=== PATIENT | female | born 1995 | race Caucasian/White ===

== ENCOUNTER 2019-09-29 14:17 | Outpatient (CLI) | payer OTHER, SELFPAY ==
--- NOTE | ~2019-09-29 | US_ITS ---
EXAMINATION: US OB <= 14 weeks fetus DATE: 09/29/2019 15:01 INDICATION: Threatened . Assess dating and viability of during first trimester. TECHNIQUE: Real-time pelvic ultrasound utilizing both a transvaginal and transabdominal probe was pe rformed. The interpreting radiologist was not present for the study. COMPARISON: None. FINDINGS: The uterus measures 10.4 x 5.0 x 6.2 cm. There is an intrauterine gestational sac. A yolk sac and fe kody pole are identified. The crown rump length measures 1.9 cm, which correlates with an estimated ge stational age of 8 weeks and 3 days. heart motion is identified measuring 161 beats per minute (bpm) by M-mode Doppler. The right ovary is not visualized. The left ovary measures 2.7 x 2.2 x 2.7 cm. 2.2 cm anechoic corpus luteum cyst in the left ovary. Vascular flow identified at the left ovary on color Doppler. There is no free fluid in the pelvis. IMPRESSION: 1. Single living fetus with heart rate of 161 bpm. 2. Gestational age by ultrasound of 8 weeks 3 day(s) +/- 4 day(s) with ultrasound estimated date of delivery (YORDY) of 05/07/2020. Reviewed, dictated and finalized at location A. IMPRESSION: 1. Single living fetus with heart rate of 161 bpm. 2. Gestational age by ultrasound of 8 weeks 3 day(s) +/- 4 day(s) with ultraso und estimated date of delivery (YORDY) of 05/07/2020.
== END 2019-09-29 14:18 | disposition home or self-care (01) ==
PROVIDERS: Visit Provider Obstetrics & Gynecology
DX: O20.0 Threatened abortion (principal); Z3A.08 8 weeks gestation of pregnancy
CPT/HCPCS: 76801

== ENCOUNTER 2019-09-29 15:39 | Outpatient (RCR) | payer OTHER, SELFPAY | END 2019-12-28 23:59 | disposition home or self-care (01) | LOC: ANHLAB 15:39 | PROVIDERS: Visit Provider Obstetrics & Gynecology | DX: O20.0 Threatened abortion (principal); Z3A.00 Weeks of gestation of pregnancy not specified | CPT/HCPCS: 36415; 86900; 86901 ==

== ENCOUNTER 2020-03-17 14:15 | Outpatient (RCR) | payer OTHER, SELFPAY ==
--- NOTE | 2020-03-17 15:59 | PTOPEVAL ---
INITIAL PHYSICAL THERAPY EVALUATION and PLAN OF CARE Thank you for referring Judith Gonzales to [facility].? I will recheck Judith in 2 wks, due to my vacation. If further PT is needed, will follow 1-2x/week for 3 weeks. Please review, sign, date and return this plan of care ARMINDA. I agree with and certify that the following plan of care is medically necessary. Referring Physician Date Admitting Provider: Attending Provider: Angela Mcgill CNM Referring Provider: *PT Outpatient Evaluation Start: 03/17/20 14:46 Freq: Status: Active Protocol: Document 03/17/20 14:40 TRACI (Rec: 03/17/20 15:59 TRACI [id number]) Therapy Assessment Status Assessment Status Assessment Status Evaluation Outpatient Past Medical History Past Medical History No Past Medical/Surgical History Patient/Family Denies Significant Past Medical/ Surgical History Source of Past Medical History Patient Evaluation Information Problem Diagnosis pelvic pain, hip pain Onset about 6 wks ago Additional Evaluation Detail - due date April Subjective Information Began to have hip, pelvic pain Query Text:As Reported By Patient/ - SIJ/maternity belt was Family gotten for her - which has helped. About 2 wks ago - climbing stairs during fire drill - after that couldn't walk, felt like she pulled a muscle in her pelvis. Lasted for the rest of the day - felt a little better next morning. Will have discomfort throughout the day - comes and goes. Generally sleeps okay. Mornings - pretty good - gets worse as day goes on. At times will have difficulty putting wt on R LE, legs feel unequal when standing. 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 Hand Dominance Right Medications Home Meds (Include: OTC, RX, Vitamins, vitamins, iron Herbals, Dose, Route,and Frequency) Query Text:Home Med Entries Will No Longer Recall From Past Visits. Home Meds Must Be Re-entered With Each Visit. Comments Additional Prior Level of Function recreation - sleep, cook, Comments garden, shop, crafting Pain Assessment Timing of Pain Assessment Timing of Pain Assessment
--- NOTE | 2020-03-31 15:34 | PCPTNOTE ---
Patient called & cancelled scheduled appointment this date due to feeling better, no need for PT. Stated will call if pain returns.
--- NOTE | 2020-04-20 08:06 | PCPTNOTE ---
PHYSICAL THERAPY DISCHARGE NOTE Admitting Provider: Attending Provider: Gwen Perez MD Patient:Judith Gonzales Date of :1995 Judith has not returned for any further treatments since 03/17/2020. She cancelled her follow up visit as she was doing well, therefore she will be discharged at this time. Patient?s initial visit was on 03/17/2020 14:30 and she had a total of 1 visit. The goals have been met. Thank you for referring Judith to [facility]. Please review, sign, date and return this discharge summary ARMINDA. I have been updated about Judith's current status and I agree with discharge from the above service at this time. Referring Physician Date
== END 2020-04-21 11:06 | disposition home or self-care (01) ==
LOC: ANHPT 14:15
PROVIDERS: Visit Provider Obstetrics & Gynecology
DX: R10.2 Pelvic and perineal pain (principal); M25.559 Pain in unspecified hip
CPT/HCPCS: 97110; 97161

== ENCOUNTER 2020-04-29 15:00 | Outpatient (CLI) | payer OTHER, SELFPAY ==
[2020-04-29 15:40] LABS: Basophils Percent Auto 0.3 % (0.2-1.2); Eosinophils Percent Auto 0.5 % (0-4.4); Hematocrit 38.5 % (37.0-47.0); Hemoglobin 12.7 g/dL (12.0-15.0); Immature Granulocyte Absolute 0.07 K/mm3 (0.00-0.031); Immature Granulocyte Percent A 0.8 % (0-0.5); Lymphocytes Absolute Auto 2.03 K/mm3 (0.9-3.2); Lymphocytes Percent Auto 23.5 % (18.3-44.2); Mean Platelet Volume 9.8 fl (7.4-10.4); Monocytes Absolute Auto 0.6 K/mm3 (0.1-0.6); Monocytes Percent Auto 6.9 % (2.6-8.5); Neutrophils Absolute Auto 5.9 K/mm3 (1.3-6.7); Nucleated Red Blood Cells Perc 0.2 % (0.0-0.2); Platelet Count Result 301 k/mm3 (150-375); Red Blood Count 3.85 M/mm3 (4.2-5.4); Red Cell Distribution Width 14.6 % (11.5-14.5); White Blood Count 8.7 K/mm3 (4.5-10.0)
[2020-04-29 15:45] VITALS: BP 127/73; PULSE 98
[2020-04-29 15:51] LABS: Potassium 3.6 mmol/L (3.4-5.0)
[2020-04-29 16:00] VITALS: BP 119/79; PULSE 101
[2020-04-29 16:02] LABS: Alanine Aminotransferase 14 U/L (4-35); Albumin Level 3.8 g/dL (3.5-5.1); Alkaline Phosphatase 171 U/L (38-126); Anion Gap 12 mmol/L (8-16); Aspartate Amino Transferase 29 U/L (14-36); Bilirubin,Total 0.3 mg/dL (0.2-1.3); Blood Urea Nitrogen 7 mg/dL (7-17); Calcium 9.5 mg/dL (8.4-10.2); Carbon Dioxide 22 mmol/L (22-30); Chloride 105 mmol/L (98-107); Estimated Glomerular Filt Rate > 60; Glucose 129 mg/dL (65-105); Sodium 139 mmol/L (137-145); Uric Acid 6.1 mg/dL (2.5-7.5)
[2020-04-29 16:15] VITALS: BP 116/75; PULSE 99
[2020-04-29 16:20] VITALS: BP 127/73; PULSE 112
[2020-04-29 16:27] VITALS: BP 127/73; PULSE 112
[2020-04-29 16:43] LABS: Add Urine Microscopic? YES; Appearance Urine Cloudy (Clear); Bacteria Urine Trace /hpf; Bilirubin Urine Negative (Negative); Blood Urine Negative (Negative); Color Urine Yellow (Yellow); Glucose Urine UA Negative (Negative); Ketones Urine Negative (Negative); Leukocyte Esterase Ur 3+ LEU/UL (NEGATIVE); Nitrate Urine Negative (Negative); Protein Urine Negative (Negative); Specific Grav Ur 1.012 (1.001-1.035); Squamous Epithelial Cell Urine Many /hpf (Few); Urobilinogen Urine Negative mg/dL (<2.0); WBC Urine 51-75 /hpf (0-3)
[2020-04-29 16:58] LABS: Creatinine Urine 64.9 mg/dL; Total Protein Urine Random 11 mg/dL
== END 2020-04-29 16:35 | disposition home or self-care (01) ==
LOC: ANHOBOP 15:05 → ANHOBPP 15:05
PROVIDERS: Visit Provider Obstetrics & Gynecology
DX: O13.9 Gestational [pregnancy-induced] hypertension without significant proteinuria, unspecified trimester (principal); Z3A.00 Weeks of gestation of pregnancy not specified
CPT/HCPCS: 36415; 59025; 80053; 81001; 82570; 84156; 84550; 85025; 87086; 87088; 99199

== ENCOUNTER 2020-05-03 05:05 | Inpatient (IN) | payer OTHER, SELFPAY ==
[2020-05-03] VITALS (122 sets, daily range): BP systolic 100–146; BP diastolic 39–91; PULSE 57–135; RESP 18; TEMP 36.8–37.7; O2SAT 73–100; BMI 30.8
--- NOTE | 2020-05-03 05:44 | LDADM ---
This patient, Judith Gonzales, was admitted to Labor/Delivery/Recovery 104 on 05/03/20 at 05:05. Plans for labor, pain management and were discussed with patient. Patient/family oriented to hospital policies and general routines including ID bracelet, bed and alarms, visiting hours, pain management, procedures, bathroom and other care routines, personal items, smoking policy, room service/diet and guest tray routines, security routines, and visiting hours. Patient/Family are encouraged to report perceived risks to care and to ask questions if they do not understand what they are told or what they should do. See OBIX for further documentation.
[2020-05-03 06:02] LABS: Basophils Percent Auto 0.4 % (0.2-1.2); Eosinophils Absolute Auto 0.1 K/mm3 (0-0.3); Hemoglobin 12.4 g/dL (12.0-15.0); Immature Granulocyte Percent A 1.1 % (0-0.5); Lymphocytes Absolute Auto 2.36 K/mm3 (0.9-3.2); Mean Corpuscular HGB Conc 34.4 g/dl (32-36); Mean Corpuscular Hemoglobin 32.8 pg (26-34); Mean Corpuscular Volume 95.2 fl (80-100); Mean Platelet Volume 9.8 fl (7.4-10.4); Monocytes Absolute Auto 0.7 K/mm3 (0.1-0.6); Monocytes Percent Auto 7.9 % (2.6-8.5); Neutrophils Absolute Auto 5.8 K/mm3 (1.3-6.7); Neutrophils Percent Auto 63.6 % (45.5-73.1); Nucleated Red Blood Cells Perc 0.3 % (0.0-0.2); Platelet Count Result 306 k/mm3 (150-375); Red Blood Count 3.78 M/mm3 (4.2-5.4); Red Cell Distribution Width 14.3 % (11.5-14.5); White Blood Count 9.1 K/mm3 (4.5-10.0)
--- NOTE | 2020-05-03 06:03 | P.PNAN_ITS ---
Anes - Eval Pre Procedure Procedure: labor epidural Date/Time: 05/03/20 06:03 Surgeon: bryce Pre Op Diagnosis: Induction of Labor Patient Data Age: 24 Gender: F Height: 1.65 m Weight: 84 kg Last Vital Signs Temp 36.8 C 05/03/20 05:31 Pulse 101 H 05/03/20 06:01 BP 123/79 05/03/20 06:01 Allergies Allergy/AdvReac Type Severity Reaction Status Date / Time amoxicillin Allergy Unknown itchy Verified 04/11/20 13:41 Home Medications Medication Instructions Recorded Confirmed Type PNV cmb#95-ferrous fumarate-FA 1 tablet PO DAILY 04/11/20 04/11/20 History [] ferrous sulfate 143 mg PO ONCE 04/11/20 04/11/20 History Laboratory Tests 05/03/20 05:38 WBC Pending RBC Pending Hgb Pending Hct Pending MCV Pending MCH Pending MCHC Pending RDW Pending Plt Count Pending MPV Pending Immature Gran % (Auto) Pending Neut % (Auto) Pending Lymph % (Auto) Pending Kaufman % (Auto) Pending Eos % (Auto) Pending Baso % (Auto) Pending Lymph # (Auto) Pending Kaufman # (Auto) Pending Eos # (Auto) Pending Baso # (Auto) Pending Abs Immat Gran (auto) Pending Absolute Neuts (auto) Pending Absolute Nucleated RBC Pending Nucleated RBC % Pending Patient hx anesthesia problems: none Family hx anesthesia problems: none PMFSH Family History Family History Father Depression Sibling Heart murmur Social History Social History (System 09/30/19 @ 13:57 by Benita Victor) Smoking status: Never smoker Second hand tobacco smoke exposure: No Substance use: never Spiritual care concerns: No Exam Day of Procedure 05/03/20 06:03
[2020-05-03] MEDS: LACTATED RINGERS 1,000 ML 125 ML IV CONT ×2 (06:04→09:37)
[2020-05-03] MEDS: OXYTOCIN 30 UNITS/NS 500 ML 30 UNITS/500 ML BAG 6 UNITS IV CONT (06:04)
--- NOTE | 2020-05-03 07:48 | WPDOBADMIT ---
Obstetrics - Admit Note Admission Note: record reviewed. No pertinent additions to the history and/or any subsequent changes in the physical findings that are not consistent with the expected course of the were found. EIL at 39.2 weeks, SVE 3-4/70/-1 AROM small amount of light meconium stained fluid Additions to the history and/or subsequent changes in the physical findings follow. None.
[2020-05-03 08:57] LABS: Rapid Plasma Reagin Non-Reactive (NonReactive)
[2020-05-03] MEDS: ONDANSETRON INJ 4 MG/2 ML VIAL IV PUSH (12:05)
[2020-05-03] MEDS: CLINDAMYCIN 900 MG/NS 50 ML 900 MG/50 ML PIGGYBACK 50 MG IVPB ×2 (15:08→23:57)
--- NOTE | 2020-05-03 17:39 | PM.OBPRVD ---
OB - Delivery Note Procedure Delivery date: 05/03/20 Procedure: vaginal . events: Labor Induction Intrapartal events: None Induction method: AROM and per pitocin protocol Delivery monitor: external FHT and internal uterine Route of delivery: Episiotomy description: None Laceration Description: Vaginal - 2nd Degree Delivery repair: vicryl Specimen: Yes Estimated blood loss (mL): 435 Anesthesia type: Epidural Disposition: other () Baby Date of : 05/03/20 Time of : 17:18 Weeks of gestation at delivery: 39 Infant gender: Female Weight (pounds): 9 Weight (ounces): 7 presentation: vertex position: Right Occiput Anterior Placenta delivery description: Spontaneous cord vessel description: 3 Vessels, Loose and Around Body x1 score one minute: 8 score five minutes: 9 Narrative: Mom and baby skin to skin after repair completed.
[2020-05-03] MEDS: OXYTOCIN 30 UNITS/NS 500 ML 30 UNITS/500 ML BAG 125 UNITS IV CONT (17:50)
[2020-05-03] MEDS: BENZOCAINE 20% AER SPR (*SP) 56 GM CAN 1 SPRAY TOPICAL (19:23)
[2020-05-03] MEDS: WITCH HAZEL 40 PADS 1 PAD TOPICAL (19:23)
[2020-05-03] MEDS: IBUPROFEN 600 MG TABLET PO (20:12)
--- NOTE | 2020-05-03 20:37 | OBPPTRN ---
Patient transferred to post room 284 via wheelchair. Support person present. Oriented to unit, room, information board, rooming in, admission packet and security measures. Patient verbalizes understanding.
[2020-05-03] MEDS: ACETAMINOPHEN 325 MG TABLET 650 MG PO (23:57)
[2020-05-04] MEDS: IBUPROFEN 600 MG TABLET PO ×3 (03:22→14:46)
[2020-05-04 05:08] LABS: Hematocrit 27.2 % (37.0-47.0); Hemoglobin 9.2 g/dL (12.0-15.0)
[2020-05-04 07:45] VITALS: BP 111/80; PULSE 94; RESP 18; TEMP 36.6; O2SAT 99
--- NOTE | 2020-05-04 07:52 | PM.OBPNVD ---
OB - PN: Subj Subjective Date/time seen: 05/04/20 07:52 Patient comments: no complaints baby status: doing well OB - PN: Obj Data Labs CBC & Chem 7: 05/04/20 04:37 Labs: Laboratory Results - last 24 hr 05/03/20 05/04/20 05:38 04:37 Hgb 9.2 L D Hct 27.2 L RPR Non-reactive OB - PN A/P Plan day: 1 Plan: routine care Time Spent With Patient Time: Total time spent is greater than 50% in coordination of care (as documented) at patient's floor/unit and/or counseling patient: Time with patient: less than 15 minutes Review of Systems Review of Systems: All systems reviewed & are unremarkable except as noted in HPI and below Exam Narrative: Exam Narrative: Fundus firm and vaginal flow controlled. No lower ext redness, warmth, or edema. Negative homans. Const: General: comfortable Chest: Breast/axilla inspection: normal inspection of the breasts Resp: Effort & Inspection: normal respiratory effort Cardio: Rate: regular rate GI: GI Palp: Yes Soft to palpation Psych: Appearance: grossly normal Affect: normal affect Attitude: cooperative Thought content: Yes Normal thought content present Judgement: Good judgement present (Psych)
[2020-05-04] MEDS: POLYSACCHARIDE IRON COMPLEX 150 MG CAPSULE PO ×2 (09:11→16:36)
[2020-05-04] MEDS: MULTIVIT/MIN/PREN/FOL AC/IRON TABLET 1 TAB PO (09:11)
[2020-05-04] MEDS: DOCUSATE SODIUM 100 MG CAPSULE PO ×2 (09:11→16:36)
[2020-05-04] MEDS: ACETAMINOPHEN 325 MG TABLET 650 MG PO ×2 (12:25→23:41)
--- NOTE | 2020-05-04 13:20 | WPDANLDPN2 ---
Anes-Prog Note L&D Date/Time: 05/04/20 13:20 Comfortable throughout: labor and delivery Neuraxial method: epidural Epidural/Spinal procedure site: clean & non-tender Neuro status: Neuro function grossly intact. Cardiovascular status: normal Respiratory status: normal Airway patency: baseline Mental status: baseline Post-Op hydration status: normal Vital Signs: Last Vital Signs Temp 97.8 F 05/04/20 07:45 Pulse 94 05/04/20 07:45 Resp 18 05/04/20 07:45 BP 111/80 05/04/20 07:45 Pulse Ox 99 05/04/20 07:45 Pain score (VAS): 0/10 I/O: Intake & Output 05/03/20 05/04/20 05/04/20 23:59 07:59 15:59 Intake Total 2050 50 Output Total 300 Balance 1750 50 Patient feedback: Patient satisfied with anesthetic care.
--- NOTE | 2020-05-04 19:05 | PC.NURSE ---
1700 Patient and FOB viewed the discharge video Mother & Baby Care, The First Two Weeks . Patient was given the opportunity and encouraged to ask questions. Patient verbalized understanding of information shared and has been given the mother/baby guide for home reference.
[2020-05-04 21:00] VITALS: BP 123/79; PULSE 94; RESP 16; TEMP 36.4; O2SAT 100
[2020-05-05] MEDS: IBUPROFEN 600 MG TABLET PO (05:30)
[2020-05-05 08:15] VITALS: BP 124/79; PULSE 99; RESP 18; TEMP 36.6; O2SAT 99
--- NOTE | 2020-05-05 08:15 | PC.NURSE ---
Consulted with patient, mother reports has been going well, without difficulties or discomfort. Reviewed feeding cues, frequencies, duration of feedings, feeding elimination flow sheet, and signs of adequate intake. Demonstrated stimulation techniques to wake for feeding. Assisted with to breast. Reviewed positioning/alignment in cross cradle, holding breast in U hold and guided asymmetrical latch on. discussed rational for each. Infant was able to latch correctly with first attempt. nursed eagerly, with steady draws and frequent swallowing noted. Reviewed signs of a correct latch, effective nursing and suck swallow ratio. was able to maintain latch without discomfort to mother. Nipple care reviewed. Suggested to stimulate while feeding to keep infant awake and nursing effectively for increased intake and to assist with maintaining deep latch. Instructed mother to call out for RN assistance if she is unable to latch infant for feeding or she has discomfort with nursing. Instructed feeding should be initiated three hours from start of last feeding or if feeding cues are noted before. Mother voiced understanding of information shared. Mother is able to independently latch infant with appropriate positioning/alignment. She is feeding as required and waking infant to feed if needed. Infant has had at least 8 effective feedings in the past 24 hours, and is currently meeting outcomes for weight, output, jaundice and feeding frequencies. Mother states she feels confident to continue effective at home. Reviewed transition to breast milk, signs of adequate intake, and engorgement/relief. Instructed to call ICP if intake/output less than required. Reviewed regular medications mother is taking. Information provided per Ysabel. Reviewed community resources on the [facility] website and in the Mom/Baby guide. Information on outpatient services provided. Mother has no further questions at this time.
--- NOTE | 2020-05-05 08:18 | PM.OBPNVD ---
OB - PN: Subj Subjective Date/time seen: 05/05/20 08:18 Patient comments: no complaints baby status: doing well OB - PN: Obj Data Labs CBC & Chem 7: 05/04/20 04:37 OB - PN A/P Plan day: 2 Plan: routine care and discharge home (F/U in 4 weeks) Time Spent With Patient Time: Total time spent is greater than 50% in coordination of care (as documented) at patient's floor/unit and/or counseling patient: Time with patient: less than 15 minutes Review of Systems Review of Systems: All systems reviewed & are unremarkable except as noted in HPI and below Exam Narrative: Exam Narrative: Fundus firm and vaginal flow controlled. No lower ext redness, warmth, or edema. Negative homans. Const: General: comfortable Chest: Breast/axilla inspection: normal inspection of the breasts Resp: Effort & Inspection: normal respiratory effort Cardio: Rate: regular rate GI: GI Palp: Yes Soft to palpation Psych: Appearance: grossly normal Affect: normal affect Attitude: cooperative Thought content: Yes Normal thought content present Judgement: Good judgement present (Psych)
[2020-05-05] MEDS: MULTIVIT/MIN/PREN/FOL AC/IRON TABLET 1 TAB PO (10:10)
[2020-05-05] MEDS: POLYSACCHARIDE IRON COMPLEX 150 MG CAPSULE PO (10:10)
[2020-05-05] MEDS: DOCUSATE SODIUM 100 MG CAPSULE PO (10:10)
[2020-05-05] MEDS: ACETAMINOPHEN 325 MG TABLET 650 MG PO (10:11)
--- NOTE | 2020-05-06 03:08 | P.DS_ITS ---
DS: Admitting Diagnosis Admitting Diagnosis Admitting Diagnosis: Induction of Labor OB - DS: Summary OB Procedures : None OB Procedures Intrapartum: Spontaneous Vag Delivery OB Procedures: : None Time Spent with Patient Time attestation: Total time spent providing and/or coordinating discharge services: DS: Data Data Completed and Pending Pending studies at discharge: Pending at discharge 05/03/20 18:06 Surgical [PTH] Routine Discharge Plan Discharge Attending physician on discharge: Gwen Perez Discharging Clinician: Angela Mcgill Patient Disposition: Home, Self-Care Activity: pelvic rest Diet: as tolerated Discharge Instructions: Education: Mom and Baby Guide Given to: Mother Follow-Up: Call your delivering provider's office for an appointment to be seen in: 4 Weeks Mom and baby should come to the [facility] for the follow-up appointment. Appointment Date/Time: May 06, 2020 at 9:00 am What to expect at your follow-up visit: Physical Assessment Call [phone] if you are unable to keep your appointment time. BREAST CARE: * Wear a snug supportive bra. * For engorgement discomfort: Breast Feeding: * Apply warm moist washcloths * Express milk as needed to relieve engorgement * Wear loose clothing * For sore nipples: * Identify correct latch-on * Apply warm moist washcloths before and after nursing * Air dry nipples after nursing * May apply Lansinoh cream to nipples EPISIOTOMY/PERINEAL CARE: * Until bleeding stops, use your aaron bottle after urinating * Change your pad frequently throughout the day * You may take sitz baths several times a day (fill your bathtub with warm water and soak for 20 minutes.) Do NOT bathe in the water * No tub baths until seen by your physician - You may shower ACTIVITY: * Rest as much as possible. * Do not exercise or lift anything heavier than your baby (such as laundry or other children.) * Avoid stairs or driving as much as possible. * Do not put anything into the vagina. No douching, tampons, or sexual activity until seen by physician. NOTIFY PHYSICIAN IF YOU HAVE ANY QUESTIONS OR IF ANY OF THE FOLLOWING SYMPTOMS OCCUR: * If your stitches become red, swollen, or more painful than what you have experienced in the hospital. * If your vaginal bleeding becomes foul smelling. * If your vaginal bleeding becomes more heavy than a period or if your bleeding changes from pink to bright red. However, you may pass an occasional walnut- sized clot once or twice for the first week . * If you experience a sharp, shooting pain in you calves. * If you discover a hard, reddened area on your breast or if you experience flu- like symptoms. DIET: * Eat regular, well-balanced meals. * Drink plenty of fluids daily. If , drink to thirst. 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
[2020-05-06 08:58] VITALS: BP 127/86; PULSE 81; RESP 20; TEMP 37.2; O2SAT 100
== END 2020-05-05 12:23 | disposition home or self-care (01) | DRG 807 ==
LOC: ANHOB2 05-05 11:37 → ANHLDR 05-06 10:20
PROVIDERS: Advanced Practice Midwife; Admitting Provider Obstetrics & Gynecology; Visit Provider Obstetrics & Gynecology
DX: O77.0 Labor and delivery complicated by meconium in amniotic fluid (principal); Z37.0 Single live birth; Z3A.39 39 weeks gestation of pregnancy; O69.2XX0 Labor and delivery complicated by other cord entanglement, with compression, not applicable or unspecified; O70.1 Second degree perineal laceration during delivery
CPT/HCPCS: 36415; 85014; 85018; 85025; 86592; 86850; 86900; 86901; 88307; A9270; J0131; J2405; J2590; J2795; J7120

== ENCOUNTER 2020-05-07 20:12 | Emergency (ER) | payer OTHER, SELFPAY ==
--- NOTE | ~2020-05-07 | XR_ITS ---
EXAMINATION: XR chest 1V portable EXAM DATE: 05/07/2020 21:29 INDICATION: Dyspnea. 4 days . Weakness, headache, swelling. TECHNIQUE: Portable AP frontal chest x-ray was obtained. There is no prior study for comparison. FINDINGS: The lungs are clear. There are no pleural effusions. The cardiomediastinal silhouette is within normal limits. There is no pneumothorax suspected. The bones and soft tissues are unremarkab le. IMPRESSION: No acute cardiopulmonary findings. Reviewed, dictated and finalized at location A.
[2020-05-07 20:25] VITALS: BP 150/85; PULSE 98; RESP 18; TEMP 36.4; O2SAT 100
--- NOTE | 2020-05-07 21:01 | ECG_ITS ---
Measurements Intervals [place] Rate: 68 P: 42 [place]: 162 QRS: 42 QRSD: 83 T: 29 QT: 357 QTc: 382 Interpretive Statements SINUS RHYTHM NORMAL ECG Electronically Signed On 05-08-2020 7:06:09 CDT by Chetan Ba D.O.
--- NOTE | 2020-05-07 21:03 | ED.GENADULT ---
HPI - General Adult General Chief complaint: OB/Uterine Contractions Stated complaint: post complications Time Seen by Provider: 05/07/20 20:45 Source: RN notes reviewed History of Present Illness HPI narrative: Patient presents to emergency department from home for postoperative complication. Patient states that she had a vaginal delivery 4 days ago with no complications. States that since that time she has been having some intermittent headaches as well as intermittent swelling of her hands and her feet intermittent dyspnea and midsternal chest tightness. Currently she denies having a headache chest pain or shortness of breath. 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 Perez this evening and was recommended come to the emergency department for further evaluation. Denies any fevers or chills cough vomiting or diarrhea does note intermittent nausea Related Data Home Medications Medication Instructions Recorded Confirmed PNV cmb#95-ferrous fumarate-FA 1 tablet PO DAILY 04/11/20 04/11/20 [] ferrous sulfate 143 mg PO ONCE 04/11/20 04/11/20 Allergies Allergy/AdvReac Type Severity Reaction Status Date / Time amoxicillin Allergy Unknown itchy Verified 04/11/20 13:41 Review of Systems Review of Systems: Narrative: Gen.: Denies fevers or chills Eyes: Denies eye pain or visual change ENT: Denies congestion Respiratory: Reports intermittent shortness of breath denies cough CV: Reports intermittent chest pain denies palpitations GI: Denies abdominal pain vomiting or diarrhea. Reports intermittent nausea denies burning, urgency, frequency or hematuria Musculoskeletal: Denies back pain or muscle pain Neuro: Denies numbness, tingling, weakness or focal weakness Skin: Denies rash Except as documented, all other systems reviewed and negative [facility] Past Medical History Medical History (Updated 05/07/20 @ 23:21 by Navid Wray DO) Patient denies significant medical history Family History Family History Father Depression Sibling Heart murmur Social History Social History Smoking status: Never smoker Second hand tobacco smoke exposure: No Substance use: never Spiritual care concerns: No Exam Narrative: Exam Narrative: APPEARANCE: No acute distress, nontoxic, resting in bed EYES: EOMI, PERRL HEENT: Normocephalic, atraumatic, OMM RESPIRATORY: No respiratory distress Clear to auscultation bilaterally with no rhonchi wheezing or rales. CARDIOVASCULAR: Regular rate and rhythm without murmurs rubs or gallops. ABDOMINAL: Soft, nontender, nondistended, no rebound or guarding MUSCULOSKELETAl: Moves all extremities. No clubbing, cyanosis or edema. NEURO: Awake and alert x 4. Following commands, speech normal, no focal deficits SKIN:: Warm, dry. No rashes lesions or abrasions PSYCHIATRIC: Normal affect/mood, Course Course Emergency Course: Patient is remained symptomatic throughout her stay in the ED Called and discussed with Dr. Perez presentation work-up. Discussed lab results vital signs. At the time feels patient may be discharged home recommend patient started on Macrobid for UTI and will follow as outpatient Discussed with patient results of workup and diagnosis. Discussed need for follow-up with primary care, proper use of medication, and reasons to return to the emergency department. Patient understands and agrees to current treatment plan Vital Signs Vital signs: Vital Signs Temperature 97.6 F 05/07/20 20:25 Pulse Rate 98 05/07/20 20:25 Respiratory Rate 18 05/07/20 20:25 Blood Pressure 150/85 H 05/07/20 20:25 Pulse Oximetry 100 05/07/20 20:25 Temperature 97.6 F 05/07/20 20:25 Pulse Rate 79 05/07/20 22:12 Respiratory Rate 20 05/07/20 22:12 Blood Pres
[2020-05-07 21:58] LABS: Basophils Absolute Auto 0.1 K/mm3 (0.0-0.1); Basophils Percent Auto 0.6 % (0.2-1.2); Eosinophils Absolute Auto 0.2 K/mm3 (0-0.3); Eosinophils Percent Auto 2.2 % (0-4.4); Hematocrit 29.7 % (37.0-47.0); Hemoglobin 9.7 g/dL (12.0-15.0); Immature Granulocyte Absolute 0.21 K/mm3 (0.00-0.031); Immature Granulocyte Percent A 2.4 % (0-0.5); Lymphocytes Absolute Auto 2.29 K/mm3 (0.9-3.2); Lymphocytes Percent Auto 26.2 % (18.3-44.2); Mean Corpuscular HGB Conc 32.7 g/dl (32-36); Mean Corpuscular Hemoglobin 33.1 pg (26-34); Mean Corpuscular Volume 101.4 fl (80-100); Mean Platelet Volume 8.8 fl (7.4-10.4); Monocytes Absolute Auto 0.5 K/mm3 (0.1-0.6); Monocytes Percent Auto 5.7 % (2.6-8.5); Neutrophils Absolute Auto 5.5 K/mm3 (1.3-6.7); Neutrophils Percent Auto 62.9 % (45.5-73.1); Nucleated Red Blood Cells Absolute Auto 0.1 K/mm3 (0.0-0.012); Nucleated Red Blood Cells Perc 0.7 % (0.0-0.2); Platelet Count Result 385 k/mm3 (150-375); Red Blood Count 2.93 M/mm3 (4.2-5.4); White Blood Count 8.7 K/mm3 (4.5-10.0)
[2020-05-07 22:10] LABS: Alanine Aminotransferase 33 U/L (4-35); Albumin Level 3.4 g/dL (3.5-5.1); Alkaline Phosphatase 107 U/L (38-126); Anion Gap 7 mmol/L (8-16); Aspartate Amino Transferase 51 U/L (14-36); Bilirubin,Total 0.2 mg/dL (0.2-1.3); Blood Urea Nitrogen 10 mg/dL (7-17); Calcium 9.2 mg/dL (8.4-10.2); Carbon Dioxide 26 mmol/L (22-30); Chloride 109 mmol/L (98-107); Estimated CRCL calculation 98 ml/min; Estimated Glomerular Filt Rate > 60; Glucose 99 mg/dL (65-105); Potassium 4.1 mmol/L (3.4-5.0); Sodium 142 mmol/L (137-145)
[2020-05-07 22:12] VITALS: BP 134/84; PULSE 79; RESP 20; O2SAT 100
[2020-05-07 22:22] LABS: NT Pro B Type Natriuretic Pept 338 PG/ML (5-100); Troponin I < 0.012 ng/mL (0.000-0.034)
--- NOTE | 2020-05-07 22:23 | PC.NURSE ---
Pt currently pumping, pt denies and pain, nausea, dizziness, or Anderson at this time. Pt does have some swelling to her lower extremities.
[2020-05-07 22:39] LABS: Add Urine Microscopic? YES; Appearance Urine Clear (Clear); Bilirubin Urine Negative (Negative); Blood Urine 3+ (Negative); Color Urine Straw (Yellow); Glucose Urine UA Negative (Negative); Ketones Urine Negative (Negative); Leukocyte Esterase Ur 2+ LEU/UL (Negative); Mucus Urine Rare /lpf; Nitrate Urine Negative (Negative); Protein Urine Negative (Negative); RBC Urine >75 /hpf (0-2); Squamous Epithelial Cell Urine Rare /hpf (Few); Urobilinogen Urine Negative mg/dL (<2.0); WBC Urine 51-75 /hpf
[2020-05-07] MEDS: NITROFURANTOIN MONOHYD MACROCR 100 MG CAP PO (23:41)
[2020-05-08 00:07] VITALS: BP 127/86; PULSE 75; RESP 18; O2SAT 100
== END 2020-05-07 23:44 | disposition home or self-care (01) ==
PROVIDERS: Emergency Provider Emergency Medicine
DX: O86.20 Urinary tract infection following delivery, unspecified (principal); O90.89 Other complications of the puerperium, not elsewhere classified; R42 Dizziness and giddiness
CPT/HCPCS: 36415; 71045; 80053; 81001; 83880; 84484; 85025; 87086; 87088; 93005; 99284; A9270

== ENCOUNTER 2020-06-22 21:35 | Outpatient (CLI) | payer OTHER, SELFPAY ==
[2020-06-22] MEDS: IBUPROFEN 600 MG TABLET PO (22:08)
--- NOTE | 2020-06-22 22:10 | PC.NURSE ---
See Reagan Dockery CNM note
--- NOTE | 2020-06-22 22:37 | PM.IMHP ---
H&P: HPI History of Present Illness Date/Time: 06/22/20 22:37 Chief complaint: bleeding Narrative: Judith Gonzales is a 24 year old female 6 weeks pp who presents after small revision of laceration in office with continued bleeding. Pt couldn't get it to stop with guaze and pressure, no dizziness or lightheadedness Review of Systems Review of Systems: All systems reviewed & are unremarkable except as noted in HPI and below PMFSH Past Medical History Medical History (Updated 05/09/20 @ 00:00 by Gaye De La Rosa) Patient denies significant medical history Family History Family History Father Depression Sibling Heart murmur Social History Social History Smoking status: Never smoker Second hand tobacco smoke exposure: No Substance use: never Spiritual care concerns: No Meds Home Medications and Allergies Home Medications Medication Instructions Recorded Confirmed Type PNV cmb#95-ferrous fumarate-FA 1 tablet PO DAILY 04/11/20 04/11/20 History [] ferrous sulfate 143 mg PO ONCE 04/11/20 04/11/20 History nitrofurantoin monohyd/m-cryst 100 mg PO Q12H 7 Days #14 cap 05/07/20 Rx [Macrobid] Allergies Allergy/AdvReac Type Severity Reaction Status Date / Time amoxicillin Allergy Unknown itchy Verified 04/11/20 13:41 Exam Const: General: cooperative Nutritional Appearance: average body habitus Orientation/consciousness: patient oriented x3 Resp: Effort & Inspection: normal respiratory effort : OB/external & speculum: external exam normal (small oozing from left labia, silver nitrate and pressure applied) Assessment and Plan Additional Plan 1. pp revision of healed laceration, increased bleeding bleeding stopped, monitored and pt sent home with clean guaze, to monitor and leave in overnight, call in am for follow up. pt dc'd home with her
== END 2020-06-22 22:40 | disposition home or self-care (01) ==
LOC: ANHOBOP 21:38
PROVIDERS: Visit Provider Obstetrics & Gynecology
DX: O26.859 Spotting complicating pregnancy, unspecified trimester (principal); Z3A.00 Weeks of gestation of pregnancy not specified
CPT/HCPCS: 99199; A9270

== ENCOUNTER 2024-09-03 18:55 | Observation (INO) | payer OTHER, SELFPAY ==
--- OUTSIDE RECORDS SUMMARY | 2024-09-03 18:53 | XMS_ITS | Clinical Summary ---
Author Organization [facility] [place] [address] [facility] [place] Address [address] [facility] [place] [address] Care Team Providers Care Snowboard Designer Name Role Phone David Lindquist MD Primary Care Provider [phone] No, Physician Unavailable Lennie Dockery GIZZARD PEELER Unavailable [phone] Allergies Active Allergy Reactions Criticality Noted Date Comments Amoxicillin Itching Medium 04/18/2018 Amoxicillin Itching Low 05/23/2022 Medications cetirizine (ZyrTEC) 5 mg tablet Take 1 tablet (5 mg total) by mouth as needed for allergies Active norethindrone (MICRONOR) 0.35 mg tablet norethindrone (contraceptive) 0.35 mg tablet TAKE 1 TABLET BY MOUTH EVERY DAY Active promethazine-D M (PROMETHAZINE- DM) 1.25-3 mg/mL syrupIndicatio ns:Acute cough Take 5 mL by mouth every 4 (four) hours as needed for cough 120 mL 3 Active Additional Information Patient not taking.Reported on 06/19/2023 cyclobenzaprin e (FLEXERIL) 5 mg tablet Take 1 tablet (5 mg total) by mouth 3 (three) times a day as needed for muscle spasms 30 tablet 3 Active fluticasone propionate (FLONASE) 50 mcg/actuation nasal spray SHAKE LIQUID AND USE 2 SPRAYS IN EACH NOSTRIL DAILY 48 g 1 4 Active Active Problems Problem Noted Date Diagnosed Date Choroid plexus cyst 03/26/2024 Overview (03/26/2024): Resolved Hip pain 03/26/2024 Overview (03/26/2024): & pubis pain - referred to [facility] 03/17 Annual physical exam 06/19/2023 Assessment & Plan (06/19/2023 11:30 AM TEXTILE TECHNICAL OFFICER): Discussed lifestyle modifications, diet and exercise. Routine blood work ordered/reviewed today. Yearly vision and dental examinations. Tachycardia 09/06/2022 Essential hypertension 08/06/2022 Assessment & Plan (06/19/2023 11:32 AM TEXTILE TECHNICAL OFFICER): At goal at this time [place] current regimen Likely stress vs white coat syndrome related Assessment & Plan (03/14/2023 3:09 PM CDT): BP Readings from Last 3 Encounters: 03/14/23 132/82 02/04/23 124/86 11/29/22 110/92 Vitals BP 132/82 (BP Location: Left arm, Patient Position: Sitting) Pulse 124 Resp 16 Ht 165.1 cm (5' 5 ) Wt 77.1 kg (170 lb) SpO2 98% BMI 28.29 kg/m Lab Results Component Value Date POTASSIUM 4.7 05/23/2022 bp at goal at this time Blood Pressure Follow-up: Lifestyle modifications education provided on increase physical activity. Assessment & Plan (09/06/2022 10:29 AM TEXTILE TECHNICAL OFFICER): BP Readings from Last 3 Encounters: 09/06/22 130/86 08/06/22 121/84 05/23/22 128/91 Vitals BP 130/86 (BP Location: Right arm, Patient Position: Sitting) Pulse 104 Resp 18 Ht 168 cm (5' 6.14 ) Wt 81.2 kg (179 lb 1.6 oz) LMP 05/18/2022 SpO2 98% BMI 28.78 kg/m Lab Results Component Value Date POTASSIUM 4.7 05/23/2022 bp at goal at this time Blood Pressure Follow-up: Lifestyle modifications education provided on increase physical activity. Assessment & Plan (08/06/2022 12:15 PM TEXTILE TECHNICAL OFFICER): BP Readings from Last 3 Encounters: 08/06/22 121/84 05/23/22 128/91 Vitals BP 121/84 (BP Location: Left arm, Patient Position: Sitting) Pulse 64 Resp 18 Ht 168 cm (5' 6.14 ) Wt 80.3 kg (177 lb) LMP 05/18/2022 BMI 28.45 kg/m Lab Results Component Value Date POTASSIUM 4.7 05/23/2022 States bp is better at home - has been making diet changes Blood Pressure Follow-up: Lifestyle modifications education provided on sodium reduction, increase physical activity and weight reduction. Pt states that bp was elevated in her obs office, she was swtiched to estrogen only ocp for now and referred back to us for eval bp improved on repeat, pt otherwise asymptomatic. Ed precuations given and to check bp at home Sinus headache 05/23/2022 Assessment & Plan (05/23/2022 9:53 AM TEXTILE TECHNICAL OFFICER): No improvement with claritin or ibuprofen will do trail with flonase, have pt rtc if no improvement, will then refer to ENT Estimated Date of Delivery Comme nts Yes 09/20/2024 Immunizations Immunization Administration Dates Next Due Influenza, Unspecified 09/06/2022(Deferr ed: Patient Refused),05/23/2022(Deferred: Patient Refused),09/12/2021(Deferred: Patient Refused) Meningococcal MCV4P (Menactra) 05/04/2016 Tdap 05/04/2016 Family History Medical History Relation Name Comments Anxiety disorder Father Asthma Mother Diabetes Mother Heart disease Paternal Grandfather Bladder Cancer Paternal Grandmother Relation Name Status Comments Father Alive Mother Alive Paternal Grandfather Paternal Grandmother Sister Alive Social History Tobacco Use Types Packs/Day Years Used Date Smoking Tobacco: Never Smokeless Tobacco: Never Tobacco Cessation:Counseling Given: Not Answered Alcohol Use Standard Drinks/Week Comments Yes 2 (1 standard drink = 0.6 oz pur e alcohol) OCC PHQ-2 Answer Date Recorded PHQ-2 Total Score (If total score is 3 or more points, staff should administer the PHQ-9) 0 06/19/2023 Personal Safety Answer Date Recorded Have you ever been in or are you currently in a harmful physical or emotional relationship or is someone making you feel afraid or unsafe? 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 file Not on file Not on file Obstetrics History Para Term AB IAB SAB Ectopic Multiple Livin g Live Births 2 0 0 0 0 0 0 0 Date Outcome GA Total Labor Labor/2nd/3rd Weight Sex Type Anes PTL Kavita A1 A5 Name Clin Current Last Filed Vital Signs Vital Sign Reading Time Taken Comments Blood Pressure 139/87 03/27/2024 7:09 AM CDT Pulse 98 03/27/2024 7:09 AM CDT Temperature 36.8 C (98.2 F) 03/27/2024 7:09 AM CDT Respiratory Rate 16 03/27/2024 7:09 AM CDT Oxygen Saturation 100% 03/27/2024 7:09 AM CDT Inhaled Oxygen Concentration - - Weight 78.5 kg (173 lb) 03/27/2024 7:09 AM CDT Height 166.4 cm (5' 5.5 ) 03/27/2024 7:09 AM CDT Body Mass Index 28.35 03/27/2024 7:09 AM CDT Plan of Treatment Health Maintenance Due Date Last Done Comments Cervical Cancer Screening 1994 Hepatitis C Screening 1994 Varicella Vaccines (1 of 2 - 13+ 2-dose series) 11/08/2007 Hepatitis B Screening 2012 Influenza Vaccine (#1) 2024 Depression Screening 06/19/2024 06/19/2023, 08/06/2022 Regular Well Visit/Exam 18-64 06/19/2024, 04/18/2018 DTaP/Tdap/Td Vaccine (2 - Td or Tdap) 05/04/2026 05/04/2016 HPV Vaccines Aged Out No longer eligi ble based on patient's age to complete this topic Pneumococcal vaccine <65 Aged Out No longer eligible based on patient's age to complete this topic [facility] Care Teams Snowboard Designer Relationship Specialty Start Date End Date David Lindquist MD PCP - General Family Medicine 05/23/22 No, Physician 05/23/22 Lennie Dockery NP Nurse Practitioner Obstetrics and Gynecology 09/06/22
--- OUTSIDE RECORDS SUMMARY | 2024-09-03 18:53 | XMS_ITS | Referral Summary ---
Author Organization [facility] [place] [address] [facility] lto Address [address] [place] [address] Care Team Providers Care Telehealth Case Manager Name Role Phone David Lindquist MD Primary Care Provider [phone] No, Physician Unavailable Lennie Dockery WATCH DIAL PRINTER Unavailable [phone] Allergies Active Allergy Reactions Criticality Noted Date [...] (03/26/2024): & pubis pain - referred to [facility] 03/17 Annual physical exam 06/19/2023 Assessment & Plan (06/19/2023 11:30 AM GEOLOGY PROFESSOR): Discussed lifestyle modifications, diet and exercise. Routine blood work ordered/reviewed today. Yearly vision and dental examinations. Tachycardia 09/06/2022 Essential hypertension 08/06/2022 Assessment & Plan (06/19/2023 11:32 AM GEOLOGY PROFESSOR): At goal at this time [place] current [...] activity. Assessment & Plan (09/06/2022 10:29 AM GEOLOGY PROFESSOR): BP Readings from Last 3 Encounters: 09/06/22 [...] activity. Assessment & Plan (08/06/2022 12:15 PM GEOLOGY PROFESSOR): BP Readings from Last 3 Encounters: 08/06/22 [...] 05/23/2022 Assessment & Plan (05/23/2022 9:53 AM GEOLOGY PROFESSOR): No improvement with claritin or ibuprofen will do trail with flonase, have pt rtc if no improvement, will then refer to ENT Estimated Date of Delivery Comme nts Yes 09/20/2024 Immunizations Immunization Administration Dates Next Due Influenza, Unspecified 09/06/2022(Deferr ed: Patient Refused),05/23/2022(Deferred: Patient Refused),09/12/2021(Deferred: Patient Refused) Meningococcal MCV4P (Menactra) 05/04/2016 Tdap 05/04/2016 Social History Tobacco Use Types Packs/Day Years [...] file Not on file Not on file Last Filed Vital Signs Vital Sign Reading [...] 03/27/2024 7:09 AM CDT Plan of Treatment Not on file Insurance [facility] Care Teams Telehealth Case Manager Relationship Specialty Start Date End Date David Lindquist MD PCP - General Family Medicine 05/23/22 No, Physician 05/23/22 Lennie Dockery NP [phone] (work) Nurse Practitioner Obstetrics and Gynecology 09/06/22
--- OUTSIDE RECORDS SUMMARY | 2024-09-03 18:53 | XMS_ITS | Clinical Summary ---
Author Organization [facility] Address [address] [place] [address] Care Team Providers Care Delivery Associate Name Role Phone Unavailable Primary Care Provider Unavailabl e Source Comments [facility],non-owned Affiliates and Associated Physician Practices is amultiple site organization consisting of ambulatory clinics and hospital sitesin [place], [place], [place] and [place]. This disclosure is being madepursuant to the Care Everywhere program and may not contain all information available regarding this patient. Last updated 18.[facility] [email or web address] Allergies Active Allergy Reactions Criticality Noted Date Comments Amoxicillin Itching 12/25/2018 Medications * Be aware that medications may not be up to date on this document. Alwaysverify current medications with the patient. Medication Sig Dispensed Refills Start Date End Date Status benzonatate (TESSALON) 200 MG capsule Take 1 capsule by mouth 3 times daily as needed for Cough 30 capsule 07/07/2019 Active Immunizations Name Administration Dates Next Due MENINGOCOCCAL CONJUGATE (MCV4P) 05/04/2016 TDAP (7yrs+) 05/04/2016 Social History Tobacco Use Types Packs/Day Years Used Date Smoking Tobacco: Never Smokeless Tobacco: Never Sex and Gender Information Value Date Recorded Sex Assigned at Not on file Gender Identity Not on file Sexual Orientation Not on file Last Filed Vital Signs Vital Sign Reading Time Taken Comments Blood Pressure 108/70 07/07/2019 10:01 AM SPRINKLER INSTALLER Pulse 103 07/07/2019 10:01 AM SPRINKLER INSTALLER Temperature 38.5 C (101.3 F) 07/07/2019 10:01 AM SPRINKLER INSTALLER Respiratory Rate 16 07/07/2019 10:01 AM SPRINKLER INSTALLER Oxygen Saturation 97% 07/07/2019 10:01 AM SPRINKLER INSTALLER Inhaled Oxygen Concentration - - Weight 68.9 kg (152 lb) 07/07/2019 10:01 AM SPRINKLER INSTALLER Height 166.4 cm (5' 5.5 ) 07/07/2019 10:01 AM CS T Body Mass Index 24.91 07/07/2019 10:01 AM SPRINKLER INSTALLER Plan of Treatment Health Maintenance Due Date Last Done Comments PAP SMEAR 1994 HIV SCREENING 2009 HEPATITIS C SCREENING 11/02/2012 HEPATITIS B VACCINE (1 of 3 - 19+ 3-dose series) 2013 COVID-19 VACCINE (2023-2 5 season) 2024 INFLUENZA VACCINE (#1) 2024 DEPRESSION SCREENING 07/15/2024 DTAP/TDAP/TD VACCINES (2 - T d or Tdap) 05/04/2026 05/04/2016 ZOSTER VACCINE (1 of 2) 2044 MENINGOCOCCAL VACCINE Aged Out 05/04/2016 No ke kristofer eligible based on patient's age to complete this topic HIB VACCINE Aged Out No longer eligi ble based on patient's age to complete this topic HPV VACCINE Aged Out No longer eligi ble based on patient's age to complete this topic MENINGOCOCCAL (Group B) VACCINE Aged Out No longer eligible based on patient's age to complete this topic PNEUMOCOCCAL VACCINE Aged Out No long er eligible based on patient's age to complete this topic
--- OUTSIDE RECORDS SUMMARY | 2024-09-03 18:53 | XMS_ITS | Referral Summary ---
Author Organization [facility] Address [address] [place] [address] Care Team Providers Care Kitchen And Counter Worker Name Role Phone Unavailable Primary Care Provider Unavailabl e Source Comments [facility],non-owned Affiliates and Associated Physician Practices is amultiple site organization consisting of ambulatory clinics and hospital sitesin [place], [place], [place] and [place]. This disclosure is being madepursuant to the Care Everywhere program and may not contain all information available regarding this patient. Last updated 18.[facility] Allergies Active Allergy Reactions Criticality Noted Date [...] Comments Blood Pressure 108/70 07/07/2019 10:01 AM BANDER AND CELLOPHANER MACHINE HELPER Pulse 103 07/07/2019 10:01 AM BANDER AND CELLOPHANER MACHINE HELPER Temperature 38.5 C (101.3 F) 07/07/2019 10:01 AM BANDER AND CELLOPHANER MACHINE HELPER Respiratory Rate 16 07/07/2019 10:01 AM BANDER AND CELLOPHANER MACHINE HELPER Oxygen Saturation 97% 07/07/2019 10:01 AM BANDER AND CELLOPHANER MACHINE HELPER Inhaled Oxygen Concentration - - Weight 68.9 kg (152 lb) 07/07/2019 10:01 AM BANDER AND CELLOPHANER MACHINE HELPER Height 166.4 cm (5' 5.5 ) 07/07/2019 10:01 AM CS T Body Mass Index 24.91 07/07/2019 10:01 AM BANDER AND CELLOPHANER MACHINE HELPER Plan of Treatment Not on file Administered Medications
--- OUTSIDE RECORDS SUMMARY | 2024-09-03 18:54 | XMS_ITS | Data Portability ---
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 Discussed plan. Not available 07/24/2024 13:07:18 08/07/2024 08/07/2024 Patient is _33__weeks . Discussed plan. Not available 08/07/2024 12:22:39 08/21/2024 08/21/2024 Patient is _35__weeks . Discussed plan. Not available 08/21/2024 15:26:55 08/28/2024 08/28/2024 Patient is ___weeks . Discussed plan. Not available 08/30/2024 12:44:02 Plan of Treatment Reminders Order Date Submit Date Provider Last Modified By Organization Details Last Modified Time Details Appointments OB ROUTINE 2024 01:00P Mya Dockery CNM Not available Not available Not available OB ROUTINE 2024 01:00P Mya Dockery CNM Not available Not available Not available INDUCTION 2024 05:00A Mya Dockery CNM Not available Not available Not available Lab None recorded. Referral None recorded. Procedures None recorded. Surgeries None recorded. Imaging US, obstetric , follow-up 2024 025 [email or web address] [address], [address], [place], [address], 08/22/2024 11:03:17 Medication Orders None recorded. Patient TargetsNo targets recorded. Patient InstructionsNo instructions recorded. Reason for Referral None Reported. Results Created Date Observation Date Name Description Value Unit Range Abnormal Flag Note LastModifiedBy Organization Detail LastModifiedTime 06/26/2006/26/2024 HEMAT OCRIT (HCT) HCT 34.4 % (based on docume nted legal sex) 34.0-4 5.0 Not Available [facility] (Lab) [address] [place], [address], 06/27/2024 13:50:59 06/26/20 24 06/26/2024 HEMOG LOBIN (HGB) HGB 11.2 g/dL (based on docume nted legal sex) 11.6-1 5.4 low Not Available [facility] (Lab) [address] [place], [address], 06/27/2024 13:51:00 06/26/20 24 06/26/2024 GTT - GESTA ODALYS L BRENNA Mejia, ACOG OB glucose, 1 hour screen 134 mg/dL 70-135 Not Available [facility] (Lab) [address] [place], [address], 06/27/2024 13:51:00 06/26/20 24 06/26/2024 HIV 1/2 ANTIG EN/AN TIBOD Y, REFLE X CONFI RMATI ON HIV antigen/anti body Nonrea ctive nonrea ctive HIV-1 antig en and HIV-1 /HIV- 2 antib odies were not detec darren. No labor atory evide nce of HIV infec tion. Not Available [facility] (Lab) [address] [place], [address], 06/27/2024 13:51:00 06/26/20 24 06/26/2024 RPR SCREE N, REFLE X TITER /CONF IRMAT ION RPR screen Nonrea ctive nonrea ctive Not Available [facility] (Lab) [address] [facility], [place], [address], 06/27/2024 13:51:01 08/21/19 25 08/21/2024 CULTU RE: GROUP B STREP SCREE N, REFLE X SUSCE PTIBI LITY result report SEE RESULT S BELOW Test: Cultu re: Group B Strep , Refle x Susce ptibi lity ([facility]/ [facility]/K H/VWH ) Speci men Sourc e: Vagin a/Rec delia Speci men Type: Vagin al/Re ctal Speci men Date: 025 1423 Resul t Date: 2024 1430 Resul t Statu s: Final resul t Abnor mal: No Resul ting Lab: [facility] [address] [facility] [address] Tel: CULTU RE ----- ----- ----- --- No Group B strep isola darren at 2 days (jacobo ctive broth enhan cemen t) Not Available [facility] (Lab) [address] [facility], [place], [address], 08/24/2024 15:32:52 06/26/20 24 06/26/2024 US, obste tric, follo w-up No observ ation record ed. [email or web address] [facility], [place], [address], 06/27/2024 23:22:07 06/26/20 24 06/26/2024 US, obste tric, follo w-up No observ ation record ed. [facility] [address], [place], [address], 06/26/2024 17:26:34 08/21/19 25 08/21/2024 US, obste tric, follo w-up No observ ation [facility] [address], [place], [address], 08/21/2024 18:34:14 08/21/19 25 08/21/2024 US, obste tric, follo w-up No observ ation record ed. [address], [place], [address], 08/22/2024 19:45:06 Result Notes None recorded. Problems Name Problem SNOMED Code Status Onset Date Resolution Date Notes Provider Name and Address Organization Details Recorded Time Choroid plexus cyst 050033615 Completed 01/14/2020 Resolved Suzie nuñez, [facility] 0 16:02:59 Hip pain 22868413 Completed & pubis pain - referred to [facility] 03/17 Suzie nuñez [facility] 0 16:02:59 Pregnanc y 35159448 Completed 201905/11/2020 Suzie nuñez [facility] 4 18:13:58 Pregnanc y 20147570 Active 2023 Suzie nuñez [facility] 4 18:13:58 Large for gestatio n age fetus 145339579 Active 9lb 7 oz in 2019 Lennie Dockery, MARTY [address], [place], [address], [facility] 4 18:28:59 Pregnanc y detectio n examinat ion Completed 201910/19/2020 Encounte r for pregnanc y test, result positive ;Recorde d Elsewher e: No Locat ion: [facility] S ource: EHR Unloading Checker jacob: N Practi ce ID: [id number] Curtis lable Time: 03:00:00 PM Suzie nuñez [facility] 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 1 14:08:47 Problem Notes None recorded. Procedures Surgical History Date Name Laterality Status Provider Name and Address Organization Details Recorded Time 4 Date of Last Pap Smear completed Suzie Muñoz [facility] 02/12/2024 15:07:18 2 extraction of wisdom tooth completed Suzie Muñoz [facility] 07/27/2022 16:22:08 Imaging Results Imaging Date Name Status LastModified by Organiz ation Details LastModified Time 06/26/2024 US, obstetric, follow-up completed [email or web address] [address], [place], [address], 06/27/2024 23:22:07 06/26/2024 US, obstetric, follow-up completed [place] [address], [place], [address], 06/26/2024 17:26:34 08/21/2024 US, obstetric, follow-up completed [place] [address], [place], [address], 08/21/2024 18:34:14 08/21/2024 US, obstetric, follow-up completed [address], [place], [address], 08/22/2024 19:45:06 Procedure Notes None recorded. Medical Equipment None Reported. Allergies Allergen ID Allergen Name Allergen Category Reaction Reaction Severity Criticality Documentation Date Start Date Code Code System Note Provider Name and Address Organization Details Recorded Time 210 amoxicill in medicatio n Not available Not available Not available 10/29/2019 723 RxNorm Aide Garza [facility], [place] - [facility] 0 16:37:58 Medications Name Sig Start Date Stop Date Status Note LastModified by Organization Details LastModified Time promethazin e-DM 6.25 mg-15 mg/5 mL oral syrup TAKE 5 ML BY MOUTH EVERY 4 HOURS NEEDED FOR COUGH 02/11 completed Not Available Not Available Not Available acetaminoph en 325 mg tablet TAKE 1 TO 2 TABLETS BY MOUTH EVERY 4 TO 6 HOURS NEEDED FOR PAIN. NOT TO EXCEED 10 TABLETS OF TYLENOL AND NORCO COMBINED IN A 24 HOURS PERIOD 07/27 completed Not Available Not Available Not Available doxycycline hyclate 100 mg capsule 10/26 completed Not Available Not Available Not Available clindamycin HCl 300 mg capsule TAKE 1 CAPSULE BY MOUTH THREE TIMES DAILY FOR 3 DAYS THEN STOP 07/27 completed Not Available Not Available Not Available benzonatate 200 mg capsule 02/11 completed Not Available Not Available Not Available hydrocodone 5 mg-acetamin ophen 325 mg tablet TAKE 1 TABLET BY MOUTH EVERY 4 TO 6 HOURS NEEDED FOR SEVERE PAIN 07/27 completed Not Available Not Available Not Available ondansetron HCl 4 mg tablet Take 1 tablet every 4-6 hours by oral route as needed, for nausea and vomiting. active Not Available Not Available No t Available ketorolac 10 mg tablet 02/11 completed Not Available Not Available Not Available metoprolol succinate ER 25 mg tablet,exte nded release 24 hr 02/11 completed Not Available Not Available Not Available ibuprofen 600 mg tablet TAKE 1 TABLET BY MOUTH EVERY 6 HOURS WITH FOOD NEEDED FOR PAIN 07/27 completed Not Available Not Available Not Available methylpredn isolone 4 mg tablets in a dose pack FOLLOW PACKAGE DIRECTION S 02/11 completed Not Available Not Available Not Available norethindro ne (contracept nichol) 0.35 mg tablet TAKE 1 TABLET BY MOUTH EVERY DAY 02/11 completed Not Available Not Available Not Available fluticasone propionate 50 mcg/actuati on nasal spray,suspe nsion SHAKE LIQUID AND USE 2 SPRAYS IN EACH NOSTRIL DAILY 02/11 completed Not Available Not Available Not Available doxycycline hyclate 100 mg tablet 10/28 completed Not Available Not Available Not Available B6-500 500 mg tablet Take by oral route. 10/19 completed Not Available Not Available Not Available cyclobenzap rine 5 mg tablet TAKE 1 TO 2 TABLETS BY MOUTH EVERY 8 HOURS FOR PAIN active Not Available Not Available No t Available levonorgest rel 0.15 mg-ethinyl estradiol 30 mcg tablets,3 mos pack(91) 10/28 completed Not Available Not Available Not Available nitrofurant oin monohydrate /macrocryst als 100 mg capsule 10/19 completed Not Available Not Available Not Available calcium 10/19 completed Not Available Not Available Not Available 05/16 completed Not Available Not Available Not Available Lacey 3 05/16 completed Not Available Not Available Not Available Daysee 0.15 mg-30 mcg (84)/10 mcg(7) tablets,3 month dose pack TAKE ONE TABLET BY MOUTH EVERY DAY 10/26 completed Not Available Not Available Not Available Slynd 4 mg (28) tablet TAKE 1 TABLET BY MOUTH EVERY DAY 05/16 completed Not Available Not Available Not Available Vitals Date Recorded Body height Body mass index (BMI) Body weight Systolic blood pressure Diastolic blood pressure Provider Name and Address Organization Details Last Updated DateTime 07/24/2024 166.37 cm 32.4 kg/m2 59743.28 926 g 124 mm[Hg] 83 mm[Hg] Suzie Muñoz [facility] 12:22:10 Date Recorded Body height Body mass index (BMI) Body weight Systolic blood pressure Diastolic blood pressure Provider Name and Address Organization Details Last Updated DateTime 08/07/2024 166.37 cm 33.1 kg/m2 75795.66 g 121 mm[Hg] 78 mm[Hg] Suzie Muñoz [facility] 12:21:07 Date Recorded Body weight Systolic blood pressure Diastolic blood pressure Provider Name and Address Organization Details Last Updated DateTime 08/21/2024 75526.8434 8 g 129 mm[Hg] 82 mm[Hg] Suzie Muñoz [facility] 08/21/2024 15:13:22 Date Recorded Body weight Body mass index (BMI) Body height Systolic blood pressure Diastolic blood pressure Provider Name and Address Organization Details Last Updated DateTime 08/28/2024 53821.02 822 g 33.8 kg/m2 166.37 cm 133 mm[Hg] 84 mm[Hg] Suzie Muñoz [facility] 16:50:08 Social History Question Answer Notes LastModified by Organizat ion Details LastModified Time Tobacco Smoking Status Never Smoker Rosa Ochoa savannah, [facility] 10/26/2022 11:53:53 Do You Have An Advance Directive? No [email or web address] Information not available 05/16/2021 What Is Your Level Of Alcohol Consumption? None [email or web address] Information not available 02/12/2024 If You Are , What Was Your Level Of Alcohol Consumption Prior To ? Occasional [email or web address] Information not available 10/26/2022 Are You Blind Or Do You Have Difficulty Seeing? No [email or web address] Information not available 10/19/2020 What Is Your Level Of Caffeine Consumption? Occasional [email or web address] Information not available 10/19/2020 How Much Tobacco Do You Chew? None [email or web address] Information not available 05/16/2021 In The 14 Days Before Symptom Onset, Have You Had Close Contact With A Laboratory-confir med COVID-19 While That Case Was Ill? No [email or web address] Information not available 10/19/2020 In The 14 Days Before Symptom Onset, Have You Had Close Contact With A Person Who Is Under Investigation For COVID-19 While That Person Was Ill? No [email or web address] Information not available 05/16/2021 Have You Been To An Area Known To Be High Risk For COVID-19? No [email or web address] Information not available 10/19/2020 Are You Deaf Or Do You Have Serious Difficulty Hearing? No [email or web address] Information not available 10/19/2020 What Type Of Diet Are You Following? REGULAR [email or web address] Information not available 10/19/2020 Do You Or Have You Ever Used E-cigarettes Or Vape? Never Used Electronic Cigarettes [email or web address] Information not available 10/26/2022 What Is The Highest Grade Or Level Of School You Have Completed Or The Highest Degree You Have Received? [id number] [email or web address] Information not available 05/16/2021 Are There Any Guns Present In Your Home? No [email or web address] Information not available 05/16/2021 What Was The Date Of Your Most Recent Tobacco Screening? 08/28/2024 [email or web address] Information not available 08/28/2024 Have You Ever Been Counseled For Unhealthy Alcohol Use? No [email or web address] Information not available 10/26/2022 Do You Use Protection During Sex? No [email or web address] Information not available 05/16/2021 Do You Use Your Seat Belt Or Car Seat Routinely? Yes [email or web address] Information not available 10/19/2020 Do You Have Smoke And Carbon Monoxide Detectors In Your Home? Yes [email or web address] Information not available 10/19/2020 Do You Or Have You Ever Used Smokeless Tobacco? Never Used Smokeless Tobacco [email or web address] Information not available 10/26/2022 How Much Tobacco Do You Smoke? No Information not available 02/12/2020 Do You Feel Stressed (tense, Restless, Nervous, Or Anxious, Or Unable To Sleep At Night)? [id number] [email or web address] Information not available 10/19/2020 Do You Use Any Illicit Or Recreational Drugs? No Information not available 10/19/2020 Do You Use Sunscreen Routinely? Yes [email or web address] Information not available 10/19/2020 Has Tobacco Cessation Counseling Been Provided? No Information not available 10/26/2022 Have You Used IV Drugs? No [email or web address] Information not available 05/16/2021 Do You Or Have You Ever Used Any Other Forms Of Tobacco Or Nicotine? No [email or web address] Information not available 10/26/2022 Sex: Unknown Functional Status Question Answer Note LastModified by Organizat ion Details LastModified Time Do you have difficulty walking or climbing stairs? No [email or web address] Information not available 10/26/2022 Are you able to walk? YESWOREST [email or web address] Information not available 10/19/2020 Are you able to care for yourself? Yes [email or web address] Information not available 10/26/2022 Do you have difficulty dressing or bathing? No [email or web address] Information not available 10/26/2022 What is your exercise level? Occasional [email or web address] Information not available 11/27/2019 Mental Status None recorded. Family History Relationship Description Onset Age of this Age Resolved Age Notes LastModified by Organization Details LastModified Time Maternal Grandfather Hypertensive disorder [email or web address] Not available 2019 16:39:26 Father No current problems or disability [email or web address] Not available 16:30:33 Mother No current problems or disability [email or web address] Not available 16:30:33 Notes:Maternal grandfather: Hypertension Medical History Condition Response Allergies (Food, seasonal, environmental ) N Other N Breast Cancer N Drug/Latex Allergies/Reactions N Blood Transfusion N Dermatologic Disorders N Lung Disease N Defects or Inherited Disease N Breast Problem N Gestational Diabetes N Hematologic disorders N Anesthesia Complications N History of STI N Deep Vein Thrombosis N Polycystic ovary syndrome N Anxiety Disorder N Autoimmune disease N Arthritis N Infertility N Polyps N Acid Reflux (GERD) N History of abnormal pap N Cancer N Stroke N Varicosities N Neurologic/Epilepsy N Endometriosis N High Cholesterol N Headaches N Fibromyalgia N Kidney Disease N Heart Problems N Kidney or Bladder Problems N Thyroid Problems N GI Problems N Eating Disorder N Anemia N Art (IVF or FET) N Psychiatric Illness N Ovarian Cancer N Diabetes N Pulmonary (TB, Asthma) N Hepatitis/Liver Disease N Eczema N Urinary Tract Infection N Abuse/Domestic Violence N Asthma N Trauma/Violence N Depression/ depression N Heart Disease N Pre-Eclampsia N Hypertension Y Osteoporosis N Thrombophilias N Gynecological History Statement/Question Response Date of Last Mammogram Date of LMP 12/15/2023 On BCP's at Conception? N N Was last menstrual period normal Y STIs/STDs N HPV Vaccine N Duration of Flow (days) 7 Current Control Method Age at First Child 24 Frequency of Cycle (Q days) 28 Sexually Active? Y Date of DEXA bone scan Age of first menstrual cycle 10 Date of Last Pap Smear 02/12/2024 Sexual Problems? N Desired Control Method LMP Approximate N Obstetrics History GPAL:G 2 P 1 0 0 1 Type Value Full Term 1 Living 1 Total 2 Past Encounters Encounter ID Performer Location Encounter Start Date Encounter Closed Date Diagnosis/Indication Diagnosis SNOMED-CT Code Diagnosis ICD10 Code Diagnosis Note [id number] Alberto Perez MD [place] [address] [address] 10/29/2019 16:00:03 10/29/2019 17:24:09 Routine care 696448935 Z34.01 [id number] Lennie Dockery [facility] [address],[place] [address] 11/27/2019 14:58:29 11/27/2019 16:04:54 Routine care 815563849 Z34.92 [id number] [facility] [address],[place] [address] 12/17/2019 14:18:54 01/06/2020 11:21:36 Routine care 233179128 Z34.92 [id number] Wilma Short [place] [address],[place] [address] 12/17/2019 14:19:26 12/17/2019 17:40:30 screening for malformation 766156123 Z36.3 [id number] [facility] [address] [address] 01/14/2020 13:51:51 01/14/2020 14:51:21 Routine care 130343830 Z34.92 [id number] [facility] [address],[place] [address] 01/14/2020 13:52:36 01/14/2020 14:50:48 condition affecting obstetrical care of mother 013707398 O35.8XX0 Z3A.23 [id number] Lennie Dockery [facility] [address],[place] [address] 02/12/2020 14:16:13 02/12/2020 15:50:05 Routine care 001361937 Z34.92 [id number] Angela Mcgill [address] [address] 02/23/2020 12:16:44 02/23/2020 14:36:50 Routine care 153776528 Z34.92 [id number] [facility] [address] [address] 03/11/2020 16:12:31 03/11/2020 17:20:59 Routine care 012884063 Z34.92 [id number] Lennie Dockery [facility] [address],[place] [address] 03/25/2020 16:01:10 03/27/2020 22:07:56 Routine care 741103202 Z34.92 [id number] Lennie Dockery [facility] [address],[place] [address] 04/08/2020 16:16:54 04/08/2020 16:48:12 Routine care 018052346 Z34.92 [id number] Lennie Dockery [facility] [address],[place] [address] 04/15/2020 15:00:52 04/15/2020 15:44:45 Routine care 206130643 Z34.92 [id number] Lennie Dockery [facility] [address],[place] [address] 04/22/2020 14:42:01 04/22/2020 15:35:28 Routine care 271832639 Z34.92 [id number] Lennie Dockery [facility] [address],[place] [address] 04/29/2020 15:03:58 04/29/2020 16:29:46 Routine care 179631999 Z34.92 [id number] Lennie Dockery [facility] [address],[place] [address] 05/10/2020 16:10:02 05/10/2020 17:47:11 Mixed anxiety and depressive disorder 793936089 F41.8 [id number] Lennie Dockery [facility] [address],[place] [address] 05/17/2020 16:50:57 05/19/2020 16:26:53 Elevated blood-pressure reading without diagnosis of hypertension 679549545 R03.0 [id number] Lennie Dockery [facility] [address],[place] [address] 06/03/2020 12:18:42 06/03/2020 16:34:36 care 681972265 Z39.2 Contracept ion care management 578266713 Z30.9 [id number] Lennie Dockery [facility] [address],[place] [address] 06/22/2020 17:21:23 06/23/2020 18:45:35 care 384883677 Z39.2 revision of repair, no charge [id number] Lennie Dockery [facility] [address],[place] [address] 10/19/2020 13:54:50 10/19/2020 16:03:24 Gynecologic examination 67418885 Z01.419 [id number] Lennie Dockery [facility] [address],[place] [address] 05/16/2021 12:24:03 05/16/2021 14:23:02 Surveillance of oral contraception 185926216 Z30.41 Contracept ion care management 822820359 Z30.9 [id number] Lennie Dockery [place] [address] [address] 07/27/2022 16:06:56 07/30/2022 14:38:51 Gynecologic examination 99248180 Z01.419 recheck bp at med check in 3 months Pain in pelvis 41671409 R10.2 refer to PT consider PCP for imaging [id number] Lennie Dockery [facility] [address],[place] [address] 10/26/2022 11:53:39 10/26/2022 12:27:26 Contraception care management 078147586 Z30.9 continue norethindr one if desires, can consider IUD (mirena) discussed call and will place on cycle if decides Elevated blood-pressure reading without diagnosis of hypertension 331957000 R03.0 cont to monitor see pcp for followup [id number] [facility] [address],[place] [address] 02/12/2024 13:57:44 02/12/2024 14:26:18 [id number] Lennie Dockery [facility] [address],[place] [address] 02/12/2024 13:58:16 02/12/2024 15:28:15 Amenorrhea 54834469 N91.2 Venereal d isease screening 271355019 Z11.3 [id number] [facility] [address],[place] [address] 03/18/2024 15:46:44 03/18/2024 17:36:21 screening 438422804 Z36.82 Z3A.13 [id number] Lennie Dockery [facility] [address],[place] [address] 03/18/2024 15:48:01 03/19/2024 11:22:08 Routine care 354066771 Z34.92 Gestation period, 13 weeks 29301408 Z3A.13 [id number] Lennie Dockery [facility] [address],[place] [address] 04/10/2024 11:30:07 04/10/2024 13:49:37 Routine care 980805648 Z34.92 [id number] [facility] [address],[place] [address] 05/06/2024 14:02:30 05/06/2024 15:06:26 screening for malformation 914370785 Z36.3 Z3A.20 [id number] [facility] [address] [address] 05/06/2024 14:03:06 05/06/2024 15:36:46 Routine care 501624635 Z34.92 [id number] [facility] [address] [address] 06/05/2024 12:30:49 06/05/2024 13:52:18 Gestation period, 24 weeks 978629355 Z3A.24 [id number] [facility] [address],[place] [address] 06/26/2024 14:05:58 06/26/2024 16:08:59 Large for gestation age fetus 966313117 O36.62X0 Z3A.27 [id number] Lennie Dockery [facility] [address],[place] [address] 06/26/2024 14:09:55 06/26/2024 15:25:58 Gestation period, 27 weeks 65791167 Z3A.27 [id number] Lennie Dockery [facility] [address],[place] [address] 07/24/2024 11:49:49 07/24/2024 13:46:14 Gestation period, 31 weeks 41329162 Z3A.31 [id number] Lennie Dockery [facility] [address],[place] [address] 08/07/2024 12:01:15 08/07/2024 12:32:47 Gestation period, 33 weeks 99665994 Z3A.33 [id number] Lennie Dockery [facility] [address],[place] [address] 08/21/2024 14:24:55 08/21/2024 15:38:20 Gestation period, 36 weeks 92751837 Z3A.36 [id number] [facility] [address],[place] [address] 08/21/2024 14:25:30 08/21/2024 15:09:26 Large for gestation age fetus 063584156 O36.62X0 Z3A.35 [id number] Lennie Dockery [facility] [address],[place] [address] 08/28/2024 16:30:25 08/31/2024 10:22:44 Gestation period, 36 weeks 94177653 Z3A.36 Health Concerns Section Related Observation LastModified by Organization Detai ls LastModified Time None Recorded Concern Status LastModified by Organization Details LastModified Time None Recorded Advance Directives Directive N: Payers Encounter Date Sequence Insurance Name Policy Number Policy Quesada Covered Member ID Quesada Member ID Guarantor Name 07/24/2024 1 [employer] [id number] Artis Virgener [id number] 2 Judith Woodbury 08/07/2024 1 [employer] [id number] Artis Virgener [id number] 2 Judith Woodbury 08/21/2024 1 [employer] [id number] Artis Woodbury [id number] 2 Judith Janet 08/21/2024 1 [employer] [id number] Artis Gonzales [id number] 2 Judith Janet 08/28/2024 1 [employer] [id number] Artis Gonzales [id number] 2 Judith Janet OBGyn Episode Ob Episode Information Episode Created Date Number of Fetuses Patient Bloodtype Patient rh Status Prepregnancy Weight lbs Domestic Partner Domestic Partner Phone Father Name Forming Department Supervisor Status 10/29/19 20 1 A Positive 143 CLOSED Fetus Data First Name Last Name Admitted to NICU Weight (g) Sex Living Outcome Pediatric Complications Fetus ID Race Codes Race Delivery Type 4280.77 45 F true Full Term 532 Vaginal Delivery Problems Problem Notes Problem Name Start Date End Date Resolution Snomed Code Not e Choroid plexus cyst 01/14/2020 SELFRESOLVED [id number] Resolved Hip pain [id number] & pubis pa in - referred to [facility] 03/17 Mario Calculation Initial Mario Date Initial Exam Date Initial Exam Provider Initial Ultrasound Date Last Menstrual Period Date Ultra Sound Weeks Gestation 05/08/2020 10/29/2019 09/29/2019 08/02/2019 8 Eighteen To Twenty Week Mario Update Ultra Sound Date Fundal Height At Umbil Quickening Date Ultra Sound Latest Weeks Gestation Final Mario Confirmed By Final Mario Confirmed Date Final Mario Date Ultra Sound Latest Days Gestation 0 [email or web address] 10/29/2019 05/08/20 20 0 Pre-jesus Flowsheet Flowsheet Date 10/29/2019 Power Score Blood Edema Fundus Height Fundus Units Glucose Ketones Leukocytes Nitrite Labor Signs Protein Cervic Dilation Cervic Effacement Cervic Station 12 trace Type Weight in lbs Pre/Post Dialysis Refused Weight 143.866524328716 BP Diastolic BP Location Tested BP Systolic BP Type 81 123 Fetus Heart Rate Present A 167 Fetus Movement Comments Flowsheet Date 11/27/2019 Power Score Blood Edema Fundus Height Fundus Units Glucose Ketones Leukocytes Nitrite Labor Signs Protein Cervic Dilation Cervic Effacement Cervic Station Type Weight in lbs Pre/Post Dialysis Refused Weight 144.236925466175 BP Diastolic BP Location Tested BP Systolic BP Type 81 119 Fetus Heart Rate Present A 155 Fetus Movement Comments pt doing well, to lab today plan 3 week anatomy and ob visit Flowsheet Date 12/17/2019 Power Score Blood Edema Fundus Height Fundus Units Glucose Ketones Leukocytes Nitrite Labor Signs Protein Cervic Dilation Cervic Effacement Cervic Station Type Weight in lbs Pre/Post Dialysis Refused BP Diastolic BP Location Tested BP Systolic BP Type Fetus Heart Rate Present Fetus Movement Comments Flowsheet Date 12/17/2019 Power Score Blood Edema Fundus Height Fundus Units Glucose Ketones Leukocytes Nitrite Labor Signs Protein Cervic Dilation Cervic Effacement Cervic Station 20 trace Type Weight in lbs Pre/Post Dialysis Refused Weight 147.204911302059 BP Diastolic BP Location Tested BP Systolic BP Type 78 120 Fetus Heart Rate Present Fetus Movement A Yes Comments Pt doing well. Baseline barbi katy. 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 Flowsheet Date 01/14/2020 Power Score Blood Edema Fundus Height Fundus Units Glucose Ketones Leukocytes Nitrite Labor Signs Protein Cervic Dilation Cervic Effacement Cervic Station Type Weight in lbs Pre/Post Dialysis Refused BP Diastolic BP Location Tested BP Systolic BP Type Fetus Heart Rate Present Fetus Movement Comments Flowsheet Date 01/14/2020 Power Score Blood Edema Fundus Height Fundus Units Glucose Ketones Leukocytes Nitrite Labor Signs Protein Cervic Dilation Cervic Effacement Cervic Station trace Type Weight in lbs Pre/Post Dialysis Refused Weight 156.050900850422 BP Diastolic BP Location Tested BP Systolic BP Type 83 L arm 118 sitting Fetus Heart Rate Present Fetus Movement A Yes 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 PT doing well. Leg cramps. Increase potassium. Flowsheet Date 02/12/2020 Power Score Blood Edema Fundus Height Fundus Units Glucose Ketones Leukocytes Nitrite Labor Signs Protein Cervic Dilation Cervic Effacement Cervic Station neg none 27 trace Type Weight in lbs Pre/Post Dialysis Refused Weight 165.300401971225 BP Diastolic BP Location Tested BP Systolic BP Type 75 116 Fetus Heart Rate Present A 154 Fetus Movement A Yes Comments patient is having hip pain, maternity support belt ordered, precautions, gct today Flowsheet Date 02/23/2020 Power Score Blood Edema Fundus Height Fundus Units Glucose Ketones Leukocytes Nitrite Labor Signs Protein Cervic Dilation Cervic Effacement Cervic Station neg none 29 trace Type Weight in lbs Pre/Post Dialysis Refused Weight 168.547229356609 BP Diastolic BP Location Tested BP Systolic BP Type 60 118 Fetus Heart Rate Present A 143 Fetus Movement A Yes Comments Maternity belt has really he lped. Pt doing well. She is a little upset there will not be another u/s because she didn't get great pics. Explained that insurance will not cover unless there is a medical reason to repeat. Pt was very understanding. Flowsheet Date 03/11/2020 Power Score Blood Edema Fundus Height Fundus Units Glucose Ketones Leukocytes Nitrite Labor Signs Protein Cervic Dilation Cervic Effacement Cervic Station neg none 30 trace Type Weight in lbs Pre/Post Dialysis Refused Weight 173.160136637780 BP Diastolic BP Location Tested BP Systolic BP Type 60 120 Fetus Heart Rate Present A 144 Fetus Movement A Yes Comments patient is having pelvic, ri b, and back pain, rec ice for rib pain, starts pt next week, precautions reviewed Flowsheet Date 03/25/2020 Power Score Blood Edema Fundus Height Fundus Units Glucose Ketones Leukocytes Nitrite Labor Signs Protein Cervic Dilation Cervic Effacement Cervic Station neg none 34 trace Type Weight in lbs Pre/Post Dialysis Refused Weight 178.453898662511 BP Diastolic BP Location Tested BP Systolic BP Type 87 127 Fetus Heart Rate Present A 150 Fetus Movement A Yes Comments patient is having BH contrac tions, precautions, gbs next visit Flowsheet Date 04/08/2020 Power Score Blood Edema Fundus Height Fundus Units Glucose Ketones Leukocytes Nitrite Labor Signs Protein Cervic Dilation Cervic Effacement Cervic Station neg none 36 trace Type Weight in lbs Pre/Post Dialysis Refused Weight 183.928474227488 BP Diastolic BP Location Tested BP Systolic BP Type 89 136 Fetus Heart Rate Present A 145 Fetus Movement A Yes Comments patient states that having h eartburn and contractions, labor precautions gbs done, preadmit on saturday Flowsheet Date 04/15/2020 Power Score Blood Edema Fundus Height Fundus Units Glucose Ketones Leukocytes Nitrite Labor Signs Protein Cervic Dilation Cervic Effacement Cervic Station 37 neg Type Weight in lbs Pre/Post Dialysis Refused Weight 183.192073904747 BP Diastolic BP Location Tested BP Systolic BP Type 78 L arm 135 sitting Fetus Heart Rate Present A 134 Fetus Movement Comments precautions 1/2 cm dilated f /u one week Flowsheet Date 04/22/2020 Power Score Blood Edema Fundus Height Fundus Units Glucose Ketones Leukocytes Nitrite Labor Signs Protein Cervic Dilation Cervic Effacement Cervic Station neg none 37 trace 2cm 70% -2 Type Weight in lbs Pre/Post Dialysis Refused Weight 183.237415203542 BP Diastolic BP Location Tested BP Systolic BP Type 83 125 Fetus Heart Rate Present A 155 Fetus Movement A Yes Comments patient is having pain and c ontractions, reviewed risk of c/s with pt power score favorable plan EIL at 39 + weeks Flowsheet Date 04/29/2020 Power Score Blood Edema Fundus Height Fundus Units Glucose Ketones Leukocytes Nitrite Labor Signs Protein Cervic Dilation Cervic Effacement Cervic Station neg trace 37 trace 3cm 70% -2 Type Weight in lbs Pre/Post Dialysis Refused Weight 185.196959583614 BP Diastolic BP Location Tested BP Systolic BP Type 87 148 Fetus Heart Rate Present A 142 Fetus Movement A Yes Comments PATIENT STATES THAT HAVING S OME PRESSURE, PELVIC PAIN, SPOTTING AFTER BEING CHECKED AND NAUSEA, labor precautions Flowsheet Date 05/10/2020 Power Score Blood Edema Fundus Height Fundus Units Glucose Ketones Leukocytes Nitrite Labor Signs Protein Cervic Dilation Cervic Effacement Cervic Station Type Weight in lbs Pre/Post Dialysis Refused Weight 167.376293636351 BP Diastolic BP Location Tested BP Systolic BP Type 91 141 Fetus Heart Rate Present Fetus Movement Comments Menstrual History Last Menstrual Date Menses Monthly On Bcp Conception Prior Menses Frequency Hcg Plus Date Menarche Onset Age 0108/02/2019 Genetic Screening And Infection History Question Response Note Mental Retardation/Autism false Patient's Age Will Be 35 Years Or Older At Estim ated Date of Delivery false Thalassemia (Mozambican, British, Mediterranean, Or Background): MCV < 80 false Neural Tube Defect (Meningomyelocele, Spina Bifi da, Or Anencephaly) false Congenital Heart Defect false Down Syndrome false Kevin-Sachs (eg, Gnosticist, Cajun, Setswana-Independence) f alse Dante Disease false Sickle Cell Disease Or Trait () false Hemophilia Or Other Blood Disorders false Muscular Dystrophy false Cystic Fibrosis false Richwood's Chorea false Intellectual Disability/Autism false If Yes, Was Person Tested For Fragile X? false Other Inherited Genetic Or Chromosomal Disorder false Maternal Metabolic Disorder (eg, Type 1 Diabetes , PKU) false Patient Or Baby's Father Had A Child With Defects Not Listed Above false Recurrent Loss, Or A Stillbirth false Medications (including Suppl ements, Vitamins, Herbs, OTC Drugs), Illicit/Recreational Drugs, Alcohol false If Yes, Agent(s) And Strength/Dosage false Any Other Genetic History false Live With Someone With TB Or Exposed To TB false Patient Or Partner Has History Of Genital Herpes false Rash Or Viral Illness Since Last Menstrual Perio d false History Of STD, Gonorrhea, Chlamydia, HPV, Syphi lis false Other Infection History false History of HIV false History of Hepatitis false Prior GBS-infected child false Hemoglobinopathy Or Carrier false Other Structural Defect false Recent Travel History Outside of Country false Delivery Information Delivery Date Delivery Type Labor Anesthesia Weeks Gestation Incision Type Labor Labor Length Hrs Delivered By Post Complications Tubal Sterilization Discharge Date Comments 0 Induce d 39.2 [email or web address] Discharge Information Feeding Method Contraceptive Method Maternal HG B and HCT Levels Ob Episode Information Episode Created Date Number of Fetuses Patient Bloodtype Patient rh Status Prepregnancy Weight lbs Domestic Partner Domestic Partner Phone Father Name Forming Department Supervisor Status 03/18/20 24 1 A Positive 171 Farhad Janet OPEN Fetus Data First Name Last Name Admitted to NICU Weight (g) Sex Living Outcome Pediatric Complications Fetus ID Race Codes Race Delivery Type [id number] Problems Problem Notes Problem Name Start Date End Date Resolution Snomed Code Not e Large for gestation age fetus [id number] 9lb 7 oz in 202 0 Mario Calculation Initial Mario Date Initial Exam Date Initial Exam Provider Initial Ultrasound Date Last Menstrual Period Date Ultra Sound Weeks Gestation 09/20/2024 02/12/2024 Lennie Dockery 02/12/2024 12/15/2023 9 Eighteen To Twenty Week Mario Update Ultra Sound Date Fundal Height At Umbil Quickening Date Ultra Sound Latest Weeks Gestation Final Mario Confirmed By Final Mario Confirmed Date Final Mario Date Ultra Sound Latest Days Gestation 0 0 Pre- Flowsheet Flowsheet Date 03/18/2024 Power Score Blood Edema Fundus Height Fundus Units Glucose Ketones Leukocytes Nitrite Labor Signs Protein Cervic Dilation Cervic Effacement Cervic Station none none trace Type Weight in lbs Pre/Post Dialysis Refused Weight 173.500212057341 BP Diastolic BP Location Tested BP Systolic BP Type 85 128 Fetus Heart Rate Present Fetus Movement A No Comments reviewed us, start routine p renatal care, hx possible heart palpitations, resolved f/u 4 weeks then anatomy at 20 weekshistory of vaginal delivery Flowsheet Date 04/10/2024 Power Score Blood Edema Fundus Height Fundus Units Glucose Ketones Leukocytes Nitrite Labor Signs Protein Cervic Dilation Cervic Effacement Cervic Station none Type Weight in lbs Pre/Post Dialysis Refused 174.04756203581 BP Diastolic BP Location Tested BP Systolic BP Type 81 129 Fetus Heart Rate Present A 155 Present Fetus Movement A Yes Comments doing well, +FM girl!!, educ ation and precautions plan 20 week anatomy scan Flowsheet Date 05/06/2024 Power Score Blood Edema Fundus Height Fundus Units Glucose Ketones Leukocytes Nitrite Labor Signs Protein Cervic Dilation Cervic Effacement Cervic Station Type Weight in lbs Pre/Post Dialysis Refused BP Diastolic BP Location Tested BP Systolic BP Type Fetus Heart Rate Present Fetus Movement Comments Flowsheet Date 05/06/2024 Power Score Blood Edema Fundus Height Fundus Units Glucose Ketones Leukocytes Nitrite Labor Signs Protein Cervic Dilation Cervic Effacement Cervic Station none Type Weight in lbs Pre/Post Dialysis Refused 182.549980178754 BP Diastolic BP Location Tested BP Systolic BP Type 83 135 Fetus Heart Rate Present Fetus Movement A Yes Comments Patient states that is havin g some arm and nerve pain. has flexeril rx, ok for refill if needed, precautions and education +FM anatomy complete f/u 4 weeks Flowsheet Date 06/05/2024 Power Score Blood Edema Fundus Height Fundus Units Glucose Ketones Leukocytes Nitrite Labor Signs Protein Cervic Dilation Cervic Effacement Cervic Station none Type Weight in lbs Pre/Post Dialysis Refused 190.840555500005 BP Diastolic BP Location Tested BP Systolic BP Type 88 125 Fetus Heart Rate Present A 150 Present Fetus Movement A Yes Comments doing well, ligament pain, b elt not really helping, education and precautions f/u 4 weeks with gct Flowsheet Date 06/26/2024 Power Score Blood Edema Fundus Height Fundus Units Glucose Ketones Leukocytes Nitrite Labor Signs Protein Cervic Dilation Cervic Effacement Cervic Station Type Weight in lbs Pre/Post Dialysis Refused BP Diastolic BP Location Tested BP Systolic BP Type Fetus Heart Rate Present Fetus Movement Comments Flowsheet Date 06/26/2024 Power Score Blood Edema Fundus Height Fundus Units Glucose Ketones Leukocytes Nitrite Labor Signs Protein Cervic Dilation Cervic Effacement Cervic Station none Type Weight in lbs Pre/Post Dialysis Refused 197.689113657598 BP Diastolic BP Location Tested BP Systolic BP Type 85 135 Fetus Heart Rate Present Fetus Movement A Yes Comments Patient is having heartburn and pelvic pain. ok for pepcid and tums efw 88%, vertex, ok for maternity support belt, precautions and education, f/u 2 weeks Flowsheet Date 07/24/2024 Power Score Blood Edema Fundus Height Fundus Units Glucose Ketones Leukocytes Nitrite Labor Signs Protein Cervic Dilation Cervic Effacement Cervic Station none 33 cm Type Weight in lbs Pre/Post Dialysis Refused 198.955996127508 BP Diastolic BP Location Tested BP Systolic BP Type 83 124 Fetus Heart Rate Present A 147 Present Fetus Movement A Yes Comments Patient is having pressure a nd BH contraction, feeling better had GI virus, +FM hx LGA plan 36 week us precautions and education call for preadmit Flowsheet Date 08/07/2024 Power Score Blood Edema Fundus Height Fundus Units Glucose Ketones Leukocytes Nitrite Labor Signs Protein Cervic Dilation Cervic Effacement Cervic Station neg trace Type Weight in lbs Pre/Post Dialysis Refused Weight 202.397463233572 BP Diastolic BP Location Tested BP Systolic BP Type 78 121 Fetus Heart Rate Present Fetus Movement A Yes Comments Patient states that is havin g some swelling. plan gbs in 2 weeks, call for preadmit, +FM, education and precautions Flowsheet Date 08/21/2024 Power Score Blood Edema Fundus Height Fundus Units Glucose Ketones Leukocytes Nitrite Labor Signs Protein Cervic Dilation Cervic Effacement Cervic Station Type Weight in lbs Pre/Post Dialysis Refused BP Diastolic BP Location Tested BP Systolic BP Type Fetus Heart Rate Present Fetus Movement Comments Flowsheet Date 08/21/2024 Power Score Blood Edema Fundus Height Fundus Units Glucose Ketones Leukocytes Nitrite Labor Signs Protein Cervic Dilation Cervic Effacement Cervic Station 3cm 60% -3 Type Weight in lbs Pre/Post Dialysis Refused 204.809508413468 BP Diastolic BP Location Tested BP Systolic BP Type 82 129 Fetus Heart Rate Present Fetus Movement A Yes Comments Patient is having cramping . +FM, precautions and education LGA at 96%, plan 39 week IOL , f/u one week gbs collected Flowsheet Date 08/28/2024 Power Score Blood Edema Fundus Height Fundus Units Glucose Ketones Leukocytes Nitrite Labor Signs Protein Cervic Dilation Cervic Effacement Cervic Station neg trace 38 cm 3cm -3 Type Weight in lbs Pre/Post Dialysis Refused 206.445852041875 BP Diastolic BP Location Tested BP Systolic BP Type 84 133 Fetus Heart Rate Present A 145 Fetus Movement A Yes Comments Patient is having some contr actions and swelling. +FM, precautions and eduction, IOL scheduled f/u one week Menstrual History Last Menstrual Date Menses Monthly On Bcp Conception Prior Menses Frequency Hcg Plus Date Menarche Onset Age 0612/15/2023 true Delivery Information Delivery Date Delivery Type Labor Anesthesia Weeks Gestation Incision Type Labor Labor Length Hrs Delivered By Post Complications Tubal Sterilization Discharge Date Comments Discharge Information Feeding Method Contraceptive Method Maternal HG B and HCT Levels
--- OUTSIDE RECORDS SUMMARY | 2024-09-03 18:54 | XMS_ITS | Patient Health Summary ---
Author Organization [facility] Address [address] [place] [address] Care Team Providers Care Lace And Textiles Restorer Name Role Phone Unavailable Primary Care Provider Unavailabl e Note from [facility],non-owned Affiliates and Associated Physician Practices is amultiple site organization consisting of ambulatory clinics and hospital sitesin [place], [place], [place] and [place]. This disclosure is being madepursuant to the Care Everywhere program and may not contain all information available regarding this patient. Last updated 18.[facility] Allergies * Amoxicillin(Itching) Medications * Be aware that medications may not be up to date on this document. Alwaysverify current medications with the patient. * benzonatate (TESSALON) 200 MG capsule(Started 07/07/2019) Take 1 capsule by mouth 3 times daily as needed for Cough Immunizations * MENINGOCOCCAL CONJUGATE (MCV4P)(Given 05/04/2016) * TDAP (7yrs+)(Given 05/04/2016) Social History Tobacco Use Types Packs/Day Years Used Date Smoking Tobacco: Never Smokeless Tobacco: Never Sex and Gender Information Value Date Recorded Sex Assigned at Not on file Gender Identity Not on file Sexual Orientation Not on file Last Filed Vital Signs Vital Sign Reading Time Taken Comments Blood Pressure 108/70 07/07/2019 10:01 AM PRODUCT ASSEMBLER Pulse 103 07/07/2019 10:01 AM PRODUCT ASSEMBLER Temperature 38.5 C (101.3 F) 07/07/2019 10:01 AM PRODUCT ASSEMBLER Respiratory Rate 16 07/07/2019 10:01 AM PRODUCT ASSEMBLER Oxygen Saturation 97% 07/07/2019 10:01 AM PRODUCT ASSEMBLER Inhaled Oxygen Concentration - - Weight 68.9 kg (152 lb) 07/07/2019 10:01 AM PRODUCT ASSEMBLER Height 166.4 cm (5' 5.5 ) 07/07/2019 10:01 AM CS T Body Mass Index 24.91 07/07/2019 10:01 AM PRODUCT ASSEMBLER Procedures * INFLUENZA A+B - POINT OF CARE (AMB)(Performed 07/07/2019) Performed for Lower respiratory infection * STREP A SCREEN - POINT OF CARE (AMB) STL(Performed 07/07/2019) Performed for Lower respiratory infection * SKIN TEST PPD - POINT OF CARE(Performed 12/25/2018) Performed for PPD screening test Results * INFLUENZA A+B - POINT OF CARE (AMB) (07/07/2019 10:08 AM PRODUCT ASSEMBLER) Influenza A Antigen Rapid Negative Negative Influenza B Antigen Rapid Negative Negative Influenza Internal Control positive NEGATIVE - POSITIVE Influenza Lot Number [id number] Influenza Expiration Date Other NASOPHARYNGEAL SWAB / Unknown 07/07/2019 10:08 AM PRODUCT ASSEMBLER Jevon Brice APRN-STAMP COLLECTOR LAB - POINT OF CA RE ORDERABLES * STREP A SCREEN - POINT OF CARE (AMB) STL (07/07/2019 10:06 AM PRODUCT ASSEMBLER) Strep A Rapid POCT Negative Negative Strep A Internal Control Present Lot # [id number] Expiration Date 12 12 2020 Throat ENTIRE THROAT (SURFACE REGION OF NECK) / Unknown 07/07/2019 10:06 AM PRODUCT ASSEMBLER Jevon Brice APRN-STAMP COLLECTOR LAB - POINT OF CA RE ORDERABLES * SKIN TEST PPD - POINT OF CARE (12/25/2018) PPD neg Comment:jewel Jeong Other MISCELLANEOUS SAMPLE S / Unknown 12/25/2018 Jevon Brice APRN-STAMP COLLECTOR LAB - POINT OF CA RE ORDERABLES
[2024-09-03 19:26] VITALS: BP 131/81; PULSE 93
[2024-09-03 19:27] LABS: Add Urine Microscopic? YES; Appearance Urine Cloudy (Clear); Bacteria Urine 1+ /hpf; Bilirubin Urine Negative (Negative); Blood Urine Negative (Negative); Color Urine Yellow (Yellow); Glucose Urine UA Negative (Negative); Ketones Urine Negative (Negative); Leukocyte Esterase Ur 3+ LEU/UL (Negative); Need Manual Microscopic Reviewed; Nitrate Urine Negative (Negative); Protein Urine Negative (Negative); RBC Urine 0-2 /hpf (0-2); Specific Grav Ur 1.007 (1.001-1.035); Squamous Epithelial Cell Urine Few /hpf (Few); Urobilinogen Urine 0.2 mg/dL (<2.0)
[2024-09-03 19:51] VITALS: BMI 34.8
--- NOTE | 2024-09-03 19:51 | OBADM ---
This patient, Judith Gonzales, admitted to the OB room Labor/Delivery/Recovery 103 for observation. Patient/family oriented to hospital policies and general routines including ID bracelet, bed and alarms, visiting hours, pain management, procedures, bathroom and other care routines, personal items, smoking policy, room service/diet, and visiting hours. Patient/Family are encouraged to report perceived risks to care and to ask questions if they do not understand what they are told or what they should do.
--- NOTE | 2024-09-05 17:44 | PM.OBTRLD ---
OB - Triage/Final Diagnosis Visit Information Date of evaluation: 09/03/24 Reason for evaluation: threatened labor Comments/Additional reasons for admission: I have assessed the risk for this patient, Judith Gonzales, and determined that she would benefit from observation care. Evaluation Laboratory results: Laboratory Tests 09/03/24 18:57 Urine Color Yellow Urine Appearance Cloudy H Urine pH 7.0 Ur Specific [place] 1.007 Urine Protein Negative Urine Glucose (UA) Negative Urine Ketones Negative Ur Blood (Man) Negative Urine Nitrate Negative Urine Bilirubin Negative Urine Urobilinogen 0.2 Add Ur Microanalysis Reviewed Leukocyte Esterase Rfl 3+ H Urine RBC 0-2 Urine WBC 11-20 H Ur Squamous Epith Cells Few Urine Bacteria 1+ H Urine Casts 3-5
--- OUTSIDE RECORDS SUMMARY | 2024-09-07 07:08 | XMS_ITS | Referral Summary ---
Author Organization [facility] [place] [address] [facility] lto Address [address] [facility] [address] Care Team Providers Care Research Professor Of Biostatistics Name Role Phone David Lindquist MD Primary Care Provider [phone] No, Physician Unavailable Lennie Dockery VOYAGE MANAGEMENT SYSTEM OPERATOR Unavailable [phone] Allergies Active Allergy Reactions Criticality Noted Date [...] (03/26/2024): & pubis pain - referred to [facility] 03/17 Annual physical exam 06/19/2023 Assessment & Plan (06/19/2023 11:30 AM PLASTER MODEL AND MOLD MAKER): Discussed lifestyle modifications, diet and exercise. Routine blood work ordered/reviewed today. Yearly vision and dental examinations. Tachycardia 09/06/2022 Essential hypertension 08/06/2022 Assessment & Plan (06/19/2023 11:32 AM PLASTER MODEL AND MOLD MAKER): At goal at this time [place] current [...] activity. Assessment & Plan (09/06/2022 10:29 AM PLASTER MODEL AND MOLD MAKER): BP Readings from Last 3 Encounters: 09/06/22 [...] activity. Assessment & Plan (08/06/2022 12:15 PM PLASTER MODEL AND MOLD MAKER): BP Readings from Last 3 Encounters: 08/06/22 [...] 05/23/2022 Assessment & Plan (05/23/2022 9:53 AM PLASTER MODEL AND MOLD MAKER): No improvement with claritin or ibuprofen will [...] Plan of Treatment Not on file Insurance [facility] [employer] Address: [facility] [id number] [phone] [facility] [employer] [employer] Address: [address] [place] [address] [facility] Care Teams Research Professor Of Biostatistics Relationship Specialty Start Date End Date David Lindquist MD PCP - General Family Medicine 05/23/22 No, Physician 05/23/22 Lennie Dockery NP [phone] (work) Nurse Practitioner Obstetrics and Gynecology 09/06/22
--- OUTSIDE RECORDS SUMMARY | 2024-09-07 07:08 | XMS_ITS | Clinical Summary ---
Author Organization [facility] [place] [address] [facility] lto Address [address] [facility] [place] [address] Care Team Providers Care Plasterer Journeyman Name Role Phone David Lindquist MD Primary Care Provider [phone] No, Physician Unavailable Lennie Dockery MOHS SURGEON Unavailable [phone] Allergies Active Allergy Reactions Criticality Noted Date [...] (03/26/2024): & pubis pain - referred to [facility] 03/17 Annual physical exam 06/19/2023 Assessment & Plan (06/19/2023 11:30 AM BPM ANALYST): Discussed lifestyle modifications, diet and exercise. Routine blood work ordered/reviewed today. Yearly vision and dental examinations. Tachycardia 09/06/2022 Essential hypertension 08/06/2022 Assessment & Plan (06/19/2023 11:32 AM BPM ANALYST): At goal at this time [place] current [...] activity. Assessment & Plan (09/06/2022 10:29 AM BPM ANALYST): BP Readings from Last 3 Encounters: 09/06/22 [...] activity. Assessment & Plan (08/06/2022 12:15 PM BPM ANALYST): BP Readings from Last 3 Encounters: 08/06/22 [...] 05/23/2022 Assessment & Plan (05/23/2022 9:53 AM BPM ANALYST): No improvement with claritin or ibuprofen will [...] patient's age to complete this topic [facility] Care Teams Plasterer Journeyman Relationship Specialty Start Date End Date David Lindquist MD PCP - General Family Medicine 05/23/22 No, Physician 05/23/22 Lennie Dockery NP Nurse Practitioner Obstetrics and Gynecology 09/06/22
--- OUTSIDE RECORDS SUMMARY | 2024-09-07 07:08 | XMS_ITS | Patient Health Summary ---
Author Organization [facility] Address [address] [place] [address] Care Team Providers Care Arborist Climber Name Role Phone Unavailable Primary Care Provider Unavailabl e Note from [facility],non-owned Affiliates and Associated Physician Practices is amultiple site organization consisting of ambulatory clinics and hospital sitesin [place], [place], [place] and [place]. This disclosure is being madepursuant to the Care Everywhere program and may not contain all information available regarding this patient. Last updated 18.[facility] Allergies * Amoxicillin(Itching) Medications * Be [...] Comments Blood Pressure 108/70 07/07/2019 10:01 AM SENIOR PHP DEVELOPER Pulse 103 07/07/2019 10:01 AM SENIOR PHP DEVELOPER Temperature 38.5 C (101.3 F) 07/07/2019 10:01 AM SENIOR PHP DEVELOPER Respiratory Rate 16 07/07/2019 10:01 AM SENIOR PHP DEVELOPER Oxygen Saturation 97% 07/07/2019 10:01 AM SENIOR PHP DEVELOPER Inhaled Oxygen Concentration - - Weight 68.9 kg (152 lb) 07/07/2019 10:01 AM SENIOR PHP DEVELOPER Height 166.4 cm (5' 5.5 ) 07/07/2019 10:01 AM CS T Body Mass Index 24.91 07/07/2019 10:01 AM SENIOR PHP DEVELOPER Procedures * INFLUENZA A+B - POINT OF CARE (AMB)(Performed 07/07/2019) Performed for Lower respiratory infection * STREP A SCREEN - POINT OF CARE (AMB) STL(Performed 07/07/2019) Performed for Lower respiratory infection * SKIN TEST PPD - POINT OF CARE(Performed 12/25/2018) Performed for PPD screening test Results * INFLUENZA A+B - POINT OF CARE (AMB) (07/07/2019 10:08 AM SENIOR PHP DEVELOPER) Influenza A Antigen Rapid Negative Negative Influenza B Antigen Rapid Negative Negative Influenza Internal Control positive NEGATIVE - POSITIVE Influenza Lot Number [id number] Influenza Expiration Date Other NASOPHARYNGEAL SWAB / Unknown 07/07/2019 10:08 AM SENIOR PHP DEVELOPER Jevon Brice APRN-STRATEGIC DEBRIEFING OFFICER LAB - POINT OF CA RE ORDERABLES * STREP A SCREEN - POINT OF CARE (AMB) STL (07/07/2019 10:06 AM SENIOR PHP DEVELOPER) Strep A Rapid POCT Negative Negative Strep A Internal Control Present Lot # [id number] Expiration Date 12 12 2020 Throat ENTIRE THROAT (SURFACE REGION OF NECK) / Unknown 07/07/2019 10:06 AM SENIOR PHP DEVELOPER Jevon Brice APRN-STRATEGIC DEBRIEFING OFFICER LAB - POINT OF CA RE ORDERABLES * SKIN TEST PPD - POINT OF CARE (12/25/2018) PPD neg Comment:jewel Jeong Other MISCELLANEOUS SAMPLE S / Unknown 12/25/2018 Jevon Brice APRN-STRATEGIC DEBRIEFING OFFICER LAB - POINT OF CA RE ORDERABLES
--- OUTSIDE RECORDS SUMMARY | 2024-09-07 07:08 | XMS_ITS | Referral Summary ---
Author Organization [facility] Address [address] [place] [address] Care Team Providers Care Patient Relations Director Name Role Phone Unavailable Primary Care Provider Unavailabl e Source Comments [facility],non-owned Affiliates and Associated Physician Practices is amultiple site organization consisting of ambulatory clinics and hospital sitesin [place], [place], [place] and [place]. This disclosure is being madepursuant to the Care Everywhere program and may not contain all information available regarding this patient. Last updated 18.[facility] Allergies Active Allergy Reactions Criticality [...] Comments Blood Pressure 108/70 07/07/2019 10:01 AM BAG INSPECTOR Pulse 103 07/07/2019 10:01 AM BAG INSPECTOR Temperature 38.5 C (101.3 F) 07/07/2019 10:01 AM BAG INSPECTOR Respiratory Rate 16 07/07/2019 10:01 AM BAG INSPECTOR Oxygen Saturation 97% 07/07/2019 10:01 AM BAG INSPECTOR Inhaled Oxygen Concentration - - Weight 68.9 kg (152 lb) 07/07/2019 10:01 AM BAG INSPECTOR Height 166.4 cm (5' 5.5 ) 07/07/2019 10:01 AM CS T Body Mass Index 24.91 07/07/2019 10:01 AM BAG INSPECTOR Plan of Treatment Not on file Administered Medications
--- OUTSIDE RECORDS SUMMARY | 2024-09-07 07:08 | XMS_ITS | Clinical Summary ---
Author Organization [facility] Address [address] [place] [address] Care Team Providers Care University Controller Name Role Phone Unavailable Primary Care Provider Unavailabl e Source Comments [facility],non-owned Affiliates and Associated Physician Practices is amultiple site organization consisting of ambulatory clinics and hospital sitesin [place], [place], [place] and [place]. This disclosure is being madepursuant to the Care Everywhere program and may not contain all information available regarding this patient. Last updated 18.[facility] Allergies Active Allergy Reactions Criticality Noted Date [...] Comments Blood Pressure 108/70 07/07/2019 10:01 AM PATENT LEATHER SORTER Pulse 103 07/07/2019 10:01 AM PATENT LEATHER SORTER Temperature 38.5 C (101.3 F) 07/07/2019 10:01 AM PATENT LEATHER SORTER Respiratory Rate 16 07/07/2019 10:01 AM PATENT LEATHER SORTER Oxygen Saturation 97% 07/07/2019 10:01 AM PATENT LEATHER SORTER Inhaled Oxygen Concentration - - Weight 68.9 kg (152 lb) 07/07/2019 10:01 AM PATENT LEATHER SORTER Height 166.4 cm (5' 5.5 ) 07/07/2019 10:01 AM CS T Body Mass Index 24.91 07/07/2019 10:01 AM PATENT LEATHER SORTER Plan of Treatment Health Maintenance Due Date [...]
== END 2024-09-03 20:05 | disposition home or self-care (01) ==
PROVIDERS: Advanced Practice Midwife; Admitting Provider Obstetrics & Gynecology; PCP Family Medicine; Visit Provider Obstetrics & Gynecology
DX: O47.1 False labor at or after 37 completed weeks of gestation (principal); Z3A.37 37 weeks gestation of pregnancy
CPT/HCPCS: 81001; 87086; G0378; G0379

== ENCOUNTER 2024-09-06 21:09 | Outpatient (CLI) | payer OTHER, SELFPAY ==
--- OUTSIDE RECORDS SUMMARY | 2024-09-06 21:17 | XMS_ITS | Referral Summary ---
Author Organization [facility] Address [address] [place] [address] Care Team Providers Care Water Resource Consultant Name Role Phone Unavailable Primary Care Provider Unavailabl e Source Comments [facility],non-owned Affiliates and Associated Physician Practices is amultiple site organization consisting of ambulatory clinics and hospital sitesin [place], [place], [place] and [place]. This disclosure is being madepursuant to the Care Everywhere program and may not contain all information available regarding this patient. Last updated 18.[facility] Allergies Active Allergy Reactions Criticality Noted Date [...] Comments Blood Pressure 108/70 07/07/2019 10:01 AM ARMATURE WINDER Pulse 103 07/07/2019 10:01 AM ARMATURE WINDER Temperature 38.5 C (101.3 F) 07/07/2019 10:01 AM ARMATURE WINDER Respiratory Rate 16 07/07/2019 10:01 AM ARMATURE WINDER Oxygen Saturation 97% 07/07/2019 10:01 AM ARMATURE WINDER Inhaled Oxygen Concentration - - Weight 68.9 kg (152 lb) 07/07/2019 10:01 AM ARMATURE WINDER Height 166.4 cm (5' 5.5 ) 07/07/2019 10:01 AM CS T Body Mass Index 24.91 07/07/2019 10:01 AM ARMATURE WINDER Plan of Treatment Not on file Administered Medications
--- OUTSIDE RECORDS SUMMARY | 2024-09-06 21:17 | XMS_ITS | Data Portability ---
Author Organization [facility] Address [address] [place] [address] [place] [address] Care Team Providers Care Vegetable Trimmer Name Role Phone JOELLEN GAMBLE Primary Care Provider [phone] Assessment Encounter Date Assessment Date Assessment LastModified by Organization Details LastModified Time 08/07/2024 08/07/2024 Patient is _33__weeks . Discussed plan. Not available 08/07/2024 12:22:39 08/21/2024 08/21/2024 Patient is _35__weeks . Discussed plan. [email or web address] Not available 08/21/2024 15:26:55 08/28/2024 08/28/2024 Patient is ___weeks . Discussed plan. Not available 08/30/2024 12:44:02 09/04/2024 09/04/2024 Patient is __37_weeks . Discussed plan. Not available 09/04/2024 14:32:07 Plan of Treatment Reminders Order Date Submit Date Provider Last Modified By Organization Details Last Modified Time Details Appointments OB ROUTINE 2024 04:00P Mya Dockery CNM Not available Not available Not available INDUCTION 2024 05:00A Mya Dockery CNM Not available Not available Not available Lab None recorded. Referral None recorded. Procedures None recorded. Surgeries None recorded. Imaging US, obstetric , follow-up 2024 025 [email or web address] [facility] [address], [place], [address], 08/22/2024 11:03:17 Medication Orders None recorded. Patient TargetsNo targets recorded. Patient InstructionsNo instructions recorded. Reason for Referral None Reported. Results Created Date Observation Date Name Description Value Unit Range Abnormal Flag Note LastModifiedBy Organization Detail LastModifiedTime 08/21/19 25 08/21/2024 CULTU RE: GROUP B [...] t Abnor mal: No Resul ting Lab: [facility] [address] [facility] [address] Tel: CULTU RE ----- ----- ----- --- No Group B strep isola darren at 2 days (jacobo ctive broth enhan cemen t) Not Available [facility] (Lab) [address], [place], [address], 08/24/2024 15:32:52 08/21/19 25 08/21/2024 , obste tric, follo w-up No observ ation record ed. [facility] [address], [place], [address], 08/21/2024 18:34:14 08/21/19 25 08/21/2024 US, obste tric, follo w-up No observ ation record ed. [place] [id number] [address], [place], [address], 08/22/2024 19:45:06 Result Notes None recorded. Problems Name Problem SNOMED Code Status Onset Date Resolution Date Notes Provider Name and Address Organization Details Recorded Time Choroid plexus cyst 324678924 Completed 01/14/2020 Resolved Suzie Muñoz null, [facility] 0 16:02:59 Hip pain 52958513 Completed & pubis pain - referred to [facility] 03/17 Suzie nuñez, [facility] 0 16:02:59 Pregnanc y 59208285 Completed 201905/11/2020 Suzie nuñez [facility] 4 18:13:58 Pregnanc y 48430796 Active 2023 Suzie Muñoz savannah [facility] 4 18:13:58 Large for gestatio n age fetus 692340853 Active 9lb 7 oz in 2019 Lennie Dockery CNM [address], [place], [address], [facility] 4 18:28:59 Pregnanc y detectio n examinat ion Completed 201910/19/2020 Encounte r for pregnanc y test, result positive ;Recorde d Elsewher e: No Locat ion: [facility] S ource: EHR Boot Liner Maker jacob: N Practi ce ID: [id number] Curtis lable Time: 03:00:00 PM Suzie nuñez [facility] [address] 14:08:[address] Concept Completed 201910/19/2020 Encntr for cfo controller exam (general ) (routine ) w/o abn findings ;Recorde d Elsewher e: No Locat ion: [facility] S ource: EHR Boot Liner Maker jacob: N Practi ce ID: [id number] Curtis lable Time: 03:00:00 PM Suzie Muñoz savannah [facility] 1 14:08:47 Problem Notes None recorded. Procedures Surgical History Date Name Laterality Status Provider Name and Address Organization Details Recorded Time 4 Date of Last Pap Smear completed Suzie Muñoz [facility] 02/12/2024 15:07:18 2 extraction of wisdom tooth completed Suzie Muñoz [facility] 07/27/2022 16:22:08 Imaging Results Imaging Date Name Status LastModified by Organiz ation Details LastModified Time 08/21/2024 US, obstetric, follow-up completed [facility] [address], [place], [address], 08/21/2024 18:34:14 08/21/2024 US, obstetric, follow-up completed [address], [place], [address], 08/22/2024 19:45:06 Procedure Notes None recorded. Medical Equipment None Reported. Allergies Allergen ID Allergen Name Allergen Category Reaction Reaction Severity Criticality Documentation Date Start Date Code Code System Note Provider Name and Address Organization Details Recorded Time 210 amoxicill in medicatio n Not available Not available Not available 10/29/2019 723 RxNorm Aide Greg nuñez, [facility] 0 16:37:58 Medications Name Sig Start [...] Not Available cyclobenzap rine 5 mg tablet 1-2 tablets every 8 hours for pain 2024 active Not Available Not Available Not Avai lable levonorgest rel 0.15 mg-ethinyl estradiol 30 mcg tablets,3 mos pack(91) 10/28 completed Not Available Not Available Not Available nitrofurant oin monohydrate /macrocryst als 100 mg capsule 10/19 completed Not Available Not Available Not Available calcium 10/19 completed Not Available Not Available Not Available 05/16 completed Not Available Not Available Not Available [place] 3 05/16 completed Not Available Not Available [...] Updated DateTime 08/07/2024 166.37 cm 33.1 kg/m2 46022.66 g 121 mm[Hg] 78 mm[Hg] [facility] 12:21:07 Date Recorded Body weight Systolic blood pressure Diastolic blood pressure Provider Name and Address Organization Details Last Updated DateTime 08/21/2024 54828.8434 8 g 129 mm[Hg] 82 mm[Hg] [facility] 08/21/2024 15:13:22 Date Recorded Body weight Body mass index (BMI) Body height Systolic blood pressure Diastolic blood pressure Provider Name and Address Organization Details Last Updated DateTime 08/28/2024 82041.02 822 g 33.8 kg/m2 166.37 cm 133 mm[Hg] 84 mm[Hg] [facility] 5 16:50:08 Date Recorded Body height Body mass index (BMI) Body weight Systolic blood pressure Diastolic blood pressure Provider Name and Address Organization Details Last Updated DateTime 09/04/2024 166.37 cm 34.1 kg/m2 17194.21 g 135 mm[Hg] 81 mm[Hg] [facility] 14:16:04 Social History Question Answer Notes LastModified by Organizat ion Details LastModified Time Tobacco Smoking Status Never Smoker [facility] 10/26/2022 11:53:53 Do You Have An Advance Directive? No [email or web address] Information not available 05/16/2021 What Is Your Level Of Alcohol Consumption? None Information not available 02/12/2024 If You Are , What Was Your Level Of Alcohol Consumption Prior To ? Occasional [email or web address] Information not available 10/26/2022 Are You Blind Or Do You Have Difficulty Seeing? No [email or web address] Information not available 10/19/2020 What Is Your Level Of Caffeine Consumption? Occasional Information not available 10/19/2020 How Much Tobacco Do You Chew? None [email or web address] Information not available 05/16/2021 In The 14 Days Before Symptom Onset, Have You Had Close Contact With A Laboratory-confir med COVID-19 While That Case Was Ill? No [email or web address] Information not available 10/19/2020 In The 14 Days Before Symptom Onset, Have You Had Close Contact With A Person Who Is Under Investigation For COVID-19 While That Person Was Ill? No [email or web address] Information not available 05/16/2021 Have You Been To An Area Known To Be High Risk For COVID-19? No [email or web address] Information not available 10/19/2020 Are You Deaf Or Do You Have Serious Difficulty Hearing? No [email or web address] Information not available 10/19/2020 What Type Of Diet Are You Following? REGULAR [email or web address] Information not available 10/19/2020 Do You Or Have You Ever Used E-cigarettes Or Vape? Never Used Electronic Cigarettes Information not available 10/26/2022 What Is The Highest Grade Or Level Of School You Have Completed Or The Highest Degree You Have Received? RB50668-9 [email or web address] Information not available 05/16/2021 Are There Any Guns Present In Your Home? No Information not available 05/16/2021 What Was The Date Of Your Most Recent Tobacco Screening? 08/28/2024 [email or web address] Information not available 08/28/2024 Have You Ever Been Counseled For Unhealthy Alcohol Use? No [email or web address] Information not available 10/26/2022 Do You Use Protection During Sex? No [email or web address] Information not available 05/16/2021 Do You Use Your Seat Belt Or Car Seat Routinely? Yes [email or web address] Information not available 10/19/2020 Do You Have Smoke And Carbon Monoxide Detectors In Your Home? Yes [email or web address] Information not available 10/19/2020 Do You Or Have You Ever Used Smokeless Tobacco? Never Used Smokeless Tobacco [email or web address] Information not available 10/26/2022 How Much Tobacco Do You Smoke? No [email or web address] Information not available 02/12/2020 Do You Feel Stressed (tense, Restless, Nervous, Or Anxious, Or Unable To Sleep At Night)? [id number] [email or web address] Information not available 10/19/2020 Do You Use Any Illicit Or Recreational Drugs? No Information not available 10/19/2020 Do You Use Sunscreen Routinely? Yes [email or web address] Information not available 10/19/2020 Has Tobacco Cessation Counseling Been Provided? No [email or web address] Information not available 10/26/2022 Have You Used IV Drugs? No [email or web address] Information not available 05/16/2021 Do You Or Have You Ever Used Any Other Forms Of Tobacco Or Nicotine? No [email or web address] Information not available 10/26/2022 Sex: Unknown Functional Status Question Answer Note LastModified by Organizat ion Details LastModified Time Do you have difficulty walking or climbing stairs? No [email or web address] Information not available 10/26/2022 Are you able to walk? YESWOREST [email or web address] Information not available 10/19/2020 Are you able to care for yourself? Yes Information not available 10/26/2022 Do you have difficulty dressing or bathing? No [email or web address] Information not available 10/26/2022 What is your exercise level? Occasional [email or web address] Information not available 11/27/2019 Mental Status None recorded. Family History Relationship Description Onset Age of this Age Resolved Age Notes LastModified by Organization Details LastModified Time Maternal Grandfather Hypertensive disorder [email or web address] Not available 2019 16:39:26 Father No current problems or disability [email or web address] Not available 09/04 14:05:53 Mother No current problems or disability [email or web address] Not available 09/04 14:05:53 Notes:Maternal grandfather: Hypertension Medical History Condition Response Allergies (Food, seasonal, environmental ) N Other N Drug/Latex Allergies/Reactions N Blood Transfusion N Breast Cancer N Dermatologic Disorders N Lung Disease N Defects or Inherited Disease N Breast Problem N Gestational Diabetes N Hematologic disorders N Anesthesia Complications N History of STI N Deep Vein Thrombosis N Polycystic ovary syndrome N Anxiety Disorder N Autoimmune disease N Arthritis N Polyps N Infertility N Acid Reflux (GERD) N History of abnormal pap N Cancer N Varicosities N Stroke N Neurologic/Epilepsy N Endometriosis N High Cholesterol N Fibromyalgia N Headaches N Kidney Disease N Heart Problems N Thyroid Problems N Kidney or Bladder Problems N GI Problems N Eating Disorder [...] Code Diagnosis Note 1096 Alberto Perez MD [facility] [address] [address] 10/29/2019 16:00:03 10/29/2019 17:24:09 Routine care 669900660 Z34.01 4442 Lennie Dockery [facility] [address] [address] 11/27/2019 14:58:29 11/27/2019 16:04:54 Routine care 357295992 Z34.92 [id number] [facility] [address] [place] [address] 12/17/2019 14:18:54 01/06/2020 11:21:36 Routine care 939240840 Z34.92 6561 Wilma Short [facility] [address] [address] 12/17/2019 14:19:26 12/17/2019 17:40:30 screening for malformation 086483820 Z36.3 [id number] [facility] [address] [address] 01/14/2020 13:51:51 01/14/2020 14:51:21 Routine care 555256816 Z34.92 [id number] [facility] [address],[place] [address] 01/14/2020 13:52:36 01/14/2020 14:50:48 condition affecting obstetrical care of mother 630714189 O35.8XX0 Z3A.23 [id number] Lennie Dockery [facility] [address] [address] 02/12/2020 14:16:13 02/12/2020 15:50:05 Routine care 724443256 Z34.92 [address] [address] 02/23/2020 12:16:44 02/23/2020 14:36:50 Routine care 587059607 Z34.92 [id number] [facility] [address] [address] 03/11/2020 16:12:31 03/11/2020 17:20:59 Routine care 518237487 Z34.92 [id number] [facility] [address] [place] [address] 03/25/2020 16:01:10 03/27/2020 22:07:56 Routine care 588251010 Z34.92 [id number] [facility] [address] [place] [address] 04/08/2020 16:16:54 04/08/2020 16:48:12 Routine care 092206830 Z34.92 [id number] [facility] [address] [place] [address] 04/15/2020 15:00:52 04/15/2020 15:44:45 Routine care 756355073 Z34.92 30384 [facility] [address] [place] [address] 04/22/2020 14:42:01 04/22/2020 15:35:28 Routine care 540507082 Z34.92 [id number] Lennie Dockery [facility] [address],[place] [address] 04/29/2020 15:03:58 04/29/2020 16:29:46 Routine care 170891565 Z34.92 [id number] Lennie Dockery [facility] [address],[place] [address] 05/10/2020 16:10:02 05/10/2020 17:47:11 Mixed anxiety and depressive disorder 337480954 F41.8 00448 Lennie Dockery [facility] [address],[place] [address] 05/17/2020 16:50:57 05/19/2020 16:26:53 Elevated blood-pressure reading without diagnosis of hypertension 205833713 R03.0 [id number] Lennie Dockery [facility] [address],[place] [address] 06/03/2020 12:18:42 06/03/2020 16:34:36 care 825527620 Z39.2 Contracept ion care management 396045292 Z30.9 [id number] Lennie Dockery [facility] [address],[place] [address] 06/22/2020 17:21:23 06/23/2020 18:45:35 care 977531925 Z39.2 revision of repair, no charge [id number] Lennie Dockery [facility] [address],[place] [address] 10/19/2020 13:54:50 10/19/2020 16:03:24 Gynecologic examination 24528034 Z01.419 70017 Lennie Dockery [facility] [address],[place] [address] 05/16/2021 12:24:03 05/16/2021 14:23:02 Surveillance of oral contraception 132377033 Z30.41 Contracept ion care management 129468301 Z30.9 [id number] Lennie Dockery [facility] [address],[place] [address] 07/27/2022 16:06:56 07/30/2022 14:38:51 Gynecologic examination 49322536 Z01.419 recheck bp at med check in 3 months Pain in pelvis 10691704 R10.2 refer to PT consider PCP for imaging [id number] Lennie Dockery [facility] [address],[place] [address] 10/26/2022 11:53:39 10/26/2022 12:27:26 Contraception care management 192606411 Z30.9 continue norethindr one if desires, can consider IUD (mirena) discussed call and will place on cycle if decides Elevated blood-pressure reading without diagnosis of hypertension 940786475 R03.0 cont to monitor see pcp for followup [id number] [facility] [address] [address] 02/12/2024 13:57:44 02/12/2024 14:26:18 [id number] Lennie Dockery [facility] [address] [address] 02/12/2024 13:58:16 02/12/2024 15:28:15 Amenorrhea 36705253 N91.2 Venereal d isease screening 451920078 Z11.3 [id number] [facility] [address] [address] 03/18/2024 15:46:44 03/18/2024 17:36:21 screening 931842520 Z36.82 Z3A.13 [id number] Lennie Dockery [facility] [address],[place] [address] 03/18/2024 15:48:01 03/19/2024 11:22:08 Routine care 384873685 Z34.92 Gestation period, 13 weeks 26605757 Z3A.13 [id number] [facility] [address],[place] [address] 04/10/2024 11:30:07 04/10/2024 13:49:37 Routine care 321332015 Z34.92 [id number] [facility] [address],[place] [address] 05/06/2024 14:02:30 05/06/2024 15:06:26 screening for malformation 254710780 Z36.3 Z3A.20 [id number] [facility] [address],[place] [address] 05/06/2024 14:03:06 05/06/2024 15:36:46 Routine care 153016754 Z34.92 [id number] [facility] [address] [address] 06/05/2024 12:30:49 06/05/2024 13:52:18 Gestation period, 24 weeks 247807134 Z3A.24 [id number] [facility] [address] [address] 06/26/2024 14:05:58 06/26/2024 16:08:59 Large for gestation age fetus 800017502 O36.62X0 Z3A.27 110551 [facility] [address] [address] 06/26/2024 14:09:55 06/26/2024 15:25:58 Gestation period, 27 weeks 17891869 Z3A.27 550206 [facility] [address] [address] 07/24/2024 11:49:49 07/24/2024 13:46:14 Gestation period, 31 weeks 30844855 Z3A.31 275432 [facility] [address] [address] 08/07/2024 12:01:15 08/07/2024 12:32:47 Gestation period, 33 weeks 11779732 Z3A.33 [id number] Lennie Dockery [facility] [address],[place] [address] 08/21/2024 14:24:55 08/21/2024 15:38:20 Gestation period, 36 weeks 83056398 Z3A.36 [id number] [facility] [address] [address] 08/21/2024 14:25:30 08/21/2024 15:09:26 Large for gestation age fetus 609856442 O36.62X0 Z3A.35 [id number] Lennie Dockery [facility] [address],[place] [address] 08/28/2024 16:30:25 08/31/2024 10:22:44 Gestation period, 36 weeks 63976869 Z3A.36 [id number] Lennie Dockery [facility] [address] [address] 09/04/2024 14:05:45 09/04/2024 14:37:30 Gestation period, 37 weeks 84229303 Z3A.37 Health Concerns Section Related Observation LastModified by Organization Detai ls LastModified Time None Recorded Concern Status LastModified by Organization Details LastModified Time None Recorded Advance Directives Directive N: Payers Encounter Date Sequence Insurance Name Policy Number Policy [place] Covered Member ID Quesada Member ID Guarantor Name 08/07/2024 1 [facility] [id number] Artis Janet [id number] 2 [place] 08/21/2024 1 [facility] [id number] Artis Gonzales [id number] 2 Judith Janet 08/21/2024 1 [facility] [id number] Artis [place] [id number] Judith Janet 08/28/2024 1 [facility] [id number] Artis [place] [id number] 2 Judith [place] 09/04/2024 1 [facility] [id number] Artis Gonzales [id number] 2 Judith Gonzales OBGyn Episode Ob Episode Information Episode Created Date Number of Fetuses Patient Bloodtype Patient rh Status Prepregnancy Weight lbs Domestic Partner Domestic Partner Phone Father Name Lamp Wirer Status 10/29/19 20 1 A Positive 143 CLOSED Fetus Data First Name Last Name Admitted to NICU Weight (g) Sex Living Outcome Pediatric Complications Fetus ID Race Codes Race Delivery Type 4280.77 45 F true Full Term 532 Vaginal Delivery Problems Problem Notes Problem Name Start Date End Date Resolution Snomed Code Not e Choroid plexus cyst 01/14/2020 SELFRESOLVED 618124 004 Resolved Hip pain 82948097 & pubis pa in - referred to [facility] 03/17 Mario Calculation Initial Mario Date Initial [...] Gestation 0 [email or web address] 10/29/2019 05/08/20 20 0 Pre- Flowsheet Flowsheet Date 10/29/2019 Dsouza Score Blood Edema Fundus Height Fundus Units Glucose Ketones Leukocytes Nitrite Labor Signs Protein Cervic Dilation Cervic Effacement Cervic Station 12 trace Type Weight in lbs Pre/Post Dialysis Refused Weight 143.236696132906 BP Diastolic BP Location Tested BP Systolic BP Type 81 123 Fetus Heart Rate Present A 167 Fetus Movement Comments Flowsheet Date 11/27/2019 Dsouza Score Blood Edema Fundus Height Fundus Units Glucose Ketones Leukocytes Nitrite Labor Signs Protein Cervic Dilation Cervic Effacement Cervic Station Type Weight in lbs Pre/Post Dialysis Refused Weight 144.563435729861 BP Diastolic BP Location Tested BP Systolic BP Type 81 119 Fetus Heart Rate Present A 155 Fetus Movement Comments pt doing well, to lab today plan 3 week anatomy and ob visit Flowsheet Date 12/17/2019 Dsouza Score Blood Edema Fundus Height Fundus Units Glucose Ketones Leukocytes Nitrite Labor Signs Protein Cervic Dilation Cervic Effacement Cervic Station Type Weight in lbs Pre/Post Dialysis Refused BP Diastolic BP Location Tested BP Systolic BP Type Fetus Heart Rate Present Fetus Movement Comments Flowsheet Date 12/17/2019 Dsouza Score Blood Edema Fundus Height Fundus Units Glucose Ketones Leukocytes Nitrite Labor Signs Protein Cervic Dilation Cervic Effacement Cervic Station 20 trace Type Weight in lbs Pre/Post Dialysis Refused Weight 147.144696793935 BP Diastolic BP Location Tested BP Systolic BP Type 78 120 Fetus Heart Rate Present Fetus Movement A Yes Comments Pt doing well. Baseline barbi katy. 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 Flowsheet Date 01/14/2020 Dsouza Score Blood Edema Fundus Height Fundus Units Glucose Ketones Leukocytes Nitrite Labor Signs Protein Cervic Dilation Cervic Effacement Cervic Station Type Weight in lbs Pre/Post Dialysis Refused BP Diastolic BP Location Tested BP Systolic BP Type Fetus Heart Rate Present Fetus Movement Comments Flowsheet Date 01/14/2020 Dsouza Score Blood Edema Fundus Height Fundus Units Glucose Ketones Leukocytes Nitrite Labor Signs Protein Cervic Dilation Cervic Effacement Cervic Station trace Type Weight in lbs Pre/Post Dialysis Refused Weight 156.737241186766 BP Diastolic BP Location Tested BP Systolic BP Type 83 L arm 118 sitting Fetus Heart Rate Present Fetus Movement A Yes Comments SECURITY COMPLIANCE SPECIALIST resolved. PT doing well. Leg cramps. Increase potassium. Flowsheet Date 02/12/2020 Dsouza Score Blood Edema Fundus Height Fundus Units Glucose Ketones Leukocytes Nitrite Labor Signs Protein Cervic Dilation Cervic Effacement Cervic Station neg none 27 trace Type Weight in lbs Pre/Post Dialysis Refused Weight 165.932081504746 BP Diastolic BP Location Tested BP Systolic BP Type 75 116 Fetus Heart Rate Present A 154 Fetus Movement A Yes Comments patient is having hip pain, maternity support belt ordered, precautions, gct today Flowsheet Date 02/23/2020 Dsouza Score Blood Edema Fundus Height Fundus Units Glucose Ketones Leukocytes Nitrite Labor Signs Protein Cervic Dilation Cervic Effacement Cervic Station neg none 29 trace Type Weight in lbs Pre/Post Dialysis Refused Weight 168.486458983437 BP Diastolic BP Location Tested BP Systolic [...] Pt was very understanding. Flowsheet Date 03/11/2020 Dsouza Score Blood Edema Fundus Height Fundus Units Glucose Ketones Leukocytes Nitrite Labor Signs Protein Cervic Dilation Cervic Effacement Cervic Station neg none 30 trace Type Weight in lbs Pre/Post Dialysis Refused Weight 173.844724902687 BP Diastolic BP Location Tested BP Systolic BP Type 60 120 Fetus Heart Rate Present A 144 Fetus Movement A Yes Comments patient is having pelvic, ri b, and back pain, rec ice for rib pain, starts pt next week, precautions reviewed Flowsheet Date 03/25/2020 Dsouza Score Blood Edema Fundus Height Fundus Units Glucose Ketones Leukocytes Nitrite Labor Signs Protein Cervic Dilation Cervic Effacement Cervic Station neg none 34 trace Type Weight in lbs Pre/Post Dialysis Refused Weight 178.187054120193 BP Diastolic BP Location Tested BP Systolic BP Type 87 127 Fetus Heart Rate Present A 150 Fetus Movement A Yes Comments patient is having BH contrac tions, precautions, gbs next visit Flowsheet Date 04/08/2020 Dsouza Score Blood Edema Fundus Height Fundus Units Glucose Ketones Leukocytes Nitrite Labor Signs Protein Cervic Dilation Cervic Effacement Cervic Station neg none 36 trace Type Weight in lbs Pre/Post Dialysis Refused Weight 183.346341603182 BP Diastolic BP Location Tested BP Systolic BP Type 89 136 Fetus Heart Rate Present A 145 Fetus Movement A Yes Comments patient states that having h eartburn and contractions, labor precautions gbs done, preadmit on saturday Flowsheet Date 04/15/2020 Dsouza Score Blood Edema Fundus Height Fundus Units Glucose Ketones Leukocytes Nitrite Labor Signs Protein Cervic Dilation Cervic Effacement Cervic Station 37 neg Type Weight in lbs Pre/Post Dialysis Refused Weight 183.465163669679 BP Diastolic BP Location Tested BP Systolic BP Type 78 L arm 135 sitting Fetus Heart Rate Present A 134 Fetus Movement Comments precautions 1/2 cm dilated f /u one week Flowsheet Date 04/22/2020 Dsouza Score Blood Edema Fundus Height Fundus Units Glucose Ketones Leukocytes Nitrite Labor Signs Protein Cervic Dilation Cervic Effacement Cervic Station neg none 37 trace 2cm 70% -2 Type Weight in lbs Pre/Post Dialysis Refused Weight 183.962300148226 BP Diastolic BP Location Tested BP Systolic BP Type 83 125 Fetus Heart Rate Present A 155 Fetus Movement A Yes Comments patient is having pain and c ontractions, reviewed risk of c/s with pt dsouza score favorable plan EIL at 39 + weeks Flowsheet Date 04/29/2020 Dsouza Score Blood Edema Fundus Height Fundus Units Glucose Ketones Leukocytes Nitrite Labor Signs Protein Cervic Dilation Cervic Effacement Cervic Station neg trace 37 trace 3cm 70% -2 Type Weight in lbs Pre/Post Dialysis Refused Weight 185.419720912142 BP Diastolic BP Location Tested BP Systolic BP Type 87 148 Fetus Heart Rate Present A 142 Fetus Movement A Yes Comments PATIENT STATES THAT HAVING S OME PRESSURE, PELVIC PAIN, SPOTTING AFTER BEING CHECKED AND NAUSEA, labor precautions Flowsheet Date 05/10/2020 Dsouza Score Blood Edema Fundus Height Fundus Units Glucose Ketones Leukocytes Nitrite Labor Signs Protein Cervic Dilation Cervic Effacement Cervic Station Type Weight in lbs Pre/Post Dialysis Refused Weight 167.470827299298 BP Diastolic BP Location Tested BP Systolic [...] Estim ated Date of Delivery false Thalassemia (Sudanese, Mongolian, Mediterranean, Or Background): MCV < 80 false Neural Tube Defect (Meningomyelocele, Spina Bifi da, Or Anencephaly) false Congenital Heart Defect false Down Syndrome false Kevin-Sachs (eg, Faith, Cajun, Portuguese-Bolivian) f alse Dante Disease false Sickle Cell Disease Or Trait () false Hemophilia Or Other Blood Disorders false Muscular Dystrophy false Cystic Fibrosis false Arabi's Chorea false Intellectual Disability/Autism false If Yes, [...] Discharge Date Comments 0 Induce d 39.2 [email or web address] Discharge Information Feeding Method Contraceptive Method Maternal HG B and HCT Levels Ob Episode Information Episode Created Date Number of Fetuses Patient Bloodtype Patient rh Status Prepregnancy Weight lbs Domestic Partner Domestic Partner Phone Father Name Lamp Wirer Status 03/18/20 24 1 A Positive 171 Farhad Janet OPEN Fetus Data First Name Last Name Admitted to NICU Weight (g) Sex Living Outcome Pediatric Complications Fetus ID Race Codes Race Delivery Type [id number] Problems Problem Notes Problem Name Start Date End Date Resolution Snomed Code Not e Large for gestation age fetus [id number] 9lb 7 oz in 202 0 Mario Calculation Initial Mario Date Initial Exam Date Initial Exam Provider Initial Ultrasound Date Last Menstrual Period Date Ultra Sound Weeks Gestation 09/20/2024 02/12/2024 Lennie Nahed 02/12/2024 12/15/2023 9 Eighteen To Twenty Week Mario Update Ultra Sound Date Fundal Height At Umbil Quickening Date Ultra Sound Latest Weeks Gestation Final Mario Confirmed By Final Mario Confirmed Date Final Mario Date Ultra Sound Latest Days Gestation 0 0 Pre-jesus Flowsheet Flowsheet Date 03/18/2024 Dsouza Score Blood Edema Fundus Height Fundus Units Glucose Ketones Leukocytes Nitrite Labor Signs Protein Cervic Dilation Cervic Effacement Cervic Station none none trace Type Weight in lbs Pre/Post Dialysis Refused Weight 173.523618934825 BP Diastolic BP Location Tested BP Systolic BP Type 85 128 Fetus Heart Rate Present Fetus Movement A No Comments reviewed us, start routine p renatal care, hx possible heart palpitations, resolved f/u 4 weeks then anatomy at 20 weekshistory of vaginal delivery Flowsheet Date 04/10/2024 Dsouza Score Blood Edema Fundus Height Fundus Units Glucose Ketones Leukocytes Nitrite Labor Signs Protein Cervic Dilation Cervic Effacement Cervic Station none Type Weight in lbs Pre/Post Dialysis Refused 174.18120420129 BP Diastolic BP Location Tested BP Systolic BP Type 81 129 Fetus Heart Rate Present A 155 Present Fetus Movement A Yes Comments doing well, +FM girl!!, educ ation and precautions plan 20 week anatomy scan Flowsheet Date 05/06/2024 Dsouza Score Blood Edema Fundus Height Fundus Units Glucose Ketones Leukocytes Nitrite Labor Signs Protein Cervic Dilation Cervic Effacement Cervic Station Type Weight in lbs Pre/Post Dialysis Refused BP Diastolic BP Location Tested BP Systolic BP Type Fetus Heart Rate Present Fetus Movement Comments Flowsheet Date 05/06/2024 Dsouza Score Blood Edema Fundus Height Fundus Units Glucose Ketones Leukocytes Nitrite Labor Signs Protein Cervic Dilation Cervic Effacement Cervic Station none Type Weight in lbs Pre/Post Dialysis Refused 182.086224539230 BP Diastolic BP Location Tested BP Systolic BP Type 83 135 Fetus Heart Rate Present Fetus Movement A Yes Comments Patient states that is havin g some arm and nerve pain. has flexeril rx, ok for refill if needed, precautions and education +FM anatomy complete f/u 4 weeks Flowsheet Date 06/05/2024 Dsouza Score Blood Edema Fundus Height Fundus Units Glucose Ketones Leukocytes Nitrite Labor Signs Protein Cervic Dilation Cervic Effacement Cervic Station none Type Weight in lbs Pre/Post Dialysis Refused 190.315810433351 BP Diastolic BP Location Tested BP Systolic BP Type 88 125 Fetus Heart Rate Present A 150 Present Fetus Movement A Yes Comments doing well, ligament pain, b elt not really helping, education and precautions f/u 4 weeks with gct Flowsheet Date 06/26/2024 Dsouza Score Blood Edema Fundus Height Fundus Units Glucose Ketones Leukocytes Nitrite Labor Signs Protein Cervic Dilation Cervic Effacement Cervic Station Type Weight in lbs Pre/Post Dialysis Refused BP Diastolic BP Location Tested BP Systolic BP Type Fetus Heart Rate Present Fetus Movement Comments Flowsheet Date 06/26/2024 Dsouza Score Blood Edema Fundus Height Fundus Units Glucose Ketones Leukocytes Nitrite Labor Signs Protein Cervic Dilation Cervic Effacement Cervic Station none Type Weight in lbs Pre/Post Dialysis Refused 197.096270623275 BP Diastolic BP Location Tested BP Systolic BP Type 85 135 Fetus Heart Rate Present Fetus Movement A Yes Comments Patient is having heartburn and pelvic pain. ok for pepcid and tums efw 88%, vertex, ok for maternity support belt, precautions and education, f/u 2 weeks Flowsheet Date 07/24/2024 Dsouza Score Blood Edema Fundus Height Fundus Units Glucose Ketones Leukocytes Nitrite Labor Signs Protein Cervic Dilation Cervic Effacement Cervic Station none 33 cm Type Weight in lbs Pre/Post Dialysis Refused 198.898887416403 BP Diastolic BP Location Tested BP Systolic BP Type 83 124 Fetus Heart Rate Present A 147 Present Fetus Movement A Yes Comments Patient is having pressure a nd BH contraction, feeling better had GI virus, +FM hx LGA plan 36 week us precautions and education call for preadmit Flowsheet Date 08/07/2024 Dsouza Score Blood Edema Fundus Height Fundus Units Glucose Ketones Leukocytes Nitrite Labor Signs Protein Cervic Dilation Cervic Effacement Cervic Station neg trace Type Weight in lbs Pre/Post Dialysis Refused Weight 202.552767185715 BP Diastolic BP Location Tested BP Systolic BP Type 78 121 Fetus Heart Rate Present Fetus Movement A Yes Comments Patient states that is havin g some swelling. plan gbs in 2 weeks, call for preadmit, +FM, education and precautions Flowsheet Date 08/21/2024 Dsouza Score Blood Edema Fundus Height Fundus Units Glucose Ketones Leukocytes Nitrite Labor Signs Protein Cervic Dilation Cervic Effacement Cervic Station Type Weight in lbs Pre/Post Dialysis Refused BP Diastolic BP Location Tested BP Systolic BP Type Fetus Heart Rate Present Fetus Movement Comments Flowsheet Date 08/21/2024 Dsouza Score Blood Edema Fundus Height Fundus Units Glucose Ketones Leukocytes Nitrite Labor Signs Protein Cervic Dilation Cervic Effacement Cervic Station 3cm 60% -3 Type Weight in lbs Pre/Post Dialysis Refused 204.068407638875 BP Diastolic BP Location Tested BP Systolic BP Type 82 129 Fetus Heart Rate Present Fetus Movement A Yes Comments Patient is having cramping . +FM, precautions and education LGA at 96%, plan 39 week IOL , f/u one week gbs collected Flowsheet Date 08/28/2024 Dsouza Score Blood Edema Fundus Height Fundus Units Glucose Ketones Leukocytes Nitrite Labor Signs Protein Cervic Dilation Cervic Effacement Cervic Station neg trace 38 cm 3cm -3 Type Weight in lbs Pre/Post Dialysis Refused 206.378215280770 BP Diastolic BP Location Tested BP Systolic BP Type 84 133 Fetus Heart Rate Present A 145 Fetus Movement A Yes Comments Patient is having some contr actions and swelling. +FM, precautions and eduction, IOL scheduled f/u one week Flowsheet Date 09/04/2024 Dsouza Score Blood Edema Fundus Height Fundus Units Glucose Ketones Leukocytes Nitrite Labor Signs Protein Cervic Dilation Cervic Effacement Cervic Station neg none 39 cm Type Weight in lbs Pre/Post Dialysis Refused Weight 208.122666272824 BP Diastolic BP Location Tested BP Systolic BP Type 81 135 Fetus Heart Rate Present A 148 Present Fetus Movement A Yes Comments Patient is having some contr actions. +FM, precautions and education, plan membrane sweep next week, IOL scheduled. Menstrual History Last Menstrual Date Menses Monthly [...]
--- OUTSIDE RECORDS SUMMARY | 2024-09-06 21:17 | XMS_ITS | Clinical Summary ---
Author Organization [facility] [place] [address] l[address] Address [address] [facility] [address] Care Team Providers Care Manual Machinist Name Role Phone David Lindquist MD Primary Care Provider [phone] No, Physician Unavailable Lennie Dockery FELT HAT STEAMER Unavailable [phone] Allergies Active Allergy Reactions Criticality Noted Date [...] (03/26/2024): & pubis pain - referred to [facility] 03/17 Annual physical exam 06/19/2023 Assessment & Plan (06/19/2023 11:30 AM COVER MARKER): Discussed lifestyle modifications, diet and exercise. Routine blood work ordered/reviewed today. Yearly vision and dental examinations. Tachycardia 09/06/2022 Essential hypertension 08/06/2022 Assessment & Plan (06/19/2023 11:32 AM COVER MARKER): At goal at this time [place] current [...] activity. Assessment & Plan (09/06/2022 10:29 AM COVER MARKER): BP Readings from Last 3 Encounters: 09/06/22 [...] activity. Assessment & Plan (08/06/2022 12:15 PM COVER MARKER): BP Readings from Last 3 Encounters: 08/06/22 [...] 05/23/2022 Assessment & Plan (05/23/2022 9:53 AM COVER MARKER): No improvement with claritin or ibuprofen will [...] patient's age to complete this topic [facility] Care Teams Manual Machinist Relationship Specialty Start Date End Date David Lindquist MD PCP - General Family Medicine 05/23/22 No, Physician 05/23/22 Lennie Dockery NP Nurse Practitioner Obstetrics and Gynecology 09/06/22
--- OUTSIDE RECORDS SUMMARY | 2024-09-06 21:17 | XMS_ITS | Referral Summary ---
Author Organization [facility] [place] [address] [facility] lto Address [address] [facility] [place] [address] Care Team Providers Care Web Ui Software Engineer Name Role Phone David Lindquist MD Primary Care Provider [phone] No, Physician Unavailable Lennie Dockery SAND WORKER Unavailable [phone] Allergies Active Allergy Reactions Criticality Noted Date [...] (03/26/2024): & pubis pain - referred to [facility] 03/17 Annual physical exam 06/19/2023 Assessment & Plan (06/19/2023 11:30 AM SCREEN ROLLER): Discussed lifestyle modifications, diet and exercise. Routine blood work ordered/reviewed today. Yearly vision and dental examinations. Tachycardia 09/06/2022 Essential hypertension 08/06/2022 Assessment & Plan (06/19/2023 11:32 AM SCREEN ROLLER): At goal at this time [place] current [...] activity. Assessment & Plan (09/06/2022 10:29 AM SCREEN ROLLER): BP Readings from Last 3 Encounters: 09/06/22 [...] activity. Assessment & Plan (08/06/2022 12:15 PM SCREEN ROLLER): BP Readings from Last 3 Encounters: 08/06/22 [...] 05/23/2022 Assessment & Plan (05/23/2022 9:53 AM SCREEN ROLLER): No improvement with claritin or ibuprofen will [...] Plan of Treatment Not on file Insurance [facility] [employer] Address: [facility] [id number] [phone] [facility] [employer] Address: [address] [place] [address] [facility] Care Teams Web Ui Software Engineer Relationship Specialty Start Date End Date David Lindquist MD PCP - General Family Medicine 05/23/22 No, Physician 05/23/22 Lennie Dockery NP [phone] (work) Nurse Practitioner Obstetrics and Gynecology 09/06/22
--- OUTSIDE RECORDS SUMMARY | 2024-09-06 21:17 | XMS_ITS | Patient Health Summary ---
Author Organization [facility] Address [address] [place] [address] Care Team Providers Care Ophthalmic Photographer Name Role Phone Unavailable Primary Care Provider Unavailabl e Note from [facility],non-owned Affiliates and Associated Physician Practices is amultiple site organization consisting of ambulatory clinics and hospital sitesin [place], [place], [place] and [place]. This disclosure is being madepursuant to the Care Everywhere program and may not contain all information available regarding this patient. Last updated 18.[facility] Allergies * Amoxicillin(Itching) Medications * Be [...] Comments Blood Pressure 108/70 07/07/2019 10:01 AM VOCATIONAL ED INSTRUCTOR Pulse 103 07/07/2019 10:01 AM VOCATIONAL ED INSTRUCTOR Temperature 38.5 C (101.3 F) 07/07/2019 10:01 AM VOCATIONAL ED INSTRUCTOR Respiratory Rate 16 07/07/2019 10:01 AM VOCATIONAL ED INSTRUCTOR Oxygen Saturation 97% 07/07/2019 10:01 AM VOCATIONAL ED INSTRUCTOR Inhaled Oxygen Concentration - - Weight 68.9 kg (152 lb) 07/07/2019 10:01 AM VOCATIONAL ED INSTRUCTOR Height 166.4 cm (5' 5.5 ) 07/07/2019 10:01 AM CS T Body Mass Index 24.91 07/07/2019 10:01 AM VOCATIONAL ED INSTRUCTOR Procedures * INFLUENZA A+B - POINT OF CARE (AMB)(Performed 07/07/2019) Performed for Lower respiratory infection * STREP A SCREEN - POINT OF CARE (AMB) STL(Performed 07/07/2019) Performed for Lower respiratory infection * SKIN TEST PPD - POINT OF CARE(Performed 12/25/2018) Performed for PPD screening test Results * INFLUENZA A+B - POINT OF CARE (AMB) (07/07/2019 10:08 AM VOCATIONAL ED INSTRUCTOR) Influenza A Antigen Rapid Negative Negative Influenza B Antigen Rapid Negative Negative Influenza Internal Control positive NEGATIVE - POSITIVE Influenza Lot Number [id number] Influenza Expiration Date Other NASOPHARYNGEAL SWAB / Unknown 07/07/2019 10:08 AM VOCATIONAL ED INSTRUCTOR Jevon Brice APRN-STUDENT SERVICES REPRESENTATIVE LAB - POINT OF CA RE ORDERABLES * STREP A SCREEN - POINT OF CARE (AMB) STL (07/07/2019 10:06 AM VOCATIONAL ED INSTRUCTOR) Strep A Rapid POCT Negative Negative Strep A Internal Control Present Lot # [id number] Expiration Date 12 12 2020 Throat ENTIRE THROAT (SURFACE REGION OF NECK) / Unknown 07/07/2019 10:06 AM VOCATIONAL ED INSTRUCTOR Jevon Brice APRN-STUDENT SERVICES REPRESENTATIVE LAB - POINT OF CA RE ORDERABLES * SKIN TEST PPD - POINT OF CARE (12/25/2018) PPD neg Comment:jewel Jenog Other MISCELLANEOUS SAMPLE S / Unknown 12/25/2018 Jevon Brice APRN-STUDENT SERVICES REPRESENTATIVE LAB - POINT OF CA RE ORDERABLES
--- OUTSIDE RECORDS SUMMARY | 2024-09-06 21:17 | XMS_ITS | Clinical Summary ---
Author Organization [facility] Address [address] [place] [place] [address] Care Team Providers Care Overhead Foreman Name Role Phone Unavailable Primary Care Provider Unavailabl e Source Comments [facility],non-owned Affiliates and Associated Physician Practices is amultiple site organization consisting of ambulatory clinics and hospital sitesin [place], [place], [place] and [place]. This disclosure is being madepursuant to the Care Everywhere program and may not contain all information available regarding this patient. Last updated 18.[facility] [employer] Allergies Active Allergy Reactions Criticality Noted Date [...] Comments Blood Pressure 108/70 07/07/2019 10:01 AM PERSONNEL CLERKS SUPERVISOR Pulse 103 07/07/2019 10:01 AM PERSONNEL CLERKS SUPERVISOR Temperature 38.5 C (101.3 F) 07/07/2019 10:01 AM PERSONNEL CLERKS SUPERVISOR Respiratory Rate 16 07/07/2019 10:01 AM PERSONNEL CLERKS SUPERVISOR Oxygen Saturation 97% 07/07/2019 10:01 AM PERSONNEL CLERKS SUPERVISOR Inhaled Oxygen Concentration - - Weight 68.9 kg (152 lb) 07/07/2019 10:01 AM PERSONNEL CLERKS SUPERVISOR Height 166.4 cm (5' 5.5 ) 07/07/2019 10:01 AM CS T Body Mass Index 24.91 07/07/2019 10:01 AM PERSONNEL CLERKS SUPERVISOR Plan of Treatment Health Maintenance Due Date [...]
[2024-09-06 21:46] VITALS: BP 136/79; PULSE 90
[2024-09-06 21:47] VITALS: BP 121/76; PULSE 95
[2024-09-06 21:50] LABS: Basophils Percent Auto 0.4 % (0.2-1.2); Eosinophils Absolute Auto 0.1 K/mm3 (0-0.3); Hematocrit 32.8 % (37.0-47.0); Hemoglobin 10.9 g/dL (12.0-15.0); Immature Granulocyte Absolute 0.04 K/mm3 (0.00-0.031); Immature Granulocyte Percent A 0.5 % (0-0.5); Lymphocytes Absolute Auto 2.02 K/mm3 (0.9-3.2); Lymphocytes Percent Auto 25.9 % (18.3-44.2); Mean Corpuscular HGB Conc 33.2 g/dl (32-36); Mean Corpuscular Hemoglobin 31.6 pg (26-34); Mean Corpuscular Volume 95.1 fl (80-100); Mean Platelet Volume 9.3 fl (7.4-10.4); Monocytes Absolute Auto 0.7 K/mm3 (0.1-0.6); Monocytes Percent Auto 9.5 % (2.6-8.5); Neutrophils Absolute Auto 4.9 K/mm3 (1.3-6.7); Neutrophils Percent Auto 62.7 % (45.5-73.1); Nucleated Red Blood Cells Perc 0.3 % (0.0-0.2); Platelet Count Result 345 k/mm3 (150-375); Red Blood Count 3.45 M/mm3 (4.2-5.4); Red Cell Distribution Width 15.3 % (11.5-14.5); White Blood Count 7.8 K/mm3 (4.5-10.0)
[2024-09-06 21:51] LABS: Add Urine Microscopic? YES; Appearance Urine Clear (Clear); Bacteria Urine Rare /hpf; Bilirubin Urine Negative (Negative); Blood Urine Negative (Negative); Color Urine Yellow (Yellow); Glucose Urine UA Negative (Negative); Ketones Urine Negative (Negative); Leukocyte Esterase Ur 1+ LEU/UL (Negative); Nitrate Urine Negative (Negative); Non Pathogenic Casts 0-2; Protein Urine Negative (Negative); RBC Urine 0-2 /hpf (0-2); Specific Grav Ur 1.007 (1.001-1.035); Squamous Epithelial Cell Urine Occasional /hpf (Few); Urobilinogen Urine 0.2 mg/dL (<2.0)
[2024-09-06 21:54] LABS: Creatinine Urine 37.7 mg/dL; Total Protein Urine Random 25 mg/dL; Ur Ttl Prot Creatinine Ratio 0.66 mg/mg (0-0.20)
[2024-09-06 22:01] VITALS: BP 123/73; PULSE 101
[2024-09-06 22:01] LABS: Alanine Aminotransferase 14 U/L (6-35); Albumin Level 3.5 g/dL (3.5-5.1); Alkaline Phosphatase 136 U/L (38-126); Anion Gap 10 mmol/L (4-12); Aspartate Amino Transferase 17 U/L (14-36); Bilirubin,Total 0.4 mg/dL (0.2-1.3); Blood Urea Nitrogen 4 mg/dL (7-17); Calcium 9.9 mg/dL (8.4-10.2); Carbon Dioxide 19 mmol/L (22-30); Chloride 107 mmol/L (98-107); Estimated Glomerular Filt Rate > 60; Glucose 133 mg/dL (65-110); Potassium 3.8 mmol/L (3.4-5.0); Sodium 136 mmol/L (137-145); Uric Acid 5.2 mg/dL (2.5-7.5)
[2024-09-06 22:16] VITALS: BP 115/71; PULSE 91
[2024-09-06 22:31] VITALS: BP 116/72; PULSE 95
== END 2024-09-06 23:35 | disposition home or self-care (01) ==
LOC: ANHOBOP 21:16 → ANHOBPP 21:18
PROVIDERS: Advanced Practice Midwife; PCP Family Medicine; Visit Provider Obstetrics & Gynecology
DX: O13.9 Gestational [pregnancy-induced] hypertension without significant proteinuria, unspecified trimester (principal); Z3A.00 Weeks of gestation of pregnancy not specified
CPT/HCPCS: 36415; 80053; 81001; 82570; 84156; 84550; 85025; 87086; 99199

== ENCOUNTER 2024-09-09 09:49 | Inpatient (IN) | payer OTHER, SELFPAY ==
[2024-09-09] VITALS (171 sets, daily range): BP systolic 106–146; BP diastolic 59–111; PULSE 44–236; TEMP 36.3–36.9; O2SAT 82–100; BMI 34.8
[2024-09-09 10:29] LABS: Basophils Percent Auto 0.3 % (0.2-1.2); Eosinophils Absolute Auto 0.1 K/mm3 (0-0.3); Eosinophils Percent Auto 0.8 % (0-4.4); Hemoglobin 11.8 g/dL (12.0-15.0); Immature Granulocyte Absolute 0.06 K/mm3 (0.00-0.031); Immature Granulocyte Percent A 0.8 % (0-0.5); Lymphocytes Absolute Auto 1.98 K/mm3 (0.9-3.2); Lymphocytes Percent Auto 25.8 % (18.3-44.2); Mean Corpuscular HGB Conc 32.8 g/dl (32-36); Mean Corpuscular Hemoglobin 31.2 pg (26-34); Mean Corpuscular Volume 95.2 fl (80-100); Mean Platelet Volume 9.4 fl (7.4-10.4); Monocytes Absolute Auto 0.7 K/mm3 (0.1-0.6); Monocytes Percent Auto 9.3 % (2.6-8.5); Neutrophils Absolute Auto 4.8 K/mm3 (1.3-6.7); Platelet Count Result 356 k/mm3 (150-375); Red Blood Count 3.78 M/mm3 (4.2-5.4); Red Cell Distribution Width 15.1 % (11.5-14.5); White Blood Count 7.7 K/mm3 (4.5-10.0)
[2024-09-09 10:40] LABS: Alanine Aminotransferase 14 U/L (6-35); Albumin Level 3.7 g/dL (3.5-5.1); Alkaline Phosphatase 155 U/L (38-126); Anion Gap 13 mmol/L (4-12); Aspartate Amino Transferase 20 U/L (14-36); Bilirubin,Total 0.5 mg/dL (0.2-1.3); Blood Urea Nitrogen 5 mg/dL (7-17); Calcium 10.4 mg/dL (8.4-10.2); Carbon Dioxide 18 mmol/L (22-30); Chloride 107 mmol/L (98-107); Estimated Glomerular Filt Rate > 60; Glucose 92 mg/dL (65-110); Sodium 138 mmol/L (137-145); Uric Acid 5.6 mg/dL (2.5-7.5)
--- NOTE | 2024-09-09 10:48 | LDADM ---
This patient, Judith Gonzales, was admitted to Labor/Delivery/Recovery 109 on 09/09/24 at 09:49. Plans for labor, pain management and were discussed with patient. Patient/family oriented to hospital policies and general routines including ID bracelet, bed and alarms, visiting hours, pain management, procedures, bathroom and other care routines, personal items, smoking policy, room service/diet and guest tray routines, security routines, and visiting hours. Patient/Family are encouraged to report perceived risks to care and to ask questions if they do not understand what they are told or what they should do. See OBIX for further documentation.
--- OUTSIDE RECORDS SUMMARY | 2024-09-09 11:09 | XMS_ITS | Clinical Summary ---
Author Organization [facility] Address [address] [place] [address] Care Team Providers Care Dental Hygienist Name Role Phone Unavailable Primary Care Provider Unavailabl e Source Comments [facility],non-owned Affiliates and Associated Physician Practices is amultiple site organization consisting of ambulatory clinics and hospital sitesin [place], [place], [place] and [place]. This disclosure is being madepursuant to the Care Everywhere program and may not contain all information available regarding this patient. Last updated 18.[facility] Allergies Active Allergy Reactions Criticality Noted Date [...] Comments Blood Pressure 108/70 07/07/2019 10:01 AM MORTGAGE LOAN REVIEWER Pulse 103 07/07/2019 10:01 AM MORTGAGE LOAN REVIEWER Temperature 38.5 C (101.3 F) 07/07/2019 10:01 AM MORTGAGE LOAN REVIEWER Respiratory Rate 16 07/07/2019 10:01 AM MORTGAGE LOAN REVIEWER Oxygen Saturation 97% 07/07/2019 10:01 AM MORTGAGE LOAN REVIEWER Inhaled Oxygen Concentration - - Weight 68.9 kg (152 lb) 07/07/2019 10:01 AM MORTGAGE LOAN REVIEWER Height 166.4 cm (5' 5.5 ) 07/07/2019 10:01 AM CS T Body Mass Index 24.91 07/07/2019 10:01 AM MORTGAGE LOAN REVIEWER Plan of Treatment Health Maintenance Due Date [...]
--- OUTSIDE RECORDS SUMMARY | 2024-09-09 11:09 | XMS_ITS | Referral Summary ---
Author Organization [facility] [address] Address [address] [facility] [place] [address] Care Team Providers Care Clinical Support Specialist Name Role Phone David Lindquist MD Primary Care Provider [phone] No, Physician Unavailable Lennie Dockery WAGON DRIVER SALESPERSON Unavailable [phone] Allergies Active Allergy Reactions Criticality Noted Date [...] (03/26/2024): & pubis pain - referred to [facility] 03/17 Annual physical exam 06/19/2023 Assessment & Plan (06/19/2023 11:30 AM BEDSPREAD SEAMER): Discussed lifestyle modifications, diet and exercise. Routine blood work ordered/reviewed today. Yearly vision and dental examinations. Tachycardia 09/06/2022 Essential hypertension 08/06/2022 Assessment & Plan (06/19/2023 11:32 AM BEDSPREAD SEAMER): At goal at this time [place] current [...] activity. Assessment & Plan (09/06/2022 10:29 AM BEDSPREAD SEAMER): BP Readings from Last 3 Encounters: 09/06/22 [...] activity. Assessment & Plan (08/06/2022 12:15 PM BEDSPREAD SEAMER): BP Readings from Last 3 Encounters: 08/06/22 [...] 05/23/2022 Assessment & Plan (05/23/2022 9:53 AM BEDSPREAD SEAMER): No improvement with claritin or ibuprofen will [...] Plan of Treatment Not on file Insurance [facility] [employer] Address: [facility] [id number] [id number] [facility] [employer] Address: [address] [place] [address] [facility] Care Teams Clinical Support Specialist Relationship Specialty Start Date End Date David Lindquist MD PCP - General Family Medicine 05/23/22 No, Physician 05/23/22 Lennie Dockery NP [phone] (work) Nurse Practitioner Obstetrics and Gynecology 09/06/22
--- OUTSIDE RECORDS SUMMARY | 2024-09-09 11:09 | XMS_ITS | Patient Health Summary ---
Author Organization [facility] Address [address] [place] [address] Care Team Providers Care Power Line Installer Name Role Phone Unavailable Primary Care Provider Unavailabl e Note from [facility],non-owned Affiliates and Associated Physician Practices is amultiple site organization consisting of ambulatory clinics and hospital sitesin [place], [place], [place] and [place]. This disclosure is being madepursuant to the Care Everywhere program and may not contain all information available regarding this patient. Last updated 18.[facility] Allergies * Amoxicillin(Itching) Medications * Be aware [...] Comments Blood Pressure 108/70 07/07/2019 10:01 AM BUNDLE SORTER Pulse 103 07/07/2019 10:01 AM BUNDLE SORTER Temperature 38.5 C (101.3 F) 07/07/2019 10:01 AM BUNDLE SORTER Respiratory Rate 16 07/07/2019 10:01 AM BUNDLE SORTER Oxygen Saturation 97% 07/07/2019 10:01 AM BUNDLE SORTER Inhaled Oxygen Concentration - - Weight 68.9 kg (152 lb) 07/07/2019 10:01 AM BUNDLE SORTER Height 166.4 cm (5' 5.5 ) 07/07/2019 10:01 AM CS T Body Mass Index 24.91 07/07/2019 10:01 AM BUNDLE SORTER Procedures * INFLUENZA A+B - POINT OF CARE (AMB)(Performed 07/07/2019) Performed for Lower respiratory infection * STREP A SCREEN - POINT OF CARE (AMB) STL(Performed 07/07/2019) Performed for Lower respiratory infection * SKIN TEST PPD - POINT OF CARE(Performed 12/25/2018) Performed for PPD screening test Results * INFLUENZA A+B - POINT OF CARE (AMB) (07/07/2019 10:08 AM BUNDLE SORTER) Influenza A Antigen Rapid Negative Negative Influenza B Antigen Rapid Negative Negative Influenza Internal Control positive NEGATIVE - POSITIVE Influenza Lot Number [id number] Influenza Expiration Date Other NASOPHARYNGEAL SWAB / Unknown 07/07/2019 10:08 AM BUNDLE SORTER Jevon Brice APRN-HEALTH SERVICES MANAGER LAB - POINT OF CA RE ORDERABLES * STREP A SCREEN - POINT OF CARE (AMB) STL (07/07/2019 10:06 AM BUNDLE SORTER) Strep A Rapid POCT Negative Negative Strep A Internal Control Present Lot # [id number] Expiration Date 12 12 2020 Throat ENTIRE THROAT (SURFACE REGION OF NECK) / Unknown 07/07/2019 10:06 AM BUNDLE SORTER Jevon Brice APRN-HEALTH SERVICES MANAGER LAB - POINT OF CA RE ORDERABLES * SKIN TEST PPD - POINT OF CARE (12/25/2018) PPD neg Comment:jewel Jeong Other MISCELLANEOUS SAMPLE S / Unknown 12/25/2018 Jevon Brice APRN-HEALTH SERVICES MANAGER LAB - POINT OF CA RE ORDERABLES
--- OUTSIDE RECORDS SUMMARY | 2024-09-09 11:09 | XMS_ITS | Referral Summary ---
Author Organization [facility] Address [address] [place] [address] Care Team Providers Care Client Development Consultant Name Role Phone Unavailable Primary Care Provider Unavailabl e Source Comments [facility],non-owned Affiliates and Associated Physician Practices is amultiple site organization consisting of ambulatory clinics and hospital sitesin [place], [place], [place] and [place]. This disclosure is being madepursuant to the Care Everywhere program and may not contain all information available regarding this patient. Last updated 18.[facility] Allergies Active Allergy Reactions Criticality Noted [...] Comments Blood Pressure 108/70 07/07/2019 10:01 AM COMPOSING ROOM MACHINIST Pulse 103 07/07/2019 10:01 AM COMPOSING ROOM MACHINIST Temperature 38.5 C (101.3 F) 07/07/2019 10:01 AM COMPOSING ROOM MACHINIST Respiratory Rate 16 07/07/2019 10:01 AM COMPOSING ROOM MACHINIST Oxygen Saturation 97% 07/07/2019 10:01 AM COMPOSING ROOM MACHINIST Inhaled Oxygen Concentration - - Weight 68.9 kg (152 lb) 07/07/2019 10:01 AM COMPOSING ROOM MACHINIST Height 166.4 cm (5' 5.5 ) 07/07/2019 10:01 AM CS T Body Mass Index 24.91 07/07/2019 10:01 AM COMPOSING ROOM MACHINIST Plan of Treatment Not on file Administered Medications
--- OUTSIDE RECORDS SUMMARY | 2024-09-09 11:09 | XMS_ITS | Data Portability ---
Author Organization [facility] Address [address] [place] [address] [place] [address] Care Team Providers Care Dicer Operator Name Role Phone JOELLEN GAMBLE Primary Care Provider Assessment Encounter Date Assessment Date Assessment LastModified by Organization Details LastModified Time 08/28/2024 08/28/2024 Patient is ___weeks . Discussed plan. Not available 08/30/2024 12:44:02 09/04/2024 09/04/2024 Patient is __37_weeks . Discussed plan. Not available 09/04/2024 14:32:07 09/09/2024 09/09/2024 Patient is _38__weeks . Discussed plan. Not available 09/09/2024 10:53:44 Plan of Treatment Reminders Order Date Submit Date Provider Last Modified By Organization Details Last Modified Time Details Appointments OB ROUTINE 2024 08:00A M Lennie Dockery CNM Not available Not available Not available NST 2024 08:30A M NST SCHEDULE Not available Not available Not available INDUCTION 2024 05:00A M Lennie Dockery CNM Not available Not available Not available Lab None recorded. Referral None recorded. Procedures None recorded. Surgeries None recorded. Imaging US, obstetric , follow-up 2024 025 [email or web address] [place] [facility] [address], [place], [address], 08/22/2024 11:03:17 Medication Orders None recorded. Patient TargetsNo targets recorded. Patient InstructionsNo instructions recorded. Reason for Referral None Reported. Results Created Date Observation Date Name Description Value Unit Range Abnormal Flag Note LastModifiedBy Organization Detail LastModifiedTime 08/21/1908/21/2024 CULTU RE: GROUP B STREP SCREE N, [...] t Abnor mal: No Resul ting Lab: [facility] [address] [facility] [address] Tel: [phone] CULTU RE ----- ----- ----- --- No Group B strep isola darren at 2 days (jacobo ctive broth enhan cemen t) Not Available [facility] (Lab) [address] [facility], [place], [address], 08/24/2024 15:32:52 08/21/19 25 08/21/2024 , obste tric, follo w-up No observ ation record ed. [facility] [address], [place], [address], 08/21/2024 18:34:14 08/21/19 25 08/21/2024 US, obste tric, follo w-up No observ ation record ed. [place] [id number] [address], [place], [address], 08/22/2024 19:45:06 Result Notes None recorded. Problems Name Problem SNOMED Code Status Onset Date Resolution Date Notes Provider Name and Address Organization Details Recorded Time Choroid plexus cyst 212810946 Completed 01/14/2020 Resolved Suzie Muñoz [facility], [facility] 0 16:02:59 Hip pain 89711110 Completed & pubis pain - referred to [facility] 03/17 Suzie nuñez, [facility] 0 16:02:59 Pregnanc y 38604604 Completed 201905/11/2020 Suzie nuñez [facility] 4 18:13:58 Pregnanc y 75104183 Active 2023 Suzie nuñez, [facility] 4 18:13:58 Large for gestatio n age fetus 907504566 Active 9lb 7 oz in 2019 Lennie Dockery CNM [address], [place], [address], [facility] 4 18:28:59 Pregnanc y detectio n examinat ion Completed 201910/19/2020 Encounte r for pregnanc y test, result positive ;Recorde d Elsewher e: No Locat ion: [facility] S ource: EHR Career Development Associate jacob: N Practi ce ID: [id number] Curtis lable Time: 03:00:00 PM Suzie nuñez [facility] 1 14:08:[address] Concept Completed 201910/19/2020 Encntr for mule tender exam (general ) (routine ) w/o abn findings ;Recorde d Elsewher e: No Locat ion: [facility] S ource: EHR Career Development Associate jacob: N Practi ce ID: [id number] Curtis lable Time: 03:00:00 PM Suzie Muñoz [facility] 1 14:08:47 Problem Notes None recorded. Procedures Surgical History Date Name Laterality Status Provider Name and Address Organization Details Recorded Time 4 Date of Last Pap Smear completed Suzie Muñoz [facility] 02/12/2024 15:07:18 2 extraction of wisdom tooth completed Suzie Muñoz [facility] 07/27/2022 16:22:08 Imaging Results Imaging Date Name Status LastModified by Organiz ation Details LastModified Time 08/21/2024 US, obstetric, follow-up completed [facility] [address], [place], [address], 08/21/2024 18:34:14 08/21/2024 US, obstetric, follow-up completed [address], [place], [address], 08/22/2024 19:45:06 Procedure Notes None recorded. Medical Equipment None Reported. Allergies Allergen ID Allergen Name Allergen Category Reaction Reaction Severity Criticality Documentation Date Start Date Code Code System Note Provider Name and Address Organization Details Recorded Time 210 amoxicill in medicatio n Not available Not available Not available 10/29/2019 723 RxNorm Aide nuñez, [facility] 0 16:37:58 Medications Name Sig Start [...] completed Not Available Not Available Not Available [place] 3 05/16 completed Not Available Not Available Not Available Daysee 0.15 mg-30 mcg (84)/10 mcg(7) tablets,3 month dose pack TAKE ONE TABLET BY MOUTH EVERY DAY 10/26 completed Not Available Not Available Not Available Slynd 4 mg (28) tablet TAKE 1 TABLET BY MOUTH EVERY DAY 05/16 completed Not Available Not Available Not Available Vitals Date Recorded Body weight Systolic blood pressure Diastolic blood pressure Provider Name and Address Organization Details Last Updated DateTime 08/21/2024 35813.8434 8 g 129 mm[Hg] 82 mm[Hg] Suzie Muñoz [facility] 08/21/2024 15:13:22 Date Recorded Body weight Body mass index (BMI) Body height Systolic blood pressure Diastolic blood pressure Provider Name and Address Organization Details Last Updated DateTime 08/28/2024 48353.02 822 g 33.8 kg/m2 166.37 cm 133 mm[Hg] 84 mm[Hg] Suzie Muñoz [facility] 16:50:08 Date Recorded Body height Body mass index (BMI) Body weight Systolic blood pressure Diastolic blood pressure Provider Name and Address Organization Details Last Updated DateTime 09/04/2024 166.37 cm 34.1 kg/m2 19837.21 g 135 mm[Hg] 81 mm[Hg] Suziejennifer Muñoz [facility] 14:16:04 Date Recorded Body height Body mass index (BMI) Body weight Systolic blood pressure Diastolic blood pressure Systolic blood pressure Diastolic blood pressure Provider Name and Address Organization Details Last Updated DateTime 166.37 cm 34.3 kg/m2 96727.8 1 g 170 mm[Hg] 92 mm[Hg] 123 mm[Hg] 81 mm[Hg] [facility] 10:21:38 Social History Question Answer Notes LastModified by Organizat ion Details LastModified Time Tobacco Smoking Status Never Smoker [facility] 10/26/2022 11:53:53 Do You Have An Advance Directive? No [email or web address] Information not available 05/16/2021 What Is Your Level Of Alcohol Consumption? None [email or web address] Information not available 02/12/2024 If You Are , What Was Your Level Of Alcohol Consumption Prior To ? Occasional Information not available 10/26/2022 Are You Blind Or Do You Have Difficulty Seeing? No [email or web address] Information not available 10/19/2020 What Is Your Level Of Caffeine Consumption? Occasional [email or web address] Information not available 10/19/2020 How Much Tobacco Do You Chew? None [email or web address] Information not available 05/16/2021 In The 14 Days Before Symptom Onset, Have You Had Close Contact With A Laboratory-confir med COVID-19 While That Case Was Ill? No [email or web address] Information not available 10/19/2020 In The 14 Days Before Symptom Onset, Have You Had Close Contact With A Person Who Is Under Investigation For COVID-19 While That Person Was Ill? No [email or web address] Information not available 05/16/2021 Have You Been To An Area Known To Be High Risk For COVID-19? No Information not available 10/19/2020 Are You Deaf Or Do You Have Serious Difficulty Hearing? No [email or web address] Information not available 10/19/2020 What Type Of Diet Are You Following? REGULAR [email or web address] Information not available 10/19/2020 Do You Or Have You Ever Used E-cigarettes Or Vape? Never Used Electronic Cigarettes Information not available 10/26/2022 What Is The Highest Grade Or Level Of School You Have Completed Or The Highest Degree You Have Received? [id number] [email or web address] Information not available 05/16/2021 Are There Any Guns Present In Your Home? No [email or web address] Information not available 05/16/2021 What Was The Date Of Your Most Recent Tobacco Screening? 09/09/2024 [email or web address] Information not available 09/09/2024 Have You Ever Been Counseled For Unhealthy Alcohol Use? No [email or web address] Information not available 10/26/2022 Do You Use Protection During Sex? No [email or web address] Information not available 05/16/2021 Do You Use Your Seat Belt Or Car Seat Routinely? Yes [email or web address] Information not available 10/19/2020 Do You Have Smoke And Carbon Monoxide Detectors In Your Home? Yes [email or web address] Information not available 10/19/2020 Do You Or Have You Ever Used Smokeless Tobacco? Never Used Smokeless Tobacco [email or web address] Information not available 10/26/2022 How Much Tobacco Do You Smoke? No Information not available 02/12/2020 Do You Feel Stressed (tense, Restless, Nervous, Or Anxious, Or Unable To Sleep At Night)? [id number] [email or web address] Information not available 10/19/2020 Do You Use Any Illicit Or Recreational Drugs? No [email or web address] Information not available 10/19/2020 Do You Use Sunscreen Routinely? Yes [email or web address] Information not available 10/19/2020 Has Tobacco Cessation Counseling Been Provided? No [email or web address] Information not available 10/26/2022 Have You Used IV Drugs? No [email or web address] Information not available 05/16/2021 Do You Or Have You Ever Used Any Other Forms Of Tobacco Or Nicotine? No [email or web address] Information not available 10/26/2022 Sex: Unknown Functional Status Question Answer Note LastModified by Organizat ion Details LastModified Time Do you have difficulty walking or climbing stairs? No [email or web address] Information not available 10/26/2022 Are you able to walk? [email or web address] Information not available 10/19/2020 Are you able to care for yourself? Yes Information not available 10/26/2022 Do you have difficulty dressing or bathing? No [email or web address] Information not available 10/26/2022 What is your exercise level? Occasional [email or web address] Information not available 11/27/2019 Mental Status None recorded. Family History Relationship Description Onset Age of this Age Resolved Age Notes LastModified by Organization Details LastModified Time Maternal Grandfather Hypertensive disorder [email or web address] Not available 2019 16:39:26 Father No current problems or disability Not available 09/09 09:04:20 Mother No current problems or disability [email or web address] Not available 09/09 09:04:20 Notes:Maternal grandfather: Hypertension Medical History Condition Response Allergies (Food, seasonal, environmental ) N Other N Blood Transfusion N Drug/Latex Allergies/Reactions N Breast Cancer N Dermatologic Disorders N [...] Code Diagnosis Note 1096 Alberto Perez MD [place] [address],[place] [address] 10/29/2019 16:00:03 10/29/2019 17:24:09 Routine care 033756365 Z34.01 4442 Lennie Dockery [facility] [address] [place] [address] 11/27/2019 14:58:29 11/27/2019 16:04:54 Routine care 886042696 Z34.92 [id number] [facility] [address] [place] [address] 12/17/2019 14:18:54 01/06/2020 11:21:36 Routine care 848058466 Z34.92 6561 Wilma Short [place] [address] [place] [address] 12/17/2019 14:19:26 12/17/2019 17:40:30 screening for malformation 669139216 Z36.3 15970 [facility] [address] [place] [address] 01/14/2020 13:51:51 01/14/2020 14:51:21 Routine care 324275956 Z34.92 15219 [facility] [address] [place] [address] 01/14/2020 13:52:36 01/14/2020 14:50:48 condition affecting obstetrical care of mother 750840390 O35.8XX0 Z3A.23 57176 Lennie Dockery [facility] [address] [place] [address] 02/12/2020 14:16:13 02/12/2020 15:50:05 Routine care 367956218 Z34.92 [id number] [address] 02/23/2020 12:16:44 02/23/2020 14:36:50 Routine care 301520327 Z34.92 68334 Lennie Dockery [facility] [address] [place] [address] 03/11/2020 16:12:31 03/11/2020 17:20:59 Routine care 576556153 Z34.92 [id number] [facility] [place] [address] 03/25/2020 16:01:10 03/27/2020 22:07:56 Routine care 179292137 Z34.92 84597 [facility] [place] [address] 04/08/2020 16:16:54 04/08/2020 16:48:12 Routine care 669289679 Z34.92 00169 [facility] [place] [address] 04/15/2020 15:00:52 04/15/2020 15:44:45 Routine care 319540035 Z34.92 05146 [facility] [place] [address] 04/22/2020 14:42:01 04/22/2020 15:35:28 Routine care 211583636 Z34.92 [id number] Lennie Dockery [facility] [address],[place] [address] 04/29/2020 15:03:58 04/29/2020 16:29:46 Routine care 459887902 Z34.92 [id number] Lennie Dockery [facility] [address],[place] [address] 05/10/2020 16:10:02 05/10/2020 17:47:11 Mixed anxiety and depressive disorder 817376151 F41.8 56394 Lennie Dockery [facility] [address],[place] [address] 05/17/2020 16:50:57 05/19/2020 16:26:53 Elevated blood-pressure reading without diagnosis of hypertension 860729640 R03.0 99226 Lennie Dockery [facility] [address],[place] [address] 06/03/2020 12:18:42 06/03/2020 16:34:36 care 068412577 Z39.2 Contracept ion care management 764015228 Z30.9 23096 Lennie Dockery [facility] [address],[place] [address] 06/22/2020 17:21:23 06/23/2020 18:45:35 care 541690374 Z39.2 revision of repair, no charge [id number] Lennie Dockery [facility] [address],[place] [address] 10/19/2020 13:54:50 10/19/2020 16:03:24 Gynecologic examination 08258249 Z01.419 [id number] Lennie Dockery [facility] [address],[place] [address] 05/16/2021 12:24:03 05/16/2021 14:23:02 Surveillance of oral contraception 474605927 Z30.41 Contracept ion care management 080904673 Z30.9 [id number] Lennie Dockery [facility] [address],[place] [address] 07/27/2022 16:06:56 07/30/2022 14:38:51 Gynecologic examination 86472514 Z01.419 recheck bp at med check in 3 months Pain in pelvis 27077046 R10.2 refer to PT consider PCP for imaging [id number] [facility] [address],[place] [address] 10/26/2022 11:53:39 10/26/2022 12:27:26 Contraception care management 319688581 Z30.9 continue norethindr one if desires, can consider IUD (mirena) discussed call and will place on cycle if decides Elevated blood-pressure reading without diagnosis of hypertension 175971041 R03.0 cont to monitor see pcp for followup [id number] [facility] [address],[place] [address] 02/12/2024 13:57:44 02/12/2024 14:26:18 [id number] [facility] [address] [address] 02/12/2024 13:58:16 02/12/2024 15:28:15 Amenorrhea 17656515 N91.2 Venereal d isease screening 553305711 Z11.3 [id number] [facility] [address] [place] [address] 03/18/2024 15:46:44 03/18/2024 17:36:21 screening 778073449 Z36.82 Z3A.13 [id number] Lennie Dockery [facility] [address] [place] [address] 03/18/2024 15:48:01 03/19/2024 11:22:08 Routine care 847918214 Z34.92 Gestation period, 13 weeks 16148233 Z3A.13 [id number] [facility] [address],[place] [address] 04/10/2024 11:30:07 04/10/2024 13:49:37 Routine care 318096354 Z34.92 [id number] [facility] [address],[place] [address] 05/06/2024 14:02:30 05/06/2024 15:06:26 screening for malformation 728125609 Z36.3 Z3A.20 [id number] [facility] [address],[place] [address] 05/06/2024 14:03:06 05/06/2024 15:36:46 Routine care 109134114 Z34.92 [id number] [facility] [address],[place] [address] 06/05/2024 12:30:49 06/05/2024 13:52:18 Gestation period, 24 weeks 365571826 Z3A.24 [id number] [facility] [address],[place] [address] 06/26/2024 14:05:58 06/26/2024 16:08:59 Large for gestation age fetus 975512181 O36.62X0 Z3A.27 [id number] [facility] [address],[place] [address] 06/26/2024 14:09:55 06/26/2024 15:25:58 Gestation period, 27 weeks 82790468 Z3A.27 [id number] [facility] [address],[place] [address] 07/24/2024 11:49:49 07/24/2024 13:46:14 Gestation period, 31 weeks 17341727 Z3A.31 [id number] [facility] [address],[place] [address] 08/07/2024 12:01:15 08/07/2024 12:32:47 Gestation period, 33 weeks 04946513 Z3A.33 [id number] Lennie Dockery [facility] [address],[place] [address] 08/21/2024 14:24:55 08/21/2024 15:38:20 Gestation period, 36 weeks 57696283 Z3A.36 [id number] [facility] [address],[place] [address] 08/21/2024 14:25:30 08/21/2024 15:09:26 Large for gestation age fetus 119159042 O36.62X0 Z3A.35 [id number] Lennie Dockery [facility] [address],[place] [address] 08/28/2024 16:30:25 08/31/2024 10:22:44 Gestation period, 36 weeks 90950574 Z3A.36 [id number] Lennie Dockery [facility] [address],[place] [address] 09/04/2024 14:05:45 09/04/2024 14:37:30 Gestation period, 37 weeks 48194083 Z3A.37 [id number] Lennie Dockery [facility] [address],[place] [address] 09/09/2024 09:04:13 09/09/2024 10:58:48 Gestation period, 38 weeks 50173509 Z3A.38 Health Concerns Section Related Observation LastModified by Organization Detai ls LastModified Time None Recorded Concern Status LastModified by Organization Details LastModified Time None Recorded Advance Directives Directive N: Payers Encounter Date Sequence Insurance Name Policy Number Policy [place] Covered Member ID Ques[place] Member ID Guarantor Name 08/21/2024 1 [facility] [id number] Artis La Marque [id number] 2 Judith Janet 08/28/2024 1 [facility] [id number] Artis La Marque [id number] Judith La Marque 09/04/2024 1 [facility] [id number] Artis Gonzales [id number] Judith Janet 09/09/2024 1 [facility] [id number] Artis Gonzales [id number] Judith La Marque OBGyn Episode Ob Episode Information Episode Created Date Number of Fetuses Patient Bloodtype Patient rh Status Prepregnancy Weight lbs Domestic Partner Domestic Partner Phone Father Name Business Services Sales Agent Status 10/29/19 20 1 A Positive 143 CLOSED Fetus Data First Name Last Name Admitted to NICU Weight (g) Sex Living Outcome Pediatric Complications Fetus ID Race Codes Race Delivery Type 4280.77 45 F true Full Term 532 Vaginal Delivery Problems Problem Notes Problem Name Start Date End Date Resolution Snomed Code Not e Choroid plexus cyst 01/14/2020 SELFRESOLVED 441198 004 Resolved Hip pain 28655871 & pubis pa in - referred to [facility] 03/17 Mario Calculation Initial Mario Date Initial [...] 20 0 Pre- Flowsheet Flowsheet Date 10/29/2019 Power Score Blood Edema Fundus Height Fundus Units Glucose Ketones Leukocytes Nitrite Labor Signs Protein Cervic Dilation Cervic Effacement Cervic Station 12 trace Type Weight in lbs Pre/Post Dialysis Refused Weight 143.825326631404 BP Diastolic BP Location Tested BP Systolic BP Type 81 123 Fetus Heart Rate Present A 167 Fetus Movement Comments Flowsheet Date 11/27/2019 Power Score Blood Edema Fundus Height Fundus Units Glucose Ketones Leukocytes Nitrite Labor Signs Protein Cervic Dilation Cervic Effacement Cervic Station Type Weight in lbs Pre/Post Dialysis Refused Weight 144.554045314476 BP Diastolic BP Location Tested BP Systolic [...] Weight in lbs Pre/Post Dialysis Refused Weight 147.893380331612 BP Diastolic BP Location Tested BP Systolic BP Type 78 120 Fetus Heart Rate Present Fetus Movement A Yes Comments Pt doing well. Baseline barbi katy. 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 Flowsheet Date 01/14/2020 Power Score Blood Edema [...] Weight in lbs Pre/Post Dialysis Refused Weight 156.118263190096 BP Diastolic BP Location Tested BP Systolic BP Type 83 L arm 118 sitting Fetus Heart Rate Present Fetus Movement A Yes Comments FLIGHT ENGINEER PERFORMANCE QUALIFIED resolved. PT doing well. Leg cramps. Increase potassium. Flowsheet Date 02/12/2020 Power Score Blood Edema Fundus Height Fundus Units Glucose Ketones Leukocytes Nitrite Labor Signs Protein Cervic Dilation Cervic Effacement Cervic Station neg none 27 trace Type Weight in lbs Pre/Post Dialysis Refused Weight 165.984620511176 BP Diastolic BP Location Tested BP Systolic [...] Weight in lbs Pre/Post Dialysis Refused Weight 168.714282169589 BP Diastolic BP Location Tested BP Systolic [...] Weight in lbs Pre/Post Dialysis Refused Weight 173.975589409703 BP Diastolic BP Location Tested BP Systolic [...] Weight in lbs Pre/Post Dialysis Refused Weight 178.090475154636 BP Diastolic BP Location Tested BP Systolic [...] Weight in lbs Pre/Post Dialysis Refused Weight 183.088735397508 BP Diastolic BP Location Tested BP Systolic [...] Weight in lbs Pre/Post Dialysis Refused Weight 183.000280590828 BP Diastolic BP Location Tested BP Systolic [...] Weight in lbs Pre/Post Dialysis Refused Weight 183.536114748480 BP Diastolic BP Location Tested BP Systolic [...] Weight in lbs Pre/Post Dialysis Refused Weight 185.061420095386 BP Diastolic BP Location Tested BP Systolic [...] Weight in lbs Pre/Post Dialysis Refused Weight 167.164047209816 BP Diastolic BP Location Tested BP Systolic [...] Estim ated Date of Delivery false Thalassemia (Tamazight, Syriac, Mediterranean, Or Background): MCV < 80 false Neural Tube Defect (Meningomyelocele, Spina Bifi da, Or Anencephaly) false Congenital Heart Defect false Down Syndrome false Kevin-Sachs (eg, Mormon, Cajun, Qatari-Sarasota) f alse Dante Disease false Sickle Cell Disease Or Trait () false Hemophilia Or Other Blood Disorders false Muscular Dystrophy false Cystic Fibrosis false Yogesh's Chorea false Intellectual Disability/Autism false If Yes, [...] Discharge Date Comments 0 Induce d 39.2 [email or web address] Discharge Information Feeding Method Contraceptive Method Maternal HG B and HCT Levels Ob Episode Information Episode Created Date Number of Fetuses Patient Bloodtype Patient rh Status Prepregnancy Weight lbs Domestic Partner Domestic Partner Phone Father Name Business Services Sales Agent Status 03/18/20 24 1 A Positive 171 Farhad La Marque OPEN Fetus Data First Name Last Name Admitted to NICU Weight (g) Sex Living Outcome Pediatric Complications Fetus ID Race Codes Race Delivery Type [id number] Problems Problem Notes Problem Name Start Date End Date Resolution Snomed Code Not e Large for gestation age fetus 902102397 9lb 7 oz in 202 0 Mario [...] 0 0 Pre-jesus Flowsheet Flowsheet Date 03/18/2024 Power Score Blood Edema Fundus Height Fundus Units Glucose Ketones Leukocytes Nitrite Labor Signs Protein Cervic Dilation Cervic Effacement Cervic Station none none trace Type Weight in lbs Pre/Post Dialysis Refused Weight 173.829699127353 BP Diastolic BP Location Tested BP Systolic [...] Type Weight in lbs Pre/Post Dialysis Refused 174.78872635855 BP Diastolic BP Location Tested BP Systolic [...] Type Weight in lbs Pre/Post Dialysis Refused 182.246743598859 BP Diastolic BP Location Tested BP Systolic [...] Type Weight in lbs Pre/Post Dialysis Refused 190.086340324703 BP Diastolic BP Location Tested BP Systolic [...] Type Weight in lbs Pre/Post Dialysis Refused 197.682303599923 BP Diastolic BP Location Tested BP Systolic [...] Type Weight in lbs Pre/Post Dialysis Refused 198.394735963290 BP Diastolic BP Location Tested BP Systolic [...] Weight in lbs Pre/Post Dialysis Refused Weight 202.091896500377 BP Diastolic BP Location Tested BP Systolic [...] Type Weight in lbs Pre/Post Dialysis Refused 204.446219633631 BP Diastolic BP Location Tested BP Systolic [...] Type Weight in lbs Pre/Post Dialysis Refused 206.902242582703 BP Diastolic BP Location Tested BP Systolic BP Type 84 133 Fetus Heart Rate Present A 145 Fetus Movement A Yes Comments Patient is having some contr actions and swelling. +FM, precautions and eduction, IOL scheduled f/u one week Flowsheet Date 09/04/2024 Power Score Blood Edema Fundus Height Fundus Units Glucose Ketones Leukocytes Nitrite Labor Signs Protein Cervic Dilation Cervic Effacement Cervic Station neg none 39 cm Type Weight in lbs Pre/Post Dialysis Refused Weight 208.706272034510 BP Diastolic BP Location Tested BP Systolic BP Type 81 135 Fetus Heart Rate Present A 148 Present Fetus Movement A Yes Comments Patient is having some contr actions. +FM, precautions and education, plan membrane sweep next week, IOL scheduled. Flowsheet Date 09/09/2024 Power Score Blood Edema Fundus Height Fundus Units Glucose Ketones Leukocytes Nitrite Labor Signs Protein Cervic Dilation Cervic Effacement Cervic Station neg none none neg Type Weight in lbs Pre/Post Dialysis Refused Weight 209.029200409931 BP Diastolic BP Location Tested BP Systolic BP Type 92 170 81 123 Fetus Heart Rate Present Fetus Movement A Yes Comments Patient is having some contr actions. denies peterson, visual changes, discussed with dr. mcleod, to send over for delivery, elevated bp with elevated pcr, 5-6 cm/50/-2 Flowsheet Date 09/09/2024 Power Score Blood Edema Fundus Height Fundus [...]
--- OUTSIDE RECORDS SUMMARY | 2024-09-09 11:09 | XMS_ITS | Clinical Summary ---
Author Organization [facility] [place] [address] [facility] lto Address [address] nichol [facility] [place] [address] Care Team Providers Care Metal Treater Name Role Phone David Lindquist MD Primary Care Provider [phone] No, Physician Unavailable Lennie Dockery PROCESSING REP Unavailable [phone] Allergies Active Allergy Reactions Criticality Noted Date [...] pubis pain - referred to [facility] 03/17 Annual physical exam 06/19/2023 Assessment & Plan (06/19/2023 11:30 AM MUSHROOM GROWER): Discussed lifestyle modifications, diet and exercise. Routine blood work ordered/reviewed today. Yearly vision and dental examinations. Tachycardia 09/06/2022 Essential hypertension 08/06/2022 Assessment & Plan (06/19/2023 11:32 AM MUSHROOM GROWER): At goal at this time Cot[place]ue current [...] activity. Assessment & Plan (09/06/2022 10:29 AM MUSHROOM GROWER): BP Readings from Last 3 Encounters: 09/06/22 [...] activity. Assessment & Plan (08/06/2022 12:15 PM MUSHROOM GROWER): BP Readings from Last 3 Encounters: 08/06/22 [...] 05/23/2022 Assessment & Plan (05/23/2022 9:53 AM MUSHROOM GROWER): No improvement with claritin or ibuprofen will [...] patient's age to complete this topic Insurance [facility] [employer] Address[facility] [id number] [place] [id number] [facility] [employer] Address: [facility] [id number] [place] [address] [facility] Care Teams Metal Treater Relationship Specialty Start Date End Date David Lindquist MD PCP - General Family Medicine 05/23/22 No, Physician 05/23/22 Lennie Dockery NP Nurse Practitioner Obstetrics and Gynecology 09/06/22
[2024-09-09 11:11] LABS: Syphilis IgG/IgM Antibody Negative (Negative)
[2024-09-09 11:20] LABS: HIV 1/2 Ab P24 Ag Result Negative (Negative)
--- NOTE | 2024-09-09 13:03 | WPDOBADMIT ---
Obstetrics - Admit Note Admission Note: record reviewed. No pertinent additions to the history and/or any subsequent changes in the physical findings that are not consistent with the expected course of the were found. Additions to the history and/or subsequent changes in the physical findings follow. gestational HTN, labs done, denies peterson, visual changes, SVE 5-6/60/-2 AROM large amount of clear, odorless fluid, anticipate vaginal delivery
[2024-09-09] MEDS: LACTATED RINGERS 1,000 ML 125 ML IV CONT ×2 (13:23→14:07)
--- NOTE | 2024-09-09 13:44 | WPDANESEPP ---
Anes - Eval Pre Procedure Procedure: labor epidural Date/Time: 09/09/24 13:44 Preop Diagnosis: labor pain Pre Op Diagnosis: IOL Patient Data Age: 28 Gender: F Height: 1.65 m Weight: 95 kg Last Vital Signs Pulse 92 09/09/24 13:30 BP 128/77 09/09/24 13:30 O2 Del Method Room Air 09/09/24 10:20 Allergies Allergy/AdvReac Type Severity Reaction Status Date / Time amoxicillin Allergy Unknown itchy Verified 09/03/24 19:56 Home Medications ?Medication ?Instructions ?Recorded ?Confirmed ?Type ferrous sulfate 143 mg (45 mg 143 mg PO ONCE 04/11/20 09/03/24 History iron) tablet,extended release vit no.95-ferrous 1 tablet PO DAILY 04/11/20 09/03/24 History fumarate 28 mg-folic acid 800 mcg tablet () famotidine 20 mg tablet 20 mg PO DAILY 08/29/24 09/03/24 History cyclobenzaprine 5 mg tablet 5 mg PO Q8H 09/03/24 09/09/24 History Laboratory Tests 09/09/24 09/09/24 10:24 10:25 WBC 7.7 K/mm3 (4.5-10.0) RBC 3.78 L M/mm3 (4.2-5.4) Hgb 11.8 L g/dL (12.0-15.0) Hct 36.0 L % (37.0-47.0) MCV 95.2 fl (80-100) MCH 31.2 pg (26-34) MCHC 32.8 g/dl (32-36) RDW 15.1 H % (11.5-14.5) Plt Count 356 k/mm3 (150-375) MPV 9.4 fl (7.4-10.4) Immature Gran % (Auto) 0.8 H % (0-0.5) Neut % (Auto) 63.0 % (45.5-73.1) Lymph % (Auto) 25.8 % (18.3-44.2) Clay % (Auto) 9.3 H % (2.6-8.5) Eos % (Auto) 0.8 % (0-4.4) Baso % (Auto) 0.3 % (0.2-1.2) Lymph # (Auto) 1.98 K/mm3 (0.9-3.2) Clay # (Auto) 0.7 H K/mm3 (0.1-0.6) Eos # (Auto) 0.1 K/mm3 (0-0.3) Baso # (Auto) 0.0 K/mm3 (0.0-0.1) Abs Immat Gran (auto) 0.06 H K/mm3 (0.00-0.031) Absolute Neuts (auto) 4.8 K/mm3 (1.3-6.7) Absolute Nucleated RBC 0.000 K/mm3 (0.0-0.012) Nucleated RBC % 0.0 % (0.0-0.2) Sodium 138 mmol/L (137-145) Potassium 4.0 mmol/L (3.4-5.0) Chloride 107 mmol/L (98-107) Carbon Dioxide 18 L mmol/L (22-30) Anion Gap 13 H mmol/L (4-12) BUN 5 L mg/dL (7-17) Creatinine 0.59 L mg/dL (0.7-1.0) Estim Creat Clear Calc Not Reportable Estimated GFR > 60 (59 - ) Glucose 92 mg/dL (65-110) Uric Acid 5.6 mg/dL (2.5-7.5) Calcium 10.4 H mg/dL (8.4-10.2) Total Bilirubin 0.5 mg/dL (0.2-1.3) AST 20 U/L (14-36) ALT 14 U/L (6-35) Alkaline Phosphatase 155 H U/L (38-126) Total Protein 7.0 g/dL (6.3-8.2) Albumin 3.7 g/dL (3.5-5.1) Syphilis IgG/IgM Ab Negative (Negative) RPR Pending RPR Titer Add Testing Pending HIV 1&2 Ab/P24 Ag 4thGn Negative (Negative) Blood Type A Positive Antibody Screen Negative Patient hx anesthesia problems: none Family hx anesthesia problems: none Results Review: All pre-operative results and documents have been reviewed as part of the pre-operative evaluation. [facility] Past Medical History Medical History Patient denies significant medical history Family History Family History Father Depression Sibling Heart murmur Grandparent Acute myocardial infarction Social History Social History Smoking status: Never smoker Second hand tobacco smoke exposure: No Substance use: never Do You Feel Safe in your Home?: Yes Lack of Transportation: No Lack of Food: Never True Current Housing: I Have Housing Concerned About Future Housing: No Difficulty Paying Gas/Electric Bills: No Difficulty Paying for Meds: No Currently Unemployed: No Education: High School Diploma/GED Difficulty w/ Childcare or Family Care: No Spiritual care concerns: No Exam Day of Procedure 09/09/24 13:44 Patient weight: obese Heart: regular rate and rhythm Lungs: clear to auscultation Airway: Mallampati scale class II Neurological: alert and oriented
[2024-09-09] MEDS: OXYTOCIN 30 UNITS/NS 500 ML 30 UNITS/500 ML BAG IV CONT (15:29)
[2024-09-09] MEDS: FAMOTIDINE 20 MG/2 ML VIAL IV PUSH (16:11)
[2024-09-09] MEDS: ONDANSETRON INJ 4 MG/2 ML VIAL IV PUSH (16:47)
[2024-09-09] MEDS: SODIUM CHLORIDE 0.9% IV 300 ML 600 ML I-UTERINE (18:49)
[2024-09-09] MEDS: ACETAMINOPHEN 500 MG TABLET 1000 MG PO (21:45)
--- NOTE | 2024-09-09 21:49 | PM.OBPRVD ---
OB - Vaginal Delivery Note Procedure Delivery date: 09/09/24 Events: Gestational Hypertension Induction method: AROM and Per Pitocin Protocol Delivery monitor: External FHT and Internal Uterine Route of delivery: Episiotomy description: None Laceration Description: None Specimen: No Quantitative Blood Loss (ml): 200 Anesthesia type: Epidural Disposition: Floor Complications: No immediate complications Baby Date of : 09/09/24 Time of : 21:36 Gestational Age by Date: 38 Infant gender: Female Weight (pounds): 10 Weight (ounces): 1 presentation: vertex position: Right Occiput Anterior Placenta delivery description: Spontaneous Cord Vessel Description: 3 Vessels, Nuchal Cord (x1), Loose and Reduced score one minute: 8 score five minutes: 8
[2024-09-09] MEDS: OXYTOCIN 30 UNITS/NS 500 ML 30 UNITS/500 ML BAG 125 UNITS IV CONT (22:15)
[2024-09-10] VITALS: BP 122/81; PULSE 85; RESP 18; TEMP 36.5; O2SAT 100
--- NOTE | 2024-09-10 | OBPPTRN ---
Patient transferred to post room #278 via wheelchair. Support person present. Oriented to unit, room, information board, rooming in, admission packet and security measures. Patient verbalizes understanding.
[2024-09-10] MEDS: IBUPROFEN 600 MG TABLET PO ×3 (00:45→16:45)
--- NOTE | 2024-09-10 01:35 | PC.NURSE ---
Discussed feeding options with pt due to being sleepy/ reluctant to latch at breast. Pt stated she pumped with her first and wants to try using her own pump to see what she produces and go from there.
--- NOTE | 2024-09-10 04:32 | P.PNOB_ITS ---
OB - PN: Subj Subjective Date/time seen: 09/10/24 04:32 Interval history: pp day 1 doing well no complaints OB - PN: Obj Data Labs 09/09/24 10:25 09/09/24 10:24 Labs: Laboratory Results - last 24 hr 09/09/24 09/09/24 10:24 10:25 WBC 7.7 RBC 3.78 L Hgb 11.8 L Hct 36.0 L MCV 95.2 MCH 31.2 MCHC 32.8 RDW 15.1 H Plt Count 356 MPV 9.4 Immature Gran % (Auto) 0.8 H Neut % (Auto) 63.0 Lymph % (Auto) 25.8 Hitchcock % (Auto) 9.3 H Eos % (Auto) 0.8 Baso % (Auto) 0.3 Lymph # (Auto) 1.98 Hitchcock # (Auto) 0.7 H Eos # (Auto) 0.1 Baso # (Auto) 0.0 Abs Immat Gran (auto) 0.06 H Absolute Neuts (auto) 4.8 Absolute Nucleated RBC 0.000 Nucleated RBC % 0.0 Sodium 138 Potassium 4.0 Chloride 107 Carbon Dioxide 18 L Anion Gap 13 H BUN 5 L Creatinine 0.59 L Estim Creat Clear Calc Not Reportable Estimated GFR > 60 Glucose 92 Uric Acid 5.6 Calcium 10.4 H Total Bilirubin 0.5 AST 20 ALT 14 Alkaline Phosphatase 155 H Total Protein 7.0 Albumin 3.7 Syphilis IgG/IgM Ab Negative HIV 1&2 Ab/P24 Ag 4thGn Negative Blood Type A Positive Antibody Screen Negative OB - PN A/P Plan day: 1 Plan: routine care Time Spent With Patient Time: Total time spent is greater than 50% in coordination of care (as documented) at patient's floor/unit and/or counseling patient: Review of Systems 2 Review of Systems: All systems reviewed & are unremarkable except as noted in HPI and below Exam 2 Const: General: cooperative, healthy appearing and comfortable Resp: Effort & Inspection: normal respiratory effort Cardio: Rate: regular rate Back/Spine/Pelvis: Back: no CVA tenderness Skin: General skin exam: normal color Neuro: General: patient oriented x3
[2024-09-10 05:00] VITALS: BP 105/73; PULSE 94; RESP 18; TEMP 36.1; O2SAT 100
[2024-09-10] MEDS: ACETAMINOPHEN 325 MG TABLET 650 MG PO ×3 (05:30→20:12)
[2024-09-10 06:00] LABS: Hemoglobin 9.2 g/dL (12.0-15.0)
[2024-09-10 07:30] VITALS: BP 108/77; PULSE 84; RESP 18; TEMP 36.9; O2SAT 100
[2024-09-10] MEDS: POLYSACCHARIDE IRON COMPLEX 150 MG CAPSULE PO ×2 (08:35→16:45)
[2024-09-10] MEDS: MULTIVIT/MIN/PREN/FOL AC/IRON TABLET 1 TAB PO (08:35)
[2024-09-10] MEDS: DOCUSATE SODIUM 100 MG CAPSULE PO ×2 (08:35→16:45)
--- NOTE | 2024-09-10 10:00 | PC.NURSE ---
Primary RN says mother is going to feed and would like assistance. She already has baby latched in a laid back cross cradle position on the left breast. She states that the latch isn't painful but that she has noticed when baby comes off the breast her nipple is smashed. We reviewed shallow latch vs baby's mouth needs to grow larger. The latch appears optimal and mom declines pain. Baby was suckling consistently off and on with swallows noted. Mom states that the right breast has never produced as well as the left and she is only going to feed baby on the left side. Recommended consistent pumping of the right breast if she is not going to latch baby to that side. Patient has her own wearable pump and has been pumping after feedings already. She has concerns about supply and wants to have a backup. Encouraged her to allow baby unlimited time at the breast and to burp and offer the other breast if desired. Patient agrees to call out as needed for further assistance. Reported to primary RN.
[2024-09-10 12:01] VITALS: BP 112/75; PULSE 82; RESP 18; TEMP 36.4; O2SAT 98
--- NOTE | 2024-09-10 13:50 | PC.NURSE ---
Infant had a low glucose that required gel and supplementing with formula. Mom is encouraged to pump at this feeding since did not go to breast.
--- NOTE | 2024-09-10 15:16 | WPDANLDPN2 ---
Anes-Prog Note L&D Date/Time: 09/10/24 15:16 Comfortable throughout: labor and delivery Neuraxial method: epidural Epidural/Spinal procedure site: clean & non-tender Neuro status: Neuro function grossly intact. Cardiovascular status: normal Respiratory status: normal Airway patency: baseline Mental status: baseline Post-Op hydration status: normal Vital Signs: Last Vital Signs Temp 36.4 C 09/10/24 12:01 Pulse 82 09/10/24 12:01 Resp 18 09/10/24 12:01 BP 112/75 09/10/24 12:01 Pulse Ox 98 09/10/24 12:01 O2 Del Method Room Air 09/09/24 10:20 Pain score (VAS): 3 I/O: Intake & Output 09/09/24 09/10/24 09/10/24 23:59 07:59 15:59 Intake Total 550 250 Output Total 200 1950 400 Balance -200 -1400 -150 Post-procedural complaints: none Patient feedback: Patient satisfied with anesthetic care.patient stated she has right side hip pain/sciatica intermittently. however patient has pre-existing right hip/sciatica pain for many years. Pain is same as pre-epidural pain and same location. patient was up walking around and satisfied with care.
[2024-09-10 15:46] VITALS: BP 116/71; PULSE 75; RESP 19; TEMP 36.7; O2SAT 99
--- NOTE | 2024-09-10 15:55 | PC.NURSE ---
On 09/10/24, the [facility] cupola man Brenda, provided care and completed [employer] documentation on this patient. I have reviewed the student's documentation and agree with the findings.
[2024-09-10 20:12] VITALS: BP 116/74; PULSE 77; RESP 18; TEMP 36.4; O2SAT 100
[2024-09-11] MEDS: WITCH HAZEL 40 PADS 1 PAD TOPICAL (02:25)
[2024-09-11] MEDS: IBUPROFEN 600 MG TABLET PO ×2 (02:30→09:55)
[2024-09-11] MEDS: ACETAMINOPHEN 325 MG TABLET 650 MG PO ×2 (02:30→09:55)
[2024-09-11 05:30] VITALS: BP 124/69; PULSE 95
--- NOTE | 2024-09-11 05:30 | PC.NURSE ---
Upon entering room this rn noticed pt's hat for toilet was in trash can. Put hat back in toilet and reminded pt that we still need to measure her voids and pt verbalized understanding.
--- NOTE | 2024-09-11 07:29 | PM.OBPNVD ---
OB - PN: Subj Subjective Date/time seen: 09/11/24 07:29 Interval history: pp day 2 doing well no complaints OB - PN: Obj Data Labs 09/10/24 05:24 09/09/24 10:24 OB - PN A/P Plan day: 2 Plan: routine care and discharge home Time Spent With Patient Time: Total time spent is greater than 50% in coordination of care (as documented) at patient's floor/unit and/or counseling patient: Review of Systems Review of Systems: All systems reviewed & are unremarkable except as noted in HPI and below Exam Const: General: cooperative, healthy appearing and comfortable Chest: Chest palpation & inspection: normal inspection of the chest Resp: Effort & Inspection: normal respiratory effort Back/Spine/Pelvis: Back: no CVA tenderness Skin: General skin exam: normal color Neuro: General: patient oriented x3
--- NOTE | 2024-09-11 07:30 | PM.OBDSVD ---
DS: Admitting Diagnosis Discharge Date 09/11/24 Admitting Diagnosis labor, GHTN DS: Discharge Diagnosis Discharge Diagnosis (1) Vaginal delivery: Code(s): O80 - Encounter for full-term uncomplicated delivery Status: Acute OB - DS: Summary OB Procedures : None OB Procedures Intrapartum: Spontaneous Vag Delivery OB Procedures: : None Peripartum Data Laceration Description: None Episiotomy description: None Time Spent with Patient Time attestation: Total time spent providing and/or coordinating discharge services: Discharge Plan Discharge Attending physician on discharge: Uche Lopez Discharging Clinician: Lennie Dockery Patient Disposition: Home, Self-Care Activity: pelvic rest Diet: regular Patient Instructions: Antibiotic Form Patient Language: Sinhala Stand Alone Forms: General Discharge Information Follow-up/Referrals: Lennie Dockery CNM [Certified Nurse Geriatric Assistant] - 4 Weeks Discharge Medications: Continued ferrous sulfate 143 mg (45 mg iron) Tablet Extended Release 143 mg PO ONCE PNV cmb#95-ferrous fumarate-FA [] 28 mg iron- 800 mcg Tablet 1 tablet PO DAILY famotidine 20 mg tablet 20 mg PO DAILY cyclobenzaprine 5 mg tablet 5 mg PO Q8H Date of admission: 09/09/24 09:49 Primary Care Provider: AmeenaDavid Admitting Provider: Alberto Perez Attending physician on admission: Alberto Perez Condition: Stable
[2024-09-11 08:00] VITALS: PULSE 86; RESP 20; O2SAT 100
[2024-09-11 09:00] VITALS: BP 125/82; PULSE 86; RESP 20; TEMP 36.9; O2SAT 100
[2024-09-11] MEDS: MULTIVIT/MIN/PREN/FOL AC/IRON TABLET 1 TAB PO (09:56)
[2024-09-11] MEDS: POLYSACCHARIDE IRON COMPLEX 150 MG CAPSULE PO (09:56)
[2024-09-11] MEDS: DOCUSATE SODIUM 100 MG CAPSULE PO (09:56)
--- NOTE | 2024-09-11 10:05 | PC.NURSE ---
All charting and nursing care performed by student nurse, Mary Chavez, was reviewed by this RN/Clinical Instructor.
[2024-09-11 11:57] VITALS: BP 128/77; PULSE 98; RESP 16; TEMP 36.7; O2SAT 98
--- NOTE | 2024-09-11 12:19 | PC.NURSE ---
0800 Introductions were made, then consulted with patient to assess needs related to . Discussed with mother her?plans to feed?her infant and the?experience so far. Baby had received glucose gel x2 as well as some supplementation bottles of formula. Currently mother has baby optimally latched to her left breast in the football position, no pain. Mother has a Lansinoh Double handsfree pump and an electric Spectra double pump, and is wondering what the suction is for each. I looked up the information and the Lansinoh is 260 mmHg and the Spectra 270 mmHg. This RN spoke with Dr. Pollard, who also spoke with parents, she would like mother to breastfeed on demand, offer formula supplementation post feeds while awaiting mother's milk coming in. Resources provided for inpatient and outpatient services with the feeding sheet, mom/baby guide and name written on the communication board. Mother voiced understanding of information and will call if there is a request for assistance. Reported to the Primary RN. 0930 Consulted with mother concerning needs and she shared her ability to independently latch optimally without pain. Mother is feeding appropriately for growth of infant and understands stimulating to eat if needed. Infant has had appropriate feedings in the last 24 hours meets the outcomes for weight, output, blood sugar and jaundice at this time. Reinforced understanding of milk production, transition of milk, signs of adequate intake, transition of stool, prevention/relief of engorgement, plugged ducts, mastitis, responsive watching for feeding cues, the different methods of stimulating to breastfeed 1-3 hours after the start of the last feeding, community resources, and when to call a provider using the resource of the feeding sheet along with the mom and baby guide. Mother voiced understanding of the information shared, is confident to continue effectively her infant at home, when to call for assistance, denies any additional assistance or education at this time. Reported to the Primary RN.
[2024-09-12 10:25] VITALS: BP 129/90; PULSE 91; RESP 20; TEMP 36.9; O2SAT 99
== END 2024-09-11 14:35 | disposition home or self-care (01) | DRG 807 ==
LOC: ANHLDR 09:59 → ANHOB2 09-10 00:49
PROVIDERS: Admitting Provider Obstetrics & Gynecology; PCP Family Medicine; Referring Provider Advanced Practice Midwife; Visit Provider Obstetrics & Gynecology
DX: O13.4 Gestational [pregnancy-induced] hypertension without significant proteinuria, complicating childbirth (principal); Z37.0 Single live birth; O69.81X0 Labor and delivery complicated by cord around neck, without compression, not applicable or unspecified; Z3A.38 38 weeks gestation of pregnancy
CPT/HCPCS: 36415; 80053; 84550; 85014; 85018; 85025; 86592; 86593; 86703; 86850; 86900; 86901; A9270; G0432; J2405; J2590; J2795; J7030; J7120

== ENCOUNTER 2024-12-08 15:13 | Outpatient (RCR) | payer OTHER, SELFPAY ==
--- NOTE | 2024-12-08 16:05 | OPREHPOC ---
Outpatient Therapy Plan of Care This is a Multidisciplinary Plan of Care that may contain components documented by all disciplines (PT, OT, and ST.) PT Problem 1 PT Problem #1 Knowledge Deficit PT Goal 1 Goal / Goal Update 1. Patient will perform independent HEP Target Visit 3 PT Problem 2 PT Problem #2 Pain PT Goal 1 Goal / Goal Update 1. Patient will report pain does not limit any daily activities Target Visit 5 PT Problem 3 PT Problem #3 Impaired Functional ADLs PT Goal 1 Goal / Goal Update 1. Patient will not have to take breaks during normal activities Target Visit 5 PT Problem 4 PT Problem #4 Impaired Strength PT Goal 1 Goal / Goal Update 1. Improve hip strength to 5/5 in all planes to reduce difficulty with activity 2. Improve diastasis to 2 finger width or less to support spine with activity Target Visit 5
--- NOTE | 2024-12-08 16:05 | PTOPEVAL1 ---
Assessment and note entered by Hannah Obando DPT Evaluation Information Assessment Status Evaluation ICD-10 Condition Codes (PT) Weakness R53.1,Pelvic and perineal pain R10.2, Unspecified urinary incontinence R32,Separation of muscle (nontraumatic) M62.08 Subjective Information Pt reports a history of hip and pelvic pain through and after her pregnancies. Tearing with her first delivery. Also reports she has been diagnosed with a prolapse. Vaginal deliveries in 2019 and August 2024. No real pain recently but has to take breaks during activities at home. Feels some heaviness. Voids less than 10 times a day and sometimes 1 time at night. Can hold urge to void as long as needed. Denies pain with urination. Stress incontinence with a sneeze, maybe a couple times a month. Volume will vary. Has had to change clothes at times. BM once a day, denies pain. Recent pain with pelvic exam and has not used tampons since after her first due to discomfort. No other LEAD ENGINEER or b/b history. Patient goal: be able to do more activities day to day without taking breaks Returns to MD in 6 months. Reported Pain Level Pain Score 0: Self Report Assessment PT Clinical Summary The patient is presenting to skilled therapy at 3 months with a history of pelvic pain. She also reports infrequent stress incontinence and a diagnosis of prolapse. She demonstrates decreased hip and abdominal strength and diastasis recti which are contributing to her difficulty performing normal activities without a break. Patient did not consent to full pelvic assessment this session, will perform next visit if able. She will benefit from therapy to address her impairments in order to fully reduce pain and restore full function. Plan of Care Interventions Electrical Stimulation,Gait Training,Hot Pack/Cold Pack,Manual Therapy,Neuro Re-education,Patient/ Caregiver Education,Therapeutic Activities, Therapeutic Exercise PT Services Indicated Yes Treatment Frequency and 1 time a week for 5 visits total (or based on Duration patient schedule) These treatments will address the objective and functional deficits as defined above. The patient will be advanced safely and appropriately in order for the patient to progress towards his/her prior level of function. Additional exercises will be introduced and as well as a comprehensive home exercise program upon discharge, if needed, ?to ensure carryover of functional gains achieved in the clinic. This treatment plan has been reviewed and agreement upon by the patient.
--- NOTE | 2025-05-14 09:48 | PTOPDC ---
Assessment and note entered by Hannah Obando DPT Evaluation Information Assessment Status Discharge - Pt Not Present ICD-10 Condition Codes (PT) Weakness R53.1,Pelvic and perineal pain R10.2, Unspecified urinary incontinence R32,Separation of muscle (nontraumatic) M62.08 Subjective Information - Assessment PT Clinical Summary Patient only attended initial evaluation. Her case has since been discharged. Plan of Care PT Services Indicated No
== END 2025-03-08 23:59 | disposition home or self-care (01) ==
LOC: ANHPT 15:13
PROVIDERS: PCP Family Medicine; Visit Provider Advanced Practice Midwife
DX: R10.2 Pelvic and perineal pain (principal); G89.29 Other chronic pain
CPT/HCPCS: 97112; 97161